=== PATIENT | male | born 1945 | race Caucasian/White ===

== ENCOUNTER 2019-07-28 07:50 | Inpatient (IN) | payer MEDICARE, OTHER, SELFPAY ==
[2019-07-28] VITALS (11 sets, daily range): BP systolic 112–173; BP diastolic 62–93; PULSE 74–153; RESP 16–34; TEMP 36.7–37.8; O2SAT 91–96; BMI 24.3
--- NOTE | 2019-07-28 08:01 | XRR_ITS ---
PROCEDURE INFORMATION: Exam: XR Chest, 1 View Exam date and time: 07/28/2019 8:28 AM Age: 73 years old Clinical indication: Shortness of breath; Additional info: SOB TECHNIQUE: Imaging protocol: XR of the chest Views: Frontal portable upright view of the chest. COMPARISON: CR Chest 2 views* [id number] 10/22/2016 7:20 PM FINDINGS: Lungs: Patchy bibasilar pulmonary mixed interstitial and alveolar infiltrates. The pulmonary vasculature is normal. Pleural space: No pleural effusion. No pneumothorax. Heart/Mediastinum: The heart is normal in size and contour. Mediastinum: Stable. Bones/joints: Stable. XR/XR chest 1V portable [id number] IMPRESSION: Patchy bibasilar pulmonary infiltrates. Pneumonitis is difficult to exclude. Clinical correlation is recommended.
--- NOTE | 2019-07-28 08:02 | W.ED.GENADLT ---
Documented by User: KARY Kaufman 07/28/19 08:05 HPI - General Adult General: Chief complaint: Shortness of Breath/Dyspnea Stated complaint: shortness of breath Time Seen by Provider: 07/28/19 08:01 History of Present Illness: HPI narrative: Patient presents via ambulance with a 3 to 4-day history of shortness of breath worsening. Patient received amiodarone and breathing treatment in the ambulance. Patient is not on oxygen at home does not do breathing treatments. History of COPD patient continues to smoke. Patient has had a fever and productive cough denies any chest pain Associated symptoms: Reports dyspnea; Deny chest pain, headache(s), nausea, rash or vomiting Review of Systems Const: Reports: fever, chills and body aches Eyes: Denies: change in vision or blurry vision ENMT: Denies: throat pain or nasal congestion Card: Denies: chest pain or shortness of breath on exertion Resp: Reports: shortness of breath, productive cough and wheezing; Denies: non-productive cough GI: Denies: abdominal pain, nausea or vomiting : Denies: difficulty urinating Musc: Denies: extremity pain Skin/Breast: Denies: rash Neuro: Denies: headache Psych: Denies: anxiety or depression Cornell/Lymph: Denies: easy bruising PFSH ED PFSH: Medical History Dementia GERD (gastroesophageal reflux disease) History of hypertension Hyperlipidemia Surgical History History of hernia surgery Family History Father CAD (coronary artery disease) Social History Smoking and tobacco status: current every day smoker Alcohol intake: never Substance/Drug Use: never Physical Exam Const: COMMON NORMALS: no apparent distress, average body habitus and oriented x3 HENMT: COMMON NORMALS: normocephalic HEAD & SCALP: normal to inspection and normocephalic FACE & SINUS: normal facial exam Eye: COMMON NORMALS: conjunctivae normal GENERAL EYE: normal appearance of both eyes CONJUNCTIVA: Yes conjunctivae normal Neck/C-Spine: COMMON NORMALS: no JVD Chest: COMMONS NORMALS: inspection of chest normal Resp: EFFORT & INSPECTION: Yes abnormal respiratory pattern, Yes tachypneic and Yes respiratory distress AUSCULTATION: wheezes expiratory wheezes, inspiratory wheezes and scattered wheezes and diminished lung sounds Cardio: COMMON NORMALS: no JVD, regular rate and regular rhythm RATE: regular rate RHYTHM: regular rhythm GI: COMMON NORMALS: normal to inspection, nondistended, normoactive bowel sounds Extremity: COMMON NORMALS: normal to inspection and full ROM Neuro: COMMON NORMALS: oriented x3 Course Vital Signs: Vital signs: Vital Signs Temperature 98.2 F 07/28/19 13:42 Pulse Rate 93 07/28/19 13:42 Respiratory Rate 20 H 07/28/19 13:42 Blood Pressure 115/70 07/28/19 13:42 Pulse Oximetry 95 07/28/19 13:[address] [facility] - General Adult Lab Data: Labs: Lab Results 07/28/19 07/28/19 07/28/19 Range/Units 07:18 07:18 07:18 WBC 13.0 H (4.0-10.0) 10^3/ uL RBC 5.58 H (4.1-5.3) 10^6/u L Hgb 17.6 H (11.7-16.6) g/dL Hct 53.3 H (42.0-52.0) % MCV 95.5 H (80-94) fL MCH 31.5 (28.0-34.0) pg MCHC 33.0 (30.0-36.0) g/dL RDW 13.2 (12.1-15.1) % Plt Count 166 (130-400) 10^3/c mm MPV 11.7 H (7.4-10.4) fL Neut % (Auto) 82.6 % Lymph % (Auto) 5.9 % [place] % (Auto) 10.9 % Eos % (Auto) 0.0 % Baso % (Auto) 0.2 % Neut # (Auto) 10.7 H (1.8-7.7) 10^3/u L Lymph # (Auto) 0.8 (0.8-4.8) 10^3/u L [place] # (Auto) 1.4 H (0.2-0.9) 10^3/u L Eos # (Auto) 0.0 (0.0-0.8) 10^3/u L Baso # (Auto) 0.0 (0.0-0.1) 10^3/u L Nucleated RBC % (a uto) 0 % Nucleated RBCs # 0.0 /100WBC Specimen Type Sample Site ABG pH (7.35-7.45) ABG pCO2 (35-45) mmHg ABG pO2 (80.0-100.0) mmH g ABG HCO3 (22-26) mmol/L ABG O2 Saturation ABG Base Excess (-2.0-2.0) mmol/ L Juan Test A-a O2 Gradient (5-10) mmHg Hematocrit (42-52) % Hgb O2 Saturation (95-100) % Carboxyhemoglobin (0.4-20.1) %THgb Methemoglobin (0.4-1.5) % Total Hemoglobin (14-18) g/dL Ionized Calcium (1.1-1.4) mmol/L O2 Delivery Device O2 Liters/Min % Drawing In Machine Tender ID Sodium 136 (136-145) mmol/L Potassium 3.8 (3.5-5.1) mmol/L Chloride 93 L (98-107) mmol/L Carbon Dioxide 27 (22-29) mmol/L Anion Gap 19.8 H (5-19) BUN 15 (8-23) mg/dL Creatinine 1.2 (0.7-1.2) mg/dL Glucose 133 H (65-115) mg/dL Calculated Osmolal ity 280 L (285-295) mOsm/k g Lactic Acid (0.5-2.2) mmol/L Calcium 10.0 (8.5-10.5) mg/dL Magnesium 2.1 (1.7-2.3) mg/dL Total Bilirubin 0.7 (0.15-1.2) mg/dL AST 45 H (0-40) U/L ALT 24 (0-41) U/L Alkaline Phosphata se 100 (40-130) IU/L Troponin T Baselin e 89 H (0-15) ng/mL Troponin T 120 Min [place] (0-15) ng/mL Delta Troponin T (0-10) ABS# NT-Pro-B Natriuret Pep 1353 H (0-125) pg/mL Total Protein 9.0 H (6.6-8.7) g/dL Albumin 4.0 (3.5-5.2) g/dL Globulin 5.0 H (1.3-4.6) g/dL Influenza Type A A g (Negative) POC Influenza B Ag (Negative) 07/28/19 07/28/19 07/28/19 Range/Units 08:10 08:24 08:28 WBC (4.0-10.0) 10^3/ uL RBC (4.1-5.3) 10^6/u L Hgb (11.7-16.6) g/dL Hct (42.0-52.0) % MCV (80-94) fL MCH (28.0-34.0) pg MCHC (30.0-36.0) g/dL RDW (12.1-15.1) % Plt Count (130-400) 10^3/c mm MPV (7.4-10.4) fL Neut % (Auto) % Lymph % (Auto) % [place] % (Auto) % Eos % (Auto) % Baso % (Auto) % Neut # (Auto) (1.8-7.7) 10^3/u L Lymph # (Auto) (0.8-4.8) 10^3/u L [place] # (Auto) (0.2-0.9) 10^3/u L Eos # (Auto) (0.0-0.8) 10^3/u L Baso # (Auto) (0.0-0.1) 10^3/u L Nucleated RBC % (a uto) % Nucleated RBCs # /100WBC Specimen Type Arterial Sample Site Radial, left ABG pH 7.39 (7.35-7.45) ABG pCO2 41.7 (35-45) mmHg ABG pO2 57.5 L (80.0-100.0) mmH g ABG HCO3 25.0 (22-26) mmol/L ABG O2 Saturation 91.5 ABG Base Excess -0.2 (-2.0-2.0) mmol/ L Juan Test Pos A-a O2 Gradient 40.2 H (5-10) mmHg Hematocrit 48.1 (42-52) % Hgb O2 Saturation 90.4 L (95-100) % Carboxyhemoglobin 0.9 (0.4-20.1) %THgb Methemoglobin 0.4 (0.4-1.5) % Total Hemoglobin 15.7 (14-18) g/dL Ionized Calcium 1.1 (1.1-1.4) mmol/L O2 Delivery Device Nc O2 Liters/Min 3.5 % Drawing In Machine Tender ID amh Sodium 137.0 (136-145) mmol/L Potassium 3.4 L (3.5-5.1) mmol/L Chloride (98-107) mmol/L Carbon Dioxide (22-29) mmol/L Anion Gap (5-19) BUN (8-23) mg/dL Creatinine (0.7-1.2) mg/dL Glucose 119.0 H (65-115) mg/dL Calculated Osmolal ity (285-295) mOsm/k g Lactic Acid 1.7 (0.5-2.2) mmol/L Calcium (8.5-10.5) mg/dL Magnesium (1.7-2.3) mg/dL Total Bilirubin (0.15-1.2) mg/dL AST (0-40) U/L ALT (0-41) U/L Alkaline Phosphata se (40-130) IU/L Troponin T Baselin e (0-15) ng/mL Troponin T 120 Min [place] (0-15) ng/mL Delta Troponin T (0-10) ABS# NT-Pro-B Natriuret Pep (0-125) pg/mL Total Protein (6.6-8.7) g/dL Albumin (3.5-5.2) g/dL Globulin (1.3-4.6) g/dL Influenza Type A A g Negative (Negative) POC Influenza B Ag Negative (Negative) 07/28/19 Range/Units 09:22 WBC (4.0-10.0) 10^3/ uL RBC (4.1-5.3) 10^6/u L Hgb (11.7-16.6) g/dL Hct (42.0-52.0) % MCV (80-94) fL MCH (28.0-34.0) pg MCHC (30.0-36.0) g/dL RDW (12.1-15.1) % Plt Count (130-400) 10^3/c mm MPV (7.4-10.4) fL Neut % (Auto) % Lymph % (Auto) % [place] % (Auto) % Eos % (Auto) % Baso % (Auto) % Neut # (Auto) (1.8-7.7) 10^3/u L Lymph # (Auto) (0.8-4.8) 10^3/u L [place] # (Auto) (0.2-0.9) 10^3/u L Eos # (Auto) (0.0-0.8) 10^3/u L Baso # (Auto) (0.0-0.1) 10^3/u L Nucleated RBC % (a uto) % Nucleated RBCs # /100WBC Specimen Type Sample Site ABG pH (7.35-7.45) ABG pCO2 (35-45) mmHg ABG pO2 (80.0-100.0) mmH g ABG HCO3 (22-26) mmol/L ABG O2 Saturation ABG Base Excess (-2.0-2.0) mmol/ L Juan Test A-a O2 Gradient (5-10) mmHg Hematocrit (42-52) % Hgb O2 Saturation (95-100) % Carboxyhemoglobin (0.4-20.1) %THgb Methemoglobin (0.4-1.5) % Total Hemoglobin (14-18) g/dL Ionized Calcium (1.1-1.4) mmol/L O2 Delivery Device O2 Liters/Min % Drawing In Machine Tender ID Sodium (136-145) mmol/L Potassium (3.5-5.1) mmol/L Chloride (98-107) mmol/L Carbon Dioxide (22-29) mmol/L Anion Gap (5-19) BUN (8-23) mg/dL Creatinine (0.7-1.2) mg/dL Glucose (65-115) mg/dL Calculated Osmolal ity (285-295) mOsm/k g Lactic Acid (0.5-2.2) mmol/L Calcium (8.5-10.5) mg/dL Magnesium (1.7-2.3) mg/dL Total Bilirubin (0.15-1.2) mg/dL AST (0-40) U/L ALT (0-41) U/L Alkaline Phosphata se (40-130) IU/L Troponin T Baselin e (0-15) ng/mL Troponin T 120 Min [place] 82.67 H (0-15) ng/mL Delta Troponin T -6.33 L (0-10) ABS# NT-Pro-B Natriuret Pep (0-125) pg/mL Total Protein (6.6-8.7) g/dL Albumin (3.5-5.2) g/dL Globulin (1.3-4.6) g/dL Influenza Type A A g (Negative) POC Influenza B Ag (Negative) Discharge Plan Discharge Patient Disposition: Admitted As Inpatient Admit Provider: Shanti Rosas Clinical Impression: Pneumonia, Sepsis, GERD (gastroesophageal reflux disease), Dementia Condition: Stable Discharge Date/Time: 07/28/19 13:03 Sign Out Sign Out Data: Patient Sign Out occurred on 07/28/19 at 08:23. Patient's care was discussed, and care was transferred from to Erik Howard DO. Coding Level of Care Code ED Board Design Engineer for Chg Fwd Exam Comprehensive Documented by User: Erik Howard DO 07/28/19 14:57 HPI - General Adult General: Chief complaint: Shortness of Breath/Dyspnea Stated complaint: shortness of breath Time Seen by Provider: 07/28/19 08:01 History of Present Illness: HPI narrative: Care assumed from midlevel. This is a 71-year-old male presents to cope shortness of breath moderately productive cough. He is also had a low-grade fever. Initially he was significantly tachycardic with what appeared to be some underlying a flutter with resuscitation he did improve. Onset (ago): day(s) Location: chest Radiation: non-radiation Severity: severe Pain Consistency: constant Relieving factors: rest and other (Oxygen) Exacerbating factors: rest Associated symptoms: Reports dyspnea, malaise, nausea and short of breath; Deny chest pain or rash Review of Systems Const: Reports: malaise ENMT: Denies: throat pain, ear pain, nasal discharge or nasal congestion Card: Denies: chest pain, edema, shortness of breath on exertion or shortness of breath when lying down Resp: Reports: shortness of breath, non-productive cough, wheezing and chest congestion GI: Reports: nausea : Denies: flank pain, painful urination, urinary frequency or urinary urgency Skin/Breast: Denies: rash or itching PFSH ED PFSH: Medical History Dementia GERD (gastroesophageal reflux disease) History of hypertension Hyperlipidemia Surgical History History of hernia surgery Family History Father CAD (coronary artery disease) Social History Smoking and tobacco status: current every day smoker Alcohol intake: never Substance/Drug Use: never Physical Exam Const: GENERAL APPEARANCE: cooperative, ill appearing and frail appearing ORIENTATION/CONSCIOUSNESS: Yes awake HENMT: COMMON NORMALS: normocephalic, head/scalp atraumatic, hearing grossly normal bilaterally, external ears normal, EAC's normal, TM's normal bilaterally, nasal mucous membranes and turbinates normal, moist oral mucous membranes and oropharynx normal HEAD & SCALP: normocephalic and atraumatic NOSE: nasal mucous membranes and turbinates normal EXTERNAL EAR: Yes external ears normal EXTERNAL AUDITORY CANAL: EAC's normal TYMPANIC MEMBRANE: TM's normal bilaterally Eye: COMMON NORMALS: PERRL, EOMs intact bilaterally, conjunctivae normal and no scleral icterus CONJUNCTIVA: Yes conjunctivae normal PUPIL: Yes PERRL Neck/C-Spine: COMMON NORMALS: full ROM, no lymphadenopathy, supple and no JVD Lymph: LYMPHATIC: no lymphadenopathy noted and no lymphedema noted Resp: EFFORT & INSPECTION: Yes tachypneic, Yes respiratory distress, Yes labored and Yes actively coughing AUSCULTATION: rhonchi throughout, wheezes and diminished lung sounds Cardio: COMMON NORMALS: no JVD RATE: tachycardic GI: COMMON NORMALS: soft to palpation and no hepatosplenomegaly AUSCULTATION: Yes normoactive bowel sounds PALPATION: Yes soft, No tender, No guarding and Yes no hepatosplenomegaly Extremity: COMMON NORMALS: normal to inspection, normal capillary refill, no clubbing, cyanosis or edema, no calf tenderness and no pedal edema Skin: COMMON NORMALS: no rashes or lesions noted GENERAL SKIN EXAM: no rashes or lesions noted Course Vital Signs: Vital signs: Vital Signs Temperature 98.2 F 07/28/19 13:42 Pulse Rate 93 07/28/19 13:42 Respiratory Rate 20 H 07/28/19 13:42 Blood Pressure 115/70 07/28/19 13:42 Pulse Oximetry 95 07/28/19 13:[address] [facility] - General Adult Lab Data: Labs: Lab Results 07/28/19 07/28/19 07/28/19 Range/Units 07:18 07:18 07:18 WBC 13.0 H (4.0-10.0) 10^3/ uL RBC 5.58 H (4.1-5.3) 10^6/u L Hgb 17.6 H (11.7-16.6) g/dL Hct 53.3 H (42.0-52.0) % MCV 95.5 H (80-94) fL MCH 31.5 (28.0-34.0) pg MCHC 33.0 (30.0-36.0) g/dL RDW 13.2 (12.1-15.1) % Plt Count 166 (130-400) 10^3/c mm MPV 11.7 H (7.4-10.4) fL Neut % (Auto) 82.6 % Lymph % (Auto) 5.9 % [place] % (Auto) 10.9 % Eos % (Auto) 0.0 % Baso % (Auto) 0.2 % Neut # (Auto) 10.7 H (1.8-7.7) 10^3/u L Lymph # (Auto) 0.8 (0.8-4.8) 10^3/u L [place] # (Auto) 1.4 H (0.2-0.9) 10^3/u L Eos # (Auto) 0.0 (0.0-0.8) 10^3/u L Baso # (Auto) 0.0 (0.0-0.1) 10^3/u L Nucleated RBC % (a uto) 0 % Nucleated RBCs # 0.0 /100WBC Specimen Type Sample Site ABG pH (7.35-7.45) ABG pCO2 (35-45) mmHg ABG pO2 (80.0-100.0) mmH g ABG HCO3 (22-26) mmol/L ABG O2 Saturation ABG Base Excess (-2.0-2.0) mmol/ L Juan Test A-a O2 Gradient (5-10) mmHg Hematocrit (42-52) % Hgb O2 Saturation (95-100) % Carboxyhemoglobin (0.4-20.1) %THgb Methemoglobin (0.4-1.5) % Total Hemoglobin (14-18) g/dL Ionized Calcium (1.1-1.4) mmol/L O2 Delivery Device O2 Liters/Min % Drawing In Machine Tender ID Sodium 136 (136-145) mmol/L Potassium 3.8 (3.5-5.1) mmol/L Chloride 93 L (98-107) mmol/L Carbon Dioxide 27 (22-29) mmol/L Anion Gap 19.8 H (5-19) BUN 15 (8-23) mg/dL Creatinine 1.2 (0.7-1.2) mg/dL Glucose 133 H (65-115) mg/dL Calculated Osmolal ity 280 L (285-295) mOsm/k g Lactic Acid (0.5-2.2) mmol/L Calcium 10.0 (8.5-10.5) mg/dL Magnesium 2.1 (1.7-2.3) mg/dL Total Bilirubin 0.7 (0.15-1.2) mg/dL AST 45 H (0-40) U/L ALT 24 (0-41) U/L Alkaline Phosphata se 100 (40-130) IU/L Troponin T Baselin e 89 H (0-15) ng/mL Troponin T 120 Min [place] (0-15) ng/mL Delta Troponin T (0-10) ABS# NT-Pro-B Natriuret Pep 1353 H (0-125) pg/mL Total Protein 9.0 H (6.6-8.7) g/dL Albumin 4.0 (3.5-5.2) g/dL Globulin 5.0 H (1.3-4.6) g/dL Influenza Type A A g (Negative) POC Influenza B Ag (Negative) 07/28/19 07/28/19 07/28/19 Range/Units 08:10 08:24 08:28 WBC (4.0-10.0) 10^3/ uL RBC (4.1-5.3) 10^6/u L Hgb (11.7-16.6) g/dL Hct (42.0-52.0) % MCV (80-94) fL MCH (28.0-34.0) pg MCHC (30.0-36.0) g/dL RDW (12.1-15.1) % Plt Count (130-400) 10^3/c mm MPV (7.4-10.4) fL Neut % (Auto) % Lymph % (Auto) % [place] % (Auto) % Eos % (Auto) % Baso % (Auto) % Neut # (Auto) (1.8-7.7) 10^3/u L Lymph # (Auto) (0.8-4.8) 10^3/u L [place] # (Auto) (0.2-0.9) 10^3/u L Eos # (Auto) (0.0-0.8) 10^3/u L Baso # (Auto) (0.0-0.1) 10^3/u L Nucleated RBC % (a uto) % Nucleated RBCs # /100WBC Specimen Type Arterial Sample Site Radial, left ABG pH 7.39 (7.35-7.45) ABG pCO2 41.7 (35-45) mmHg ABG pO2 57.5 L (80.0-100.0) mmH g ABG HCO3 25.0 (22-26) mmol/L ABG O2 Saturation 91.5 ABG Base Excess -0.2 (-2.0-2.0) mmol/ L Juan Test Pos A-a O2 Gradient 40.2 H (5-10) mmHg Hematocrit 48.1 (42-52) % Hgb O2 Saturation 90.4 L (95-100) % Carboxyhemoglobin 0.9 (0.4-20.1) %THgb Methemoglobin 0.4 (0.4-1.5) % Total Hemoglobin 15.7 (14-18) g/dL Ionized Calcium 1.1 (1.1-1.4) mmol/L O2 Delivery Device Nc O2 Liters/Min 3.5 % Drawing In Machine Tender ID amh Sodium 137.0 (136-145) mmol/L Potassium 3.4 L (3.5-5.1) mmol/L Chloride (98-107) mmol/L Carbon Dioxide (22-29) mmol/L Anion Gap (5-19) BUN (8-23) mg/dL Creatinine (0.7-1.2) mg/dL Glucose 119.0 H (65-115) mg/dL Calculated Osmolal ity (285-295) mOsm/k g Lactic Acid 1.7 (0.5-2.2) mmol/L Calcium (8.5-10.5) mg/dL Magnesium (1.7-2.3) mg/dL Total Bilirubin (0.15-1.2) mg/dL AST (0-40) U/L ALT (0-41) U/L Alkaline Phosphata se (40-130) IU/L Troponin T Baselin e (0-15) ng/mL Troponin T 120 Min [place] (0-15) ng/mL Delta Troponin T (0-10) ABS# NT-Pro-B Natriuret Pep (0-125) pg/mL Total Protein (6.6-8.7) g/dL Albumin (3.5-5.2) g/dL Globulin (1.3-4.6) g/dL Influenza Type A A g Negative (Negative) POC Influenza B Ag Negative (Negative) 07/28/19 Range/Units 09:22 WBC (4.0-10.0) 10^3/ uL RBC (4.1-5.3) 10^6/u L Hgb (11.7-16.6) g/dL Hct (42.0-52.0) % MCV (80-94) fL MCH (28.0-34.0) pg MCHC (30.0-36.0) g/dL RDW (12.1-15.1) % Plt Count (130-400) 10^3/c mm MPV (7.4-10.4) fL Neut % (Auto) % Lymph % (Auto) % [place] % (Auto) % Eos % (Auto) % Baso % (Auto) % Neut # (Auto) (1.8-7.7) 10^3/u L Lymph # (Auto) (0.8-4.8) 10^3/u L [place] # (Auto) (0.2-0.9) 10^3/u L Eos # (Auto) (0.0-0.8) 10^3/u L Baso # (Auto) (0.0-0.1) 10^3/u L Nucleated RBC % (a uto) % Nucleated RBCs # /100WBC Specimen Type Sample Site ABG pH (7.35-7.45) ABG pCO2 (35-45) mmHg ABG pO2 (80.0-100.0) mmH g ABG HCO3 (22-26) mmol/L ABG O2 Saturation ABG Base Excess (-2.0-2.0) mmol/ L Juan Test A-a O2 Gradient (5-10) mmHg Hematocrit (42-52) % Hgb O2 Saturation (95-100) % Carboxyhemoglobin (0.4-20.1) %THgb Methemoglobin (0.4-1.5) % Total Hemoglobin (14-18) g/dL Ionized Calcium (1.1-1.4) mmol/L O2 Delivery Device O2 Liters/Min % Drawing In Machine Tender ID Sodium (136-145) mmol/L Potassium (3.5-5.1) mmol/L Chloride (98-107) mmol/L Carbon Dioxide (22-29) mmol/L Anion Gap (5-19) BUN (8-23) mg/dL Creatinine (0.7-1.2) mg/dL Glucose (65-115) mg/dL Calculated Osmolal ity (285-295) mOsm/k g Lactic Acid (0.5-2.2) mmol/L Calcium (8.5-10.5) mg/dL Magnesium (1.7-2.3) mg/dL Total Bilirubin (0.15-1.2) mg/dL AST (0-40) U/L ALT (0-41) U/L Alkaline Phosphata se (40-130) IU/L Troponin T Baselin e (0-15) ng/mL Troponin T 120 Min [place] 82.67 H (0-15) ng/mL Delta Troponin T -6.33 L (0-10) ABS# NT-Pro-B Natriuret Pep (0-125) pg/mL Total Protein (6.6-8.7) g/dL Albumin (3.5-5.2) g/dL Globulin (1.3-4.6) g/dL Influenza Type A A g (Negative) POC Influenza B Ag (Negative) Imaging Data^: CXR: Radiologist's impression: Imaging protocol: XR of the chest Views: Frontal portable upright view of the chest. COMPARISON: CR Chest 2 views* [id number] 10/22/2016 7:20 PM FINDINGS: Lungs: Patchy bibasilar pulmonary mixed interstitial and alveolar infiltrates. The pulmonary vasculature is normal. Pleural space: No pleural effusion. No pneumothorax. Heart/Mediastinum: The heart is normal in size and contour. Mediastinum: Stable. Bones/joints: Stable. XR/XR chest 1V portable [id number] IMPRESSION: Patchy bibasilar pulmonary infiltrates. Pneumonitis is difficult to exclude. Clinical correlation is recommended. Dictated By:Tapan Maloney MD Discharge Plan Discharge Patient Disposition: Admitted As Inpatient Admit Provider: Shanti Rosas Clinical Impression: Pneumonia, Sepsis, GERD (gastroesophageal reflux disease), Dementia Condition: Stable Discharge Date/Time: 07/28/19 13:03 Sign Out Sign Out Data: Patient Sign Out occurred on 07/28/19 at 08:23. Patient's care was discussed, and care was transferred from to Erik Howard DO. Coding Level of Care Code ED Board Design Engineer for Chg Fwd Exam Comprehensive
--- NOTE | 2019-07-28 08:03 | ECG_ITS ---
Measurements Intervals [place] Rate: 143 P: IN: 0 QRS: 82 QRSD: 126 T: 72 QT: 288 QTc: 445 UNCERTAIN REGULAR RHYTHM MODERATE INTRAVENTRICULAR CONDUCTION DELAY [110+ ms QRS DURATION] ST ELEVATION CONSISTENT WITH INJURY, PERICARDITIS, OR EARLY REPOLARIZATION ELEVATION W/O NORMALLY INFLECTED T WAVE] NONSPECIFIC T-WAVE ABNORMALITY CRITICAL TEST RESULT Compared to ECG 10/22/2016 17:39:58 ST (T wave) deviation now present Early repolarization now present Sinus tachycardia no longer present T-wave abnormality still present Electronically Signed On 07-28-2019 19:32:39 CDT by Jose Naylor M.D. [email or web address]
[2019-07-28] MEDS: sodium chloride 0.9% 1,000 ML 999 ML IV (08:09)
[2019-07-28 08:10] LABS: Basophils % 0.2 %; Hematocrit 53.3 % (42.0-52.0); Hemoglobin 17.6 g/dL (11.7-16.6); Lymphocytes # 0.8 10^3/uL (0.8-4.8); Lymphocytes % 5.9 %; Mean Corpuscular Hemoglobin 31.5 pg (28.0-34.0); Mean Corpuscular Volume 95.5 fL (80-94); Mean Platelet Volume 11.7 fL (7.4-10.4); Monocytes # 1.4 10^3/uL (0.2-0.9); Monocytes % 10.9 %; Neutrophils # 10.7 10^3/uL (1.8-7.7); Neutrophils % 82.6 %; Nucleated Red Blood Cells % 0 %; Platelet Count 166 10^3/cmm (130-400); Red Blood Count 5.58 10^6/uL (4.1-5.3); Red Cell Distribution Width 13.2 % (12.1-15.1)
[2019-07-28] MEDS: ipratropium-albuterol 3 mL Neb INHALATION ×3 (08:20→20:56)
[2019-07-28] MEDS: sodium chloride 0.9% 2,177.25 ML 2177.3 ML IV (08:29)
[2019-07-28] MEDS: levofloxacin-dextrose 5 % 750 MG/150 ML PREMIX 150 MG IV (08:30)
[2019-07-28 08:34] LABS: ABG PCO2 41.7 mmHg (35-45); ABG PH Result 7.39 (7.35-7.45); Alveolar-Arterial Oxygen Gradi 40.2 mmHg (5-10); Arterial Blood Gas Hematocrit 48.1 % (42-52); Base Excess ABG -0.2 mmol/L (-2.0-2.0); Blood Gas Allen Test Pos; Blood Gas LPM 3.5 %; Blood Gas Operator Identificat amh; Blood Gas Sample Site Radial, left; Blood Gas Sample Type Arterial; Carboxyhemoglobin 0.9 %THgb (0.4-20.1); HGB O2 Sat 90.4 % (95-100); Ionized Calcium Level - ABG 1.1 mmol/L (1.1-1.4); Methemoglobin 0.4 % (0.4-1.5); Oxygen Device NC; Oxygen Saturation ABG 91.5; PO2 ABG 57.5 mmHg (80.0-100.0); Potassium Level - ABG 3.4 mmol/L (3.5-5.0); Total Hemoglobin 15.7 g/dL (14-18)
[2019-07-28 08:38] LABS: Troponin(5th) Baseline 89 ng/mL (0-15)
[2019-07-28 08:41] LABS: Influenza A by IFA Negative (Negative); Influenza B by IFA Negative (Negative)
[2019-07-28 08:46] LABS: Alanine Aminotransferase 24 U/L (0-41); Alkaline Phosphatase 100 IU/L (40-130); Anion Gap 19.8 (5-19); Aspartate Amino Transferase 45 U/L (0-40); Blood Urea Nitrogen 15 mg/dL (8-23); Carbon Dioxide 27 mmol/L (22-29); Chloride 93 mmol/L (98-107); Creatinine Clr Calc Pharmacy 55.1477; Glucose 133 mg/dL (65-115); Magnesium 2.1 mg/dL (1.7-2.3); NT Pro B Type Natriuretic Pept 1353 pg/mL (0-125); Osmolality Calculated 280 mOsm/kg (285-295); Potassium 3.8 mmol/L (3.5-5.1); Sodium 136 mmol/L (136-145); Total Bilirubin 0.7 mg/dL (0.15-1.2)
[2019-07-28 09:15] LABS: Lactic Sepsis W/Reflex 1.7 mmol/L (0.5-2.2)
[2019-07-28 09:52] LABS: Troponin 5 2HR 82.67 ng/mL (0-15)
[2019-07-28 09:54] LABS: Troponin 5 2HR Delta -6.33 ABS# (0-10)
--- NOTE | 2019-07-28 10:03 | ECG_ITS ---
Measurements Intervals [place] Rate: 88 P: 40 IN: 172 QRS: 16 QRSD: 137 T: 132 QT: 399 QTc: 485 SINUS RHYTHM INTRAVENTRICULAR CONDUCTION DELAY [130+ ms QRS DURATION] T wave inversion laterally, consider ischemia POSSIBLE INFERIOR MYOCARDIAL INFARCTION [30 ms Q WAVE IN II/aVF], PROBABLY OLD Compared to ECG 10/22/2016 17:39:58 Myocardial infarct finding now present Sinus tachycardia no longer present Electronically Signed On 07-28-2019 19:37:55 CDT by Jose Naylor M.D. [email or web address]
[2019-07-28] MEDS: piperacillin-tazobactam 3.375 GM in sodium chloride 0.9% (plus) 100 ML IV (10:38)
--- NOTE | 2019-07-28 12:03 | P.HP_ITS ---
Providers/Chief Complaint Admitting Physician: Shanti Rosas DO Primary Care Provider: Dr. Montes Chief Complaint: shortness of breath History of Present Illness Isaac Simpson is a 73 year old male with a past medical history of COPD, hypertension and hyperlipidemia that presented to the emergency department today for shortness of breath. Patient has no family members present at bedside and due to what appears to be chronic dementia difficult to obtain HPI. Patient denies any chest pain at this time, reports some occasional shortness of breath and productive cough. He denies being on any oxygen at home. Denies any abdominal pain, no nausea, no vomiting. Patient was seen and evaluated in the emergency department noted to have concern for sepsis secondary to pneumonia and admitted for further evaluation and treatment Review of Systems Const: Denies: fever or chills Eyes: Denies: change in vision ENMT: Denies: nasal congestion Card: Denies: chest pain, palpitations or edema Resp: Reports: shortness of breath and productive cough; Denies: coughing up blood GI: Reports: constipation; Denies: abdominal pain, nausea, vomiting, diarrhea, blood in stool or black tarry stool : Denies: painful urination or blood in urine Musc: Denies: extremity pain or muscle cramps Skin/Breast: Denies: rash or new lesion Neuro: Denies: headache or dizziness Psych: Denies: anxiety or depression Endo: Denies: excessive urination or hot flashes Cornell/Lymph: Denies: easy bruising or easy bleeding Medications/Allergies Home Medications Medication Instructions Recorded Confirmed Last Taken Type aspirin 81 mg PO DAILY 07/28/19 07/28/19 07/21/19 History donepezil 10 mg PO DAILY 07/28/19 07/28/19 07/21/19 History memantine 10 mg PO BID 07/28/19 07/28/19 07/21/19 History mirtazapine 30 mg PO BEDTIME 07/28/19 07/28/19 07/21/19 History pantoprazole 40 mg PO DAILY 07/28/19 07/28/19 07/21/19 History tamsulosin 0.4 mg PO DAILY 07/28/19 07/28/19 07/21/19 History Allergies Allergy/AdvReac Type Severity Reaction Status Date / Time codeine Allergy Unknown Verified 07/28/19 07:57 PFSH Acute PFSH: Medical History (Updated 07/28/19 @ 12:15 by Shanti Rosas DO) Dementia GERD (gastroesophageal reflux disease) History of hypertension Hyperlipidemia Surgical History (Updated 07/28/19 @ 12:15 by Shanti Rosas DO) History of hernia surgery Family History (Updated 07/28/19 @ 12:15 by Shanti Rosas DO) Father CAD (coronary artery disease) Social History (Updated 07/28/19 @ 12:16 by Shanti Rosas DO) Smoking and tobacco status: current every day smoker Alcohol intake: never Substance/Drug Use: never Vitals/I&O/Wt Last Vital Signs Temp 100.0 F H 07/28/19 07:51 Pulse 127 H 07/28/19 08:39 Resp 24 H 07/28/19 08:39 BP 173/93 07/28/19 07:51 Pulse Ox 95 07/28/19 08:39 Weight last 48 hrs Weight 72.575 kg Physical Exam Const: COMMON NORMALS: alert GENERAL APPEARANCE: cooperative ORIENTATION/CONSCIOUSNESS: Yes awake, Yes oriented to person, Yes oriented to place and Yes oriented to time OTHER: Oriented to place, not oriented to time HENMT: COMMON NORMALS: normocephalic and head/scalp atraumatic HEAD & SCALP: normocephalic and atraumatic Eye: COMMON NORMALS: PERRL PUPIL: Yes PERRL Neck/C-Spine: COMMON NORMALS: supple GENERAL: Yes normal visual inspection Resp: OTHER: Oxygen by nasal cannula in place, diminished breath sounds bilaterally with prolonged expiratory phase and expiratory wheezing bilaterally Cardio: COMMON NORMALS: no murmurs RATE: tachycardic RHYTHM: regular rh ythm GI: COMMON NORMALS: soft to palpation and non-tender INSPECTION: No abdominal distension AUSCULTATION: Yes normoactive bowel sounds PALPATION: Yes soft Extremity: COMMON NORMALS: no clubbing, cyanosis or edema and no calf tenderness Neuro: COMMON NORMALS: CN's II-XII intact bilaterally, moves all extremities and no focal motor deficits SENSORIUM/ORIENTATION: Yes alert, Yes oriented to person, Yes oriented to place and Yes oriented to time SPEECH: speech normal OTHER: Patient is confused, medications implied that he has underlying dementia, no family at bedside to know baseline. Patient is oriented to self, place but not oriented to time. Psych: COMMON NORMALS: cooperative Skin: COMMON NORMALS: no rashes or lesions noted GENERAL SKIN EXAM: no rashes or lesions noted Data : 07/28/19 07:18 07/28/19 07:18 Micro: Microbiology 07/28/19 08:32 Blood Culture - Preliminary Blood SPECIMEN COLLECTED 07/28/19 08:32 Blood Culture - Preliminary Blood SPECIMEN COLLECTED CXR: I personally reviewed and interpreted this imaging study as follows: Radiologist's impression: IMPRESSION: Patchy bibasilar pulmonary infiltrates. Pneumonitis is difficult to exclude. Clinical correlation is recommended. A&P Assessment and plan (1) Sepsis: Sepsis secondary to pneumonia, as documented by tachycardia, fever, leukocytosis IV fluids ordered, broad-spectrum antibiotics in the emergency department. We will continue on Levaquin Status: Acute Code(s): A41.9 - Sepsis, unspecified organism (2) Pneumonia: Broad-spectrum antibiotics provided in the emergency department, will co ntinue on Levaquin Respiratory therapy to assess and treat Oxygen per protocol. Concern for underlying COPD exacerbation as well with diffuse wheezing, will continue on prednisone Status: Acute Code(s): J18.9 - Pneumonia, unspecified organism (3) Dementia: Unknown baseline, no family present at bedside. Will attempt to reach family members. Patient is oriented to person and place, not oriented to time. Is on several medications to suggest underlying dementia Status: Acute Code(s): F03.90 - Unspecified dementia without behavioral disturbance Additional A&P Information Dehydration with hemoconcentration, continue to give gentle IV fluids Concern for COPD exacerbation: Respiratory therapy to assess and treat, oxygen per protocol, prednisone and Levaquin continued Reported prior history of hypertension with elevated blood pressures in the emergency department: We will continue to monitor closely DVT prophylaxis: Lovenox Diet: Cardiac CODE STATUS: Full code by default, will discuss further with family members, patient pleasantly confused therefore unable to address this with him in the ER Attestations Medical Necessity Statement*: Requires admission due to pneumonia with sepsis and COPD exacerbation. 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
--- NOTE | 2019-07-28 14:03 | ECG_ITS ---
Measurements Intervals [place] Rate: 106 P: 43 RI: 156 QRS: 66 QRSD: 136 T: 99 QT: 342 QTc: 455 SINUS TACHYCARDIA INTRAVENTRICULAR CONDUCTION DELAY [130+ ms QRS DURATION] POSSIBLE INFERIOR MYOCARDIAL INFARCTION , PROBABLY OLD [30 ms Q WAVE IN II/aVF] Compared to ECG 10/22/2016 17:39:58 Myocardial infarct finding now present T-wave abnormality no longer present Electronically Signed On 07-28-2019 19:35:51 CDT by Jose Naylor M.D. [email or web address]
[2019-07-28 14:38] LABS: Troponin 5 6HR 89.53 ng/mL (0-15); Troponin 5 6HR Delta 0.53 ng/L (0-12)
[2019-07-28] MEDS: enoxaparin 40 mg/0.4 mL Syringe SUBCUT (15:05)
[2019-07-28] MEDS: predniSONE 20 mg Tablet 40 MG PO (15:06)
[2019-07-28] MEDS: sodium chloride 0.9% 1,000 ML 75 ML IV (15:06)
[2019-07-28] MEDS: memantine 5 mg tablet 10 MG PO (17:16)
[2019-07-28] MEDS: mirtazapine 30 mg Tablet PO (20:17)
--- NOTE | 2019-07-28 20:24 | PC.NURSE ---
Pt is resting in bed, RR 36, with audible wheezes and some retractions noted, sats at 94% on 2.5L/NC. RT notified, and assessed pt, awaiting orders from physician.
--- NOTE | 2019-07-28 20:58 | PC.NURSE ---
RT obtained order for Q4 breathing treatments from physician. Rt to give tx.
[2019-07-29] VITALS (16 sets, daily range): BP systolic 125–150; BP diastolic 68–81; PULSE 74–98; RESP 18–24; TEMP 35.8–37; O2SAT 88–98
[2019-07-29] MEDS: ipratropium-albuterol 3 mL Neb INHALATION ×5 (00:12→20:33)
[2019-07-29] MEDS: sodium chloride 0.9% 1,000 ML 75 ML IV (02:40)
[2019-07-29 06:24] LABS: Basophils % 0.1 %; Hematocrit 41.9 % (42.0-52.0); Hemoglobin 13.6 g/dL (11.7-16.6); Lymphocytes # 0.9 10^3/uL (0.8-4.8); Lymphocytes % 7.1 %; Mean Corpuscular HGB Conc 32.5 g/dL (30.0-36.0); Mean Corpuscular Hemoglobin 30.2 pg (28.0-34.0); Mean Corpuscular Volume 92.9 fL (80-94); Mean Platelet Volume 11.8 fL (7.4-10.4); Monocytes # 0.4 10^3/uL (0.2-0.9); Monocytes % 3.2 %; Neutrophils # 10.7 10^3/uL (1.8-7.7); Neutrophils % 89.2 %; Nucleated Red Blood Cells % 0 %; Platelet Count 146 10^3/cmm (130-400); Red Blood Count 4.51 10^6/uL (4.1-5.3); Red Cell Distribution Width 13.4 % (12.1-15.1)
[2019-07-29 06:43] LABS: Anion Gap 12.4 (5-19); Blood Urea Nitrogen 17 mg/dL (8-23); Carbon Dioxide 26 mmol/L (22-29); Chloride 105 mmol/L (98-107); Glucose 173 mg/dL (65-115); Osmolality Calculated 291 mOsm/kg (285-295); Potassium 3.4 mmol/L (3.5-5.1); Sodium 140 mmol/L (136-145)
--- NOTE | 2019-07-29 10:57 | P.PN_ITS ---
Subjective Subjective: Interval history: Patient awake in bed at time of exam today. Reports that he continues to have cough and wheezing. Reports improvement from yesterday. Denies any abdominal pain or nausea, denies any chest pain. Vitals/I&O/Wt Last Vital Signs Temp 98.6 F 07/29/19 10:52 Pulse 89 07/29/19 10:52 Resp 18 07/29/19 10:52 BP 125/68 07/29/19 10:52 Pulse Ox 97 07/29/19 10:52 07/28/19 07/29/19 07/29/19 22:59 06:59 14:59 Intake Total 630 / 630 1120 / 1750 112 / 112 Output Total 1600 / 1600 275 / 1875 Balance -970 / -970 845 / -125 112 / 112 Weight last 48 hrs Weight 74.843 kg Weight 72.575 kg Physical Exam Const: COMMON NORMALS: alert GENERAL APPEARANCE: cooperative ORIENTATION/CONSCIOUSNESS: Yes awake, Yes oriented to person, Yes oriented to place and Yes oriented to time OTHER: Oriented to person and place HENMT: COMMON NORMALS: normocephalic and head/scalp atraumatic HEAD & SCALP: normocephalic and atraumatic Eye: COMMON NORMALS: PERRL PUPIL: Yes PERRL Neck/C-Spine: COMMON NORMALS: supple GENERAL: Yes normal visual inspection Resp: OTHER: Oxygen by nasal cannula in place, diminished breath sounds bilaterally with prolonged expiratory phase and expiratory wheezing bilaterally Cardio: COMMON NORMALS: no murmurs RATE: tachycardic GI: COMMON NORMALS: soft to palpation and non-tender INSPECTION: No abdominal distension AUSCULTATION: Yes normoactive bowel sounds PALPATION: Yes soft Extremity: COMMON NORMALS: no clubbing, cyanosis or edema and no calf tenderness Neuro: COMMON NORMALS: CN's II-XII intact bilaterally, moves all extremities and no focal motor deficits SENSORIUM/ORIENTATION: Yes alert, Yes oriented to person, Yes oriented to place and Yes oriented to time SPEECH: speech normal OTHER: Patient more alert today, alert and oriented to person and place Psych: COMMON NORMALS: cooperative Skin: COMMON NORMALS: no rashes or lesions noted GENERAL SKIN EXAM: no rashes or lesions noted Data : 07/29/19 05:20 07/29/19 05:20 Micro: Microbiology 07/28/19 08:32 Blood Culture - Preliminary Blood SPECIMEN COLLECTED 07/28/19 08:32 Blood Culture - Preliminary Blood SPECIMEN COLLECTED A&P Assessment and plan (1) Sepsis: Improved Continue IV antibiotics IV fluids discontinued today Status: Acute Code(s): A41.9 - Sepsis, unspecified organism (2) Pneumonia: Continue on IV Levaquin Continue with respiratory therapy to assess and treat, wean oxygen as tolerated with a goal oxygen saturation of 90 to 92%. Status: Acute Code(s): J18.9 - Pneumonia, unspecified organism (3) Dementia: Discussed with significant other today, patient appears to be at baseline, underlying dementia that is being treated by primary care provider Status: Acute Code(s): F03.90 - Unspecified dementia without behavioral disturbance Additional A&P Information Dehydration with hemoconcentration, improved. Discontinue IV fluids COPD exacerbation: Respiratory therapy to assess and treat, oxygen per protocol, prednisone and Levaquin continued Reported prior history of hypertension: Blood pressures remain within normal limits at this time DVT prophylaxis: Lovenox Diet: Cardiac CODE STATUS: Full code by default, will discuss further with family members, patient pleasantly confused therefore unable to address this with him in the ER Attestations Medical Necessity Statement*: Patient requires continued hospitalization due to sepsis, pneumonia, COPD exacerbation Coding Level of Care Code Acute Second Baker for [employer]oli Szymanski Diagnoses Sepsis A41.9 Pneumonia J18.9 Dementia F03.90
[2019-07-29] MEDS: donepezil 5 MG Tablet 10 MG PO (11:16)
[2019-07-29] MEDS: aspirin 81 mg Chew Tablet PO (11:16)
[2019-07-29] MEDS: levofloxacin-dextrose 5 % 750 MG/150 ML PREMIX 150 MG IV (11:16)
[2019-07-29] MEDS: pantoprazole DR 40 mg Tablet PO (11:17)
[2019-07-29] MEDS: memantine 5 mg tablet 10 MG PO ×2 (11:17→18:23)
[2019-07-29] MEDS: tamsulosin 0.4 mg Capsule PO (11:17)
[2019-07-29] MEDS: predniSONE 20 mg Tablet 40 MG PO (11:17)
[2019-07-29] MEDS: enoxaparin 40 mg/0.4 mL Syringe SUBCUT (15:41)
[2019-07-29] MEDS: mirtazapine 30 mg Tablet PO (21:50)
[2019-07-30] VITALS (22 sets, daily range): BP systolic 112–162; BP diastolic 66–80; PULSE 85–111; RESP 18–32; TEMP 36.6–37.1; O2SAT 87–95
[2019-07-30] MEDS: ipratropium-albuterol 3 mL Neb INHALATION ×7 (00:07→23:49)
[2019-07-30 07:03] LABS: Anion Gap 14.7 (5-19); Blood Urea Nitrogen 17 mg/dL (8-23); Calcium 9.1 mg/dL (8.5-10.5); Carbon Dioxide 26 mmol/L (22-29); Chloride 108 mmol/L (98-107); Glucose 151 mg/dL (65-115); Osmolality Calculated 299 mOsm/kg (285-295); Potassium 3.7 mmol/L (3.5-5.1); Sodium 145 mmol/L (136-145)
[2019-07-30] MEDS: levofloxacin-dextrose 5 % 750 MG/150 ML PREMIX 150 MG IV (08:07)
[2019-07-30] MEDS: donepezil 5 MG Tablet 10 MG PO (08:08)
[2019-07-30] MEDS: memantine 5 mg tablet 10 MG PO ×2 (08:08→19:51)
[2019-07-30] MEDS: pantoprazole DR 40 mg Tablet PO (08:08)
[2019-07-30] MEDS: predniSONE 20 mg Tablet 40 MG PO (08:08)
[2019-07-30] MEDS: aspirin 81 mg Chew Tablet PO (08:08)
[2019-07-30] MEDS: tamsulosin 0.4 mg Capsule PO (08:08)
--- NOTE | 2019-07-30 11:07 | PC.CHAP ---
Pastoral Care Encounter/Spiritual Assessment Type of Contact [] Declined credit portfolio advisor visit [] Patient/Family/Request visit [] Outpatient visit [] Follow-up visit [] Physician referral [] Code/Alert [x] Routine visit [] Staff referral [] Actively dying [] Patient sleeping [] Family support [] [] Out of room [] Palliative care [] [] Receiving care in room [] Pre-surgical visit [] Trauma [] Long length of stay [] ICU visit [] Other: Relational/Emotional Strength [x] Patient feels connected with others/family/visitors/staff [] Distress [] Loneliness/isolation [] Abandonment Spirituality of Patient [x] Person of [place] [x] Attends Bahai of their [place] [] Believes in Prayer [] Reads Bible or Catholic materials [] There are Spiritual issues to be addressed Physical Biochemist Interventions [x] Prayer [x] Active listening [x] Non-anxious presence [] Spiritual/emotional support [] Crisis/trauma care [] Spiritual counseling [] Bereavement support [] Provided bereavement packet [] Provided Bible/devotional materials [] Provided toy/stuffed animal, coloring book to patient or family member [] Provided Communion [] Anointing/[place] [] Salvation [] Completed spiritual assessment [] Other: Impact on Illness or Injury [] Angry [] Fearful [] Anxious [] Often cries [] Exhaustion [] Unable to work [] Unable to attend nondenominational [] Unable to walk/stand [] Unable to read [] Unable to drive [] Unable to eat/drink [] Unable to sleep [] Unable to be with family [] Patient intubated [] Other: Summary patiem\nt having hard time thinking Time spent with patient 10 min
--- NOTE | 2019-07-30 11:15 | P.PN_ITS ---
Subjective Subjective: Interval history: Patient sitting up at the side of the bed at time of exam today. Reported the breathing is improved but he continues to have some shortness of breath and wheezing. Reports continued cough with sputum production. Vitals/I&O/Wt Last Vital Signs Temp 97.8 F 07/30/19 07:07 Pulse 85 07/30/19 08:09 Resp 22 H 07/30/19 08:09 BP 112/71 07/30/19 07:07 Pulse Ox 94 07/30/19 08:09 07/29/19 07/30/19 07/30/19 22:59 06:59 14:59 Intake Total 220 / 594 240 / 240 Output Total 300 / 300 500 / 800 Balance -80 / 294 -500 / -206 240 / 240 Weight last 48 hrs Weight 76.204 kg Weight 74.843 kg Physical Exam Const: COMMON NORMALS: alert GENERAL APPEARANCE: cooperative ORIENTATION/CONSCIOUSNESS: Yes awake, Yes oriented to person, Yes oriented to place and Yes oriented to time OTHER: Oriented to person and place HENMT: COMMON NORMALS: normocephalic and head/scalp atraumatic HEAD & SCALP: normocephalic and atraumatic Eye: COMMON NORMALS: PERRL PUPIL: Yes PERRL Neck/C-Spine: COMMON NORMALS: supple GENERAL: Yes normal visual inspection Resp: OTHER: Oxygen by nasal cannula in place, diminished breath sounds bilaterally with prolonged expiratory phase and expiratory wheezing bilaterally Cardio: COMMON NORMALS: no murmurs RATE: tachycardic GI: COMMON NORMALS: soft to palpation and non-tender INSPECTION: No abdominal distension AUSCULTATION: Yes normoactive bowel sounds PALPATION: Yes soft Extremity: COMMON NORMALS: no clubbing, cyanosis or edema and no calf tenderness Neuro: COMMON NORMALS: CN's II-XII intact bilaterally, moves all extremities and no focal motor deficits SENSORIUM/ORIENTATION: Yes alert, Yes oriented to person, Yes oriented to place and Yes oriented to time SPEECH: speech normal OTHER: Awake and alert, answering questions appropriately Psych: COMMON NORMALS: cooperative Skin: COMMON NORMALS: no rashes or lesions noted GENERAL SKIN EXAM: no rashes or lesions noted Data : 07/29/19 05:20 07/30/19 05:03 Micro: Microbiology 07/28/19 08:32 Blood Culture - Preliminary Blood NEGATIVE TO DATE 07/28/19 08:32 Blood Culture - Preliminary Blood NEGATIVE TO DATE A&P Assessment and plan (1) Sepsis: Resolved Status: Acute Code(s): A41.9 - Sepsis, unspecified organism (2) Pneumonia: Continue on Levaquin and prednisone. Patient remains on 2 L of oxygen by nasal cannula, will wean to room air as able Status: Acute Code(s): J18.9 - Pneumonia, unspecified organism (3) Dementia: At baseline mentation today Status: Acute Code(s): F03.90 - Unspecified dementia without behavioral disturbance Additional A&P Information Dehydration: Resolved COPD exacerbation: Respiratory therapy to assess and treat, oxygen per protocol, prednisone and Levaquin continued Reported prior history of hypertension: Blood pressures remain within normal limits at this time Continue to wean oxygen as tolerated, patient is not on any home oxygen. 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
--- NOTE | 2019-07-30 12:55 | PC.NURSE ---
Breathing treatment ordered; respiratory notified.
--- NOTE | 2019-07-30 14:37 | PC.SOCIAL ---
Patient signed for the MCR Recipient letter for the BPCI advanced and the original is in the chart. Information provided.
[2019-07-30] MEDS: enoxaparin 40 mg/0.4 mL Syringe SUBCUT (14:38)
[2019-07-30] MEDS: benzonatate 100 mg Capsule 200 MG PO (14:50)
--- NOTE | 2019-07-30 15:57 | PC.NURSE ---
patients oxygen was at 87 when this AREA FIELD WORKER went in to get vitals. This AREA FIELD WORKER called respitory and then put his nasel canula back on and waited until the pateients o2 got back up to 90
[2019-07-30] MEDS: mirtazapine 30 mg Tablet PO (20:21)
[2019-07-31] VITALS (15 sets, daily range): BP systolic 138–158; BP diastolic 78–88; PULSE 77–140; RESP 16–26; TEMP 36.4–37.2; O2SAT 91–95
[2019-07-31] MEDS: ipratropium-albuterol 3 mL Neb INHALATION ×6 (03:27→23:51)
[2019-07-31] MEDS: levofloxacin-dextrose 5 % 750 MG/150 ML PREMIX 150 MG IV (07:56)
[2019-07-31] MEDS: memantine 5 mg tablet 10 MG PO ×2 (08:03→17:39)
[2019-07-31] MEDS: aspirin 81 mg Chew Tablet PO (08:04)
[2019-07-31] MEDS: tamsulosin 0.4 mg Capsule PO (08:04)
[2019-07-31] MEDS: predniSONE 20 mg Tablet 40 MG PO (08:04)
[2019-07-31] MEDS: pantoprazole DR 40 mg Tablet PO (08:05)
[2019-07-31] MEDS: donepezil 5 MG Tablet 10 MG PO (08:08)
--- NOTE | 2019-07-31 10:37 | DCPLANNER ---
Pg 2 of IM updated and reviewed with pt x3 as he appeared to understand the message but would follow it with comments like I'll let you know after I ask the Dr. and I need to see the Dr. so I'll know . Tint Layer explains the opportunity and that we will assist with it IF needed. Tint Layer also leaves our number so that he can call us if he has any further questions.
--- NOTE | 2019-07-31 12:43 | P.PN_ITS ---
Subjective Subjective: Interval history: Patient and family reports that cough and dyspnea is improved since admission, however noted to be tachypneic at time of exam upon attempting complete a sentence. No ches pain. Improved symptomatically with iv solumedrol 80mg and duoneb. Medications: Reviewed: Yes Vitals/I&O/Wt Last Vital Signs Temp 97.6 F 07/31/19 11:17 Pulse 101 H 07/31/19 12:25 Resp 16 07/31/19 12:25 BP 158/86 07/31/19 11:17 Pulse Ox 92 07/31/19 12:25 07/30/19 07/31/19 07/31/19 22:59 06:59 14:59 Intake Total 240 / 870 360 / 360 Output Total 250 / 850 400 / 1250 Balance - -400 / -380 360 / 360 Weight last 48 hrs Weight 78.154 kg Weight 76.204 kg Physical Exam Narrative: EXAM NARRATIVE: GEN: Awake, alert and oriented, no acute distress CVS: S1S2 N RS: B/L diffuse wheezing + Abd: Soft, nt/nd , bs+ PNEUMATIC TESTER MECHANIC: no focal neuro deficits Data : 08/01/19 05:05 08/01/19 05:05 A&P Assessment and plan (1) Sepsis: Resolved Status: Acute Code(s): A41.9 - Sepsis, unspecified organism (2) Pneumonia: Continue on Levaquin and prednisone. Patient remains on 2 L of oxygen by nasal cannula, will wean to room air as able. recievd extra solumedrol this afternoon Status: Acute Code(s): J18.9 - Pneumonia, unspecified organism (3) Dementia: At baseline mentation today Status: Acute Code(s): F03.90 - Unspecified dementia without behavioral disturbance Additional A&P Information Dehydration: Resolved COPD exacerbation: Respiratory therapy to assess and treat, oxygen per protocol, prednisone and Levaquin continued Reported prior history of hypertension: Blood pressures remain within normal limits at this time Continue to wean oxygen as tolerated, patient is not on any home oxygen. May require home oxygen evaluation at time of discharge DVT prophylaxis: Lovenox Diet: Cardiac CODE STATUS: Full code Attestations Medical Necessity Statement*: optimization of respiratory status Coding Level of Care Code Acute Stain Applicator for [facility] Diagnoses Sepsis A41.9 Pneumonia J18.9 Dementia F03.90
[2019-07-31] MEDS: enoxaparin 40 mg/0.4 mL Syringe SUBCUT (13:11)
[2019-07-31] MEDS: mirtazapine 30 mg Tablet PO (21:08)
--- NOTE | 2019-07-31 22:46 | CTR_ITS ---
PROCEDURE INFORMATION: Exam: CT Chest Without Contrast Exam date and time: 07/31/2019 10:59 PM Age: 73 years old Clinical indication: Cough and shortness of breath; Patient HX: C/O SOB and cough - copd - pneumonia; Additional info: Copd/pna TECHNIQUE: Imaging protocol: Computed tomography of the chest without contrast. Sagittal and coronal reformatted images were created and reviewed. Total DLP: 702.76 mGy-cm Radiation optimization: All CT scans at this facility use at least one of these dose optimization techniques: automated exposure control; mA and/or kV adjustment per patient size (includes targeted exams where dose is matched to clinical indication); or iterative reconstruction. COMPARISON: CT Chest/Abdomen/Pelvis w IV* 01/01/2019 1:31 PM FINDINGS: Limitations: Evaluation of the mediastinum and vasculature is limited without intravenous contrast. Respiratory motion artifact on multiple images that can limit evaluation. Lungs: Debris layering in the trachea. This may represent bronchial secretions or aspirated contents. Tracheobronchial structures are patent. Stable severe centrilobular emphysematous changes in the lungs with a large bulla in the left upper lobe. Stable calcified granuloma in the right upper lobe. Interval development of patchy airspace disease in the posterior right upper lobe and mild reticulonodular interstitial thickening in the right middle lobe suspicious for pneumonia. Pleural space: No pleural effusion. No pneumothorax. Heart: Stable mild enlargement of the heart. Stable extensive atherosclerotic calcification in the coronary arteries. Mediastinum: The esophagus is unremarkable. No mediastinal hematoma. No pneumomediastinum. Aorta: Stable mild atherosclerotic calcifications in the visualized arteries. Other arteries: The pulmonary arteries are unremarkable. Other veins: The pulmonary veins are unremarkable. Lymph nodes: Stable partially calcified mediastinal nodes and calcified right hilar lymph nodes. Liver: Single calcified granuloma in the liver. Gallbladder and bile ducts: Stable findings consistent with a previous cholecystectomy. Pancreas: The visualized pancreas is unremarkable. No pancreatic mass. No pancreatic ductal dilatation. Spleen: The visualized spleen is unremarkable. Adrenals: Insert bilateral adrenal glands stable nonspecific inflammation around both visualized kidneys. Kidneys and ureters: Simple cysts in both right and left kidneys. 2 cysts in the right kidney, the larger measures 1.5 cm. Partially visualized left renal cyst measures 1.9 cm. Findings are stable. Bones/joints: Degenerative changes in the spine and shoulders. Soft tissues: Stable focal calcification of in the left ventricle, possibly within a papillary muscle. CT/CT chest wo con [id number] IMPRESSION: 1. Interval development of patchy airspace disease in the posterior right upper lobe and mild reticulonodular interstitial thickening in the right middle lobe suspicious for pneumonia. Recommend followup chest imaging in 4-6 weeks to insure resolution of these findings. 2. Debris layering in the trachea. This may represent bronchial secretions or aspirated contents. 3. Stable severe centrilobular emphysematous changes in the lungs with a large bulla in the left upper lobe. 4. Incidental/nonacute findings are listed in the report. Radiation Dose CTDIVOL = (mGy): DLP = 702.76 (mGy-cm)
--- NOTE | 2019-07-31 23:51 | ECG_ITS ---
Measurements Intervals [place] Rate: 127 P: WI: 0 QRS: 41 QRSD: 130 T: 93 QT: 312 QTc: 454 ATRIAL FIBRILLATION WITH RAPID VENTRICULAR RESPONSE WITH ABERRANT CONDUCTION OR VENTRICULAR PREMATURE COMPLEXES PROBABLE INFERIOR MYOCARDIAL INFARCTION [35 ms Q WAVE IN II/aVF], PROBABLY OLD Compared to ECG 07/28/2019 16:38:43 Aberrant conduction of supraventricular beat(s) now present Ventricular premature complex(es) now present Sinus rhythm no longer present Intraventricular conduction delay no longer present T-wave abnormality no longer present Possible ischemia no longer present Myocardial infarct finding still present Electronically Signed On 08-01-2019 9:23:31 CDT by Jose Naylor M.D. [id number]
[2019-08-01] VITALS (17 sets, daily range): BP systolic 128–170; BP diastolic 76–93; PULSE 82–117; RESP 16–30; TEMP 35.8–37; O2SAT 92–97; BMI 26.2
[2019-08-01] MEDS: metoprolol tartrate 1 mg/1 mL SDV 5 mL 5 MG IV (00:06)
[2019-08-01] MEDS: ipratropium-albuterol 3 mL Neb INHALATION ×4 (03:30→20:07)
[2019-08-01 03:44] LABS: ABG PCO2 47.1 mmHg (35-45); ABG PH Result 7.46 (7.35-7.45); Alveolar-Arterial Oxygen Gradi 145.4 mmHg (5-10); Arterial Blood Gas Hematocrit 47.8 % (42-52); Base Excess ABG 8.2 mmol/L (-2.0-2.0); Blood Gas Allen Test Pos; Blood Gas Sample Site Radial, left; Blood Gas Sample Type Arterial; Carboxyhemoglobin 0.5 %THgb (0.4-20.1); HCO3 ABG 33.4 mmol/L (22-26); Ionized Calcium Level - ABG 1.1 mmol/L (1.1-1.4); Methemoglobin 0.7 % (0.4-1.5); Oxygen Device NC; Oxygen Saturation ABG 90.1; PO2 ABG 46.6 mmHg (80.0-100.0); Potassium Level - ABG 3.2 mmol/L (3.5-5.0); Total Hemoglobin 15.6 g/dL (14-18)
[2019-08-01 06:03] LABS: Basophils % 0.1 %; Hematocrit 43.7 % (42.0-52.0); Hemoglobin 14.7 g/dL (11.7-16.6); Lymphocytes # 1.5 10^3/uL (0.8-4.8); Lymphocytes % 15.3 %; Mean Corpuscular HGB Conc 33.6 g/dL (30.0-36.0); Mean Corpuscular Hemoglobin 31.5 pg (28.0-34.0); Mean Corpuscular Volume 93.8 fL (80-94); Mean Platelet Volume 11.4 fL (7.4-10.4); Monocytes # 0.7 10^3/uL (0.2-0.9); Monocytes % 6.9 %; Neutrophils # 7.5 10^3/uL (1.8-7.7); Nucleated Red Blood Cells % 0 %; Platelet Count 204 10^3/cmm (130-400); Red Blood Count 4.66 10^6/uL (4.1-5.3); Red Cell Distribution Width 13.8 % (12.1-15.1)
[2019-08-01 06:23] LABS: Alanine Aminotransferase 45 U/L (0-41); Albumin Level 3.2 g/dL (3.5-5.2); Alkaline Phosphatase 63 IU/L (40-130); Anion Gap 11.3 (5-19); Aspartate Amino Transferase 40 U/L (0-40); Blood Urea Nitrogen 13 mg/dL (8-23); Calcium 8.6 mg/dL (8.5-10.5); Carbon Dioxide 35 mmol/L (22-29); Chloride 104 mmol/L (98-107); Glucose 109 mg/dL (65-115); Osmolality Calculated 301 mOsm/kg (285-295); Potassium 3.3 mmol/L (3.5-5.1); Sodium 147 mmol/L (136-145); Total Bilirubin 0.4 mg/dL (0.15-1.2); Total Protein 6.2 g/dL (6.6-8.7)
[2019-08-01 06:42] LABS: Slide Review Slide Review Perform
[2019-08-01] MEDS: levofloxacin-dextrose 5 % 750 MG/150 ML PREMIX 150 MG IV (08:35)
[2019-08-01] MEDS: memantine 5 mg tablet 10 MG PO ×2 (08:36→17:14)
[2019-08-01] MEDS: pantoprazole DR 40 mg Tablet PO (08:36)
[2019-08-01] MEDS: donepezil 5 MG Tablet 10 MG PO (08:36)
[2019-08-01] MEDS: tamsulosin 0.4 mg Capsule PO (08:36)
[2019-08-01] MEDS: aspirin 81 mg Chew Tablet PO (08:36)
[2019-08-01] MEDS: budesonide 0.5 mg/2 mL Neb INHALATION ×2 (09:19→20:07)
[2019-08-01] MEDS: enoxaparin 40 mg/0.4 mL Syringe SUBCUT (13:17)
--- NOTE | 2019-08-01 17:22 | PM.PN ---
Subjective Subjective: Interval history: Labs noted. No acute events overnight other than heart rate going up to 141 for which he needed IV Lopressor. On review of telemetry patient has had atrial fibrillation since yesterday and prior to that had intermittent A. fib. On examination patient is sitting comfortably in bed and states would like to go home tomorrow. He states his shortness of breath is improved but he continues to remain on 2 L nasal cannula even though at home he is not on any supplementation. Vitals/I&O/Wt Last Vital Signs Temp 97.8 F 08/01/19 16:00 Pulse 105 H 08/01/19 16:00 Resp 24 H 08/01/19 16:00 BP 170/76 08/01/19 16:00 Pulse Ox 96 08/01/19 16:00 08/01/19 08/01/19 08/01/19 06:59 14:59 22:59 Intake Total 120 / 1350 270 / 270 Output Total 200 / 200 Balance 120 / 750 70 / 70 Weight last 48 hrs Weight 78.154 kg Weight 78.154 kg Physical Exam Narrative: EXAM NARRATIVE: General: No acute distress, AO x3 HEENT: PERRLA, pupils bilaterally equal and reactive Chest: Normal vesicular breath sounds,b/l wheeze present, lower zone crepts present, equal good air entry bilaterally CVS: S1-S2 regular, no murmurs, no tachycardia, no gallops, no rubs Abdomen: Soft, nontender, no organomegaly, bowel sounds present Neuro: No focal deficits, no facial deformity, AO x3, power 5/5 in all limbs Data : 08/01/19 05:05 08/01/19 05:05 A&P Assessment and plan (1) Respiratory failure with hypoxia and hypercapnia: Status: Acute Code(s): J96.91 - Respiratory failure, unspecified with hypoxia; J96.92 - Respiratory failure, unspecified with hypercapnia (2) COPD (chronic obstructive pulmonary disease): Status: Acute Code(s): J44.9 - Chronic obstructive pulmonary disease, unspecified (3) History of hypertension: Status: Acute Code(s): Z86.79 - Personal history of other diseases of the circulatory system (4) Paroxysmal A-fib: Status: Acute Code(s): I48.0 - Paroxysmal atrial fibrillation Additional A&P Information Respiratory failure: Hypoxia and hypercapnia: Most likely exacerbation of COPD along with CHF. Continue with duo nebs every 6 hours, budesonide twice daily. Will wean steroids to 40 every 8 today. Oxygen supplementation keeping saturation over 90%. Atrial fibrillation: Paroxysmal: Right now patient is with controlled ventricular response. Start patient on Cardizem 30 mg every 6 hourly. We will discuss with family regarding possible need of anticoagulation given the fact that patient has been having recurrent atrial fibrillation since admission. Will most likely need Eliquis. For now we will give Lovenox full dose 1 mg/kg body weight as per kidney functions. Patient's proBNP on admission was 1300. Check repeat proBNP. Check echocardiogram. Most likely diastolic dysfunction. Give IV Lasix 20 mg stat as patient is na?ve to diuretics. Elevated BP: More than 140 mmhg since admission. Started on cardizem today, should help with BP. Dementia: Continue chronic home medications. Full code. Protonix for PUD prophylaxis Full dose Lovenox. Cardiac diet Attestations Medical Necessity Statement*: hypoxic respiratory failure. 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
[2019-08-01] MEDS: FUROsemide 10 mg/mL SDV 2mL 20 MG IVP (17:37)
[2019-08-01] MEDS: dilTIAZem 30 mg Tablet PO ×2 (17:37→22:40)
[2019-08-01 18:00] LABS: NT Pro B Type Natriuretic Pept 5129 pg/mL (0-125)
[2019-08-01] MEDS: enoxaparin 100 mg/mL Syringe 80 MG SUBCUT (18:55)
[2019-08-01] MEDS: mirtazapine 30 mg Tablet PO (22:40)
[2019-08-02] VITALS (13 sets, daily range): BP systolic 121–151; BP diastolic 68–83; PULSE 79–106; RESP 16–20; TEMP 36.4–37; O2SAT 92–96; BMI 24.2
[2019-08-02 05:01] LABS: Basophils % 0.2 %; Hematocrit 45.9 % (42.0-52.0); Hemoglobin 15.2 g/dL (11.7-16.6); Lymphocytes # 1.1 10^3/uL (0.8-4.8); Lymphocytes % 11.7 %; Mean Corpuscular HGB Conc 33.1 g/dL (30.0-36.0); Mean Corpuscular Hemoglobin 30.4 pg (28.0-34.0); Mean Corpuscular Volume 91.8 fL (80-94); Mean Platelet Volume 11.3 fL (7.4-10.4); Monocytes # 0.3 10^3/uL (0.2-0.9); Monocytes % 3.6 %; Neutrophils # 7.3 10^3/uL (1.8-7.7); Neutrophils % 78.6 %; Nucleated Red Blood Cells % 0 %; Platelet Count 224 10^3/cmm (130-400); Red Cell Distribution Width 13.3 % (12.1-15.1); White Blood Count 9.3 10^3/uL (4.0-10.0)
[2019-08-02] MEDS: dilTIAZem 30 mg Tablet PO ×4 (05:24→23:09)
[2019-08-02] MEDS: enoxaparin 100 mg/mL Syringe 80 MG SUBCUT ×2 (05:24→17:03)
[2019-08-02 05:27] LABS: Alanine Aminotransferase 65 U/L (0-41); Albumin Level 3.2 g/dL (3.5-5.2); Alkaline Phosphatase 64 IU/L (40-130); Anion Gap 6.6 (5-19); Aspartate Amino Transferase 42 U/L (0-40); Blood Urea Nitrogen 12 mg/dL (8-23); Calcium 8.8 mg/dL (8.5-10.5); Chloride 99 mmol/L (98-107); Globulin 3.3 g/dL (1.3-4.6); Glucose 161 mg/dL (65-115); Osmolality Calculated 296 mOsm/kg (285-295); Potassium 3.6 mmol/L (3.5-5.1); Sodium 143 mmol/L (136-145); Total Bilirubin 0.4 mg/dL (0.15-1.2); Total Protein 6.5 g/dL (6.6-8.7)
[2019-08-02 05:38] LABS: Slide Review Slide Review Perform
[2019-08-02 05:49] LABS: Carbon Dioxide 41 mmol/L (22-29)
[2019-08-02] MEDS: budesonide 0.5 mg/2 mL Neb INHALATION ×2 (07:42→19:49)
[2019-08-02] MEDS: ipratropium-albuterol 3 mL Neb INHALATION ×4 (07:42→19:48)
[2019-08-02] MEDS: aspirin 81 mg Chew Tablet PO (08:09)
[2019-08-02] MEDS: donepezil 5 MG Tablet 10 MG PO (08:09)
[2019-08-02] MEDS: tamsulosin 0.4 mg Capsule PO (08:09)
[2019-08-02] MEDS: pantoprazole DR 40 mg Tablet PO (08:09)
[2019-08-02] MEDS: memantine 5 mg tablet 10 MG PO ×2 (08:09→17:03)
[2019-08-02] MEDS: levofloxacin-dextrose 5 % 750 MG/150 ML PREMIX 150 MG IV (09:32)
--- NOTE | 2019-08-02 11:48 | DCPLANNER ---
Pg 2 of IM updated and reviewed with pt. No questions, copy provided.
[2019-08-02] MEDS: FUROsemide 10 mg/mL SDV 4mL 40 MG IVP (12:12)
--- NOTE | 2019-08-02 16:50 | PM.PN ---
Subjective Subjective: Interval history: Labs noted. In last 24 hours patient has been intermittently in A. fib but rate controlled. On examination he is looking a lot more comfortable. Lying comfortably in bed. States his shortness of breath and cough is improved. States he would want like to go home. Medications: Reviewed: Yes Vitals/I&O/Wt Last Vital Signs Temp 98.6 F 08/02/19 15:31 Pulse 94 08/02/19 15:31 Resp 18 08/02/19 15:31 BP 121/68 08/02/19 15:31 Pulse Ox 94 08/02/19 15:31 08/02/19 08/02/19 08/02/19 06:59 14:59 22:59 Intake Total 100 / 810 670 / 670 300 / 970 Output Total 400 / 1480 500 / 500 Balance -300 / -670 670 / 670 -200 / 470 Weight last 48 hrs Weight 72.348 kg Weight 71.781 kg Weight 78.154 kg Physical Exam Narrative: EXAM NARRATIVE: General: No acute distress, AO x3 HEENT: PERRLA, pupils bilaterally equal and reactive Chest: Normal vesicular breath sounds, no more lower zone fine crackles present, bilateral middle and upper zone expiratory wheeze present, equal good air entry bilaterally CVS: S1-S2 regular, no murmurs, no tachycardia, no gallops, no rubs Abdomen: Soft, nontender, no organomegaly, bowel sounds present Neuro: No focal deficits, no facial deformity, AO x3, power 5/5 in all limbs Data : 08/02/19 04:40 08/02/19 04:40 Micro: Microbiology 07/28/19 08:32 Blood Culture - Final Blood NO GROWTH AFTER 5 DAYS 07/28/19 08:32 Blood Culture - Final Blood NO GROWTH AFTER 5 DAYS A&P Assessment and plan (1) Respiratory failure with hypoxia and hypercapnia: Status: Acute Code(s): J96.91 - Respiratory failure, unspecified with hypoxia; J96.92 - Respiratory failure, unspecified with hypercapnia (2) COPD (chronic obstructive pulmonary disease): Status: Acute Code(s): J44.9 - Chronic obstructive pulmonary disease, unspecified (3) History of hypertension: Status: Acute Code(s): Z86.79 - Personal history of other diseases of the circulatory system (4) Paroxysmal A-fib: Status: Acute Code(s): I48.0 - Paroxysmal atrial fibrillation Additional A&P Information Respiratory failure: Hypoxia and hypercapnia: Most likely exacerbation of COPD along with CHF. Continue with duo nebs every 6 hours, budesonide twice daily. Will wean steroids to 40 every 12 hours today Oxygen supplementation keeping saturation over 90%. Atrial fibrillation: Paroxysmal: Right now patient is with controlled ventricular response. Start patient on Cardizem 30 mg every 6 hourly. Discussed with the patient regarding full dose anticoagulation given the fact that he has been in atrial fibrillation. Patient is agreeable for starting on anticoagulation. Discussed with him regarding potential chances of stroke given atrial fibrillation and possible side effects of hemorrhage on anticoagulation. Patient states he understands and would like to start on anticoagulation for now. proBNP checked yesterday more than 5000 which is higher than his admission. Check echocardiogram. Most likely diastolic dysfunction. Repeat Lasix 40 mg IV today. Last 24 hours patient is -600 cc. Elevated BP: More than 140 mmhg since admission. Better controlled Started on cardizem today, should help with BP. Dementia: Continue chronic home medications. Full code. Protonix for PUD prophylaxis Full dose Lovenox. 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
--- NOTE | 2019-08-02 17:21 | USCV_ITS ---
Isaac Simpson Age: 73 Gender: M : 1945 Exam Date: 08/02/2019 14:50 Ordering Phys: Rasta Conner MD Technologist: Landon King [place] [facility] [place]: AFIB CHF BP: 150 / 82 HR: 79 Rhythm: Sinus Technical Quality: Fair, Technically difficult study MEASUREMENTS (Male / Female) Normal Values 2D ECHO LV Diastolic Diameter PLAX 4.6 cm 4.2 - 5.9 / 3.9 - 5.3 cm LV Systolic Diameter PLAX 4.1 cm IVS Diastolic Thickness 1.8 cm 0.6 - 1.0 / 0.6 - 0.9 cm IVS Systolic Thickness 2.1 cm LVPW Diastolic Thickness 1.6 cm 0.6 - 1.0 / 0.6 - 0.9 cm LVPW Systolic Thickness 1.8 cm LVOT Diameter 2.1 cm LV Ejection Fraction 2D Teich 23.8 % LA Diameter 4.4 cm M-MODE LV Diastolic Diameter MM 5.8 cm 4.2 - 5.9 / 3.9 - 5.3 cm LV Systolic Diameter MM 4.2 cm LV Ejection Fraction MM Teich 53.8 % IVS Diastolic Thickness MM 1.2 cm 0.6 - 1.0 / 0.6 - 0.9 cm IVS Systolic Thickness MM 1.8 cm LVPW Diastolic Thickness MM 1.5 cm 0.6 - 1.0 / 0.6 - 0.9 cm LVPW Systolic Thickness MM 2.1 cm RV Diastolic Diameter MM 2.6 cm Aortic Annulus Diameter 4.2 cm LA Ao Ratio MM 1.1 DOPPLER AV Peak Velocity 111.0 cm/s MV Area PHT 5.0 cm squared Mitral E to A Ratio 1.9 MV E' Velocity 75.0 cm/s FINDINGS Left Ventricle Probably normal left ventricle size. Thickening of left ventricular wall. Moderately to severely decreased left ventricular systolic function with left ventricular ejection fraction estimated at 30%. Probably global hypokinesis. However, given poor ultrasonic windows adequate assessment of regional wall motion abnormality could not be done. Right Ventricle Normal right ventricular size and systolic function. Right Atrium Right atrium not well visualized. Right atrial pressure estimated at 3 mmHg. Left Atrium Left atrium not well visualized. Mitral Valve Thickened mitral valve. Aortic Valve Mildly thickened and calcified trileaflet aortic valve. Tricuspid Valve Structurally normal tricuspid valve. No significant tricuspid valve regurgitation. Pulmonic Valve Pulmonic valve not well visualized. Pericardium No pericardial effusion. Aorta Aorta not well visualized. CONCLUSIONS 1. This is a technically very difficult study with no apical or parasternal windows. 2. Probably normal left ventricle size. Thickening of left ventricular wall. Moderately to severely decreased left ventricular systolic function with left ventricular ejection fraction estimated at 30%. Probably global hypokinesis. 3. Normal right ventricular size and systolic function. 4. No prior similar studies to compare. Sylvia Willett MD (Electronically Signed) Final Date: 03 August 2019 11:14 S
[2019-08-02] MEDS: mirtazapine 30 mg Tablet PO (22:14)
[2019-08-03] VITALS (13 sets, daily range): BP systolic 121–169; BP diastolic 62–84; PULSE 72–103; RESP 17–18; TEMP 36.3–36.5; O2SAT 90–94
[2019-08-03] MEDS: ipratropium-albuterol 3 mL Neb INHALATION ×2 (00:03→08:30)
[2019-08-03 05:36] LABS: Basophils % 0.3 %; Hematocrit 45.6 % (42.0-52.0); Hemoglobin 15.5 g/dL (11.7-16.6); Lymphocytes # 1.2 10^3/uL (0.8-4.8); Lymphocytes % 9.5 %; Mean Corpuscular Hemoglobin 31.1 pg (28.0-34.0); Mean Corpuscular Volume 91.4 fL (80-94); Mean Platelet Volume 11.2 fL (7.4-10.4); Monocytes # 0.6 10^3/uL (0.2-0.9); Monocytes % 5.2 %; Neutrophils # 9.8 10^3/uL (1.8-7.7); Neutrophils % 79.3 %; Nucleated Red Blood Cells % 0 %; Platelet Count 249 10^3/cmm (130-400); Red Blood Count 4.99 10^6/uL (4.1-5.3); Red Cell Distribution Width 13.5 % (12.1-15.1); White Blood Count 12.4 10^3/uL (4.0-10.0)
[2019-08-03 05:56] LABS: Alanine Aminotransferase 60 U/L (0-41); Albumin Level 3.2 g/dL (3.5-5.2); Alkaline Phosphatase 60 IU/L (40-130); Anion Gap 11.2 (5-19); Aspartate Amino Transferase 25 U/L (0-40); Blood Urea Nitrogen 22 mg/dL (8-23); Calcium 8.8 mg/dL (8.5-10.5); Carbon Dioxide 36 mmol/L (22-29); Chloride 95 mmol/L (98-107); Globulin 2.5 g/dL (1.3-4.6); Glucose 146 mg/dL (65-115); Osmolality Calculated 287 mOsm/kg (285-295); Potassium 3.2 mmol/L (3.5-5.1); Sodium 139 mmol/L (136-145); Total Bilirubin 0.4 mg/dL (0.15-1.2); Total Protein 5.7 g/dL (6.6-8.7)
[2019-08-03] MEDS: enoxaparin 100 mg/mL Syringe 80 MG SUBCUT (06:31)
[2019-08-03] MEDS: dilTIAZem 30 mg Tablet PO ×2 (06:31→11:37)
[2019-08-03 06:40] LABS: Slide Review Slide Review Perform
[2019-08-03] MEDS: budesonide 0.5 mg/2 mL Neb INHALATION (08:42)
[2019-08-03] MEDS: levofloxacin-dextrose 5 % 750 MG/150 ML PREMIX 150 MG IV (09:08)
[2019-08-03] MEDS: donepezil 5 MG Tablet 10 MG PO (09:09)
[2019-08-03] MEDS: aspirin 81 mg Chew Tablet PO (09:09)
[2019-08-03] MEDS: tamsulosin 0.4 mg Capsule PO (09:09)
[2019-08-03] MEDS: memantine 5 mg tablet 10 MG PO (09:09)
[2019-08-03] MEDS: pantoprazole DR 40 mg Tablet PO (09:10)
[2019-08-03] MEDS: lisinopril 10 mg Tablet PO (09:10)
[2019-08-03] MEDS: FUROsemide 20 mg Tablet PO (11:37)
--- NOTE | 2019-08-03 11:40 | P.DS_ITS ---
Discharge Providers Date of Admission: 07/28/19 11:16 Date of Discharge: August 03, 2019 Attending Provider at Admission: Shanti Rosas DO Attending Provider at Discharge: Rasta Conner MD Diagnoses at Discharge Discharge Diagnosis (1) Respiratory failure with hypoxia and hypercapnia: Status: Acute (2) COPD (chronic obstructive pulmonary disease): Status: Acute (3) History of hypertension: Status: Acute (4) Paroxysmal A-fib: Status: Acute (5) Congestive heart failure (CHF): Status: Acute Reason for Visit Reason for Visit: Reason For Visit: PNEUMONIA Hospital Course Discharge Summary: Isaac Simpson is a 73 year old male with a past medical history of chronic dementia, COPD, hypertension and hyperlipidemia that pre sented to the emergency department on July 27 for shortness of breath at first he symptoms were thought to be because of COPD exacerbation so was treated with nebulizations and IV steroids which were being weaned gradually. Patient was placed on telemetry. His telemetry showed that patient was having recurrent episodes of atrial fibrillation with rapid ventricular response for which she was started on Cardizem orally. Patient responded well to the treatment and his heart rate was under control for more than 48 hours on the current medication. proBNP was done which was elevated more more than 5000 and he was treated with IV diuretics. Patient responded well to the treatment and after started of IV diuresis patient started feeling a lot better. His echocardiogram revealed that he has global LV hypokinesia with an EF of around 30%. Anticoagulation was discussed with the patient and family regarding benefits and possible side effects of the medication. Both family and patient verbalized understanding and agreed for patient to be started on anticoagulation for now. Patient carries a diagnosis of hypertension as an outpatient but his home medications did not contain any antihypertensives. During hospitalization patient was started on DAVID inhibitor's for possible remodeling. He responded well to the treatment and his kidney functions remained stable. He is been discharged in hemodynamically stable condition to follow-up with cardiology as an outpatient in 2 weeks for further work-up. Home O2 evaluation has been done. On discharge patient was in sinus rhythm. Physical Exam Narrative: EXAM NARRATIVE: General: No acute distress, AO x3 HEENT: PERRLA, pupils bilaterally equal and reactive Chest: Normal vesicular breath sounds, no more lower zone fine crackles present, bilateral middle and upper zone expiratory wheeze present, equal good air entry bilaterally CVS: S1-S2 regular, no murmurs, no tachycardia, no gallops, no rubs Abdomen: Soft, nontender, no organomegaly, bowel sounds present Neuro: No focal deficits, no facial deformity, AO x3, power 5/5 in all limbs Discharge Data Data Completed and Pending: Completed Studies During Hospitalization Category Date Time Status CT chest wo con 7 1250 Urgent Cat Scan 07/31/19 22:46 Completed XR chest 1V brian ble [id number] Urgent Exams 07/28/19 08:01 Completed CV echo complete* [id number] Routine Ultrasound 08/02/19 17:21 Completed Pending at discharge Category Date Time Status Sputum Culture an d Gram Stain Stat Lab 07/28/19 11:33 Uncollected Labs from last 24 hours 08/03/19 08/03/19 04:33 04:33 WBC 12.4 H RBC 4.99 Hgb 15.5 Hct 45.6 MCV 91.4 MCH 31.1 MCHC 34.0 RDW 13.5 Plt Count 249 MPV 11.2 H Neut % (Auto) 79.3 Lymph % (Auto) 9.5 [place] % (Auto) 5.2 Eos % (Auto) 0.0 Baso % (Auto) 0.3 Neut # (Auto) 9.8 H Lymph # (Auto) 1.2 [place] # (Auto) 0.6 Eos # (Auto) 0.0 Baso # (Auto) 0.0 Nucleated RBC % (a uto) 0 Nucleated RBCs # 0.0 Sodium 139 Potassium 3.2 L Chloride 95 L Carbon Dioxide 36 H Anion Gap 11.2 BUN 22 Creatinine 1.0 Glucose 146 H Calculated Osmolal ity 287 Calcium 8.8 Total Bilirubin 0.4 AST 25 ALT 60 H Alkaline Phosphata se 60 Total Protein 5.7 L Albumin 3.2 L Globulin 2.5 Vitals: Last Vital Signs Temp 976 F H 08/03/19 08:00 Pulse 74 08/03/19 08:45 Resp 18 08/03/19 08:45 BP 147/62 08/03/19 08:00 Pulse Ox 94 08/03/19 08:45 Discharge Plan Discharge Patient Disposition: Home Health Service Condition: Stable Prescriptions: New lisinopril 10 mg Tablet 10 mg PO DAILY Qty: 30 RF: 0 Eliquis 5 mg tablet 5 mg PO Q12H Qty: 60 RF: 0 benzonatate 100 mg Capsule 200 mg PO TID PRN (Reason: Cough) Qty: 10 RF: 0 furosemide 20 mg Tablet 20 mg PO DAILY@0800 Qty: 30 RF: 0 diltiazem HCl [Cardizem CD] 120 mg capsule,extended release 24hr 120 mg PO Q24H Qty: 30 RF: 0 methylprednisolone [Medrol (Jarek)] 4 mg tablets,dose pack See Rx Instructions .ROUTE .COMPLEX Qty: 21 RF: 0 Continued donepezil 10 mg tablet 10 mg PO DAILY RF: 0 tamsulosin 0.4 mg capsule 0.4 mg PO DAILY RF: 0 pantoprazole 40 mg tablet,delayed release (DR/EC) 40 mg PO DAILY RF: 0 mirtazapine 30 mg tablet 30 mg PO BEDTIME RF: 0 memantine 5 mg tablet 10 mg PO BID RF: 0 aspirin 81 mg Tablet,Chewable 81 mg PO DAILY RF: 0 Discharge Orders: Discharge Order (Routine); Ordered 08/03/19 Ordered By: Rasta Conner Referrals: [facility] [place] [facility] ([facility]) [Outside] Quintin Montes MD [Family Provider] - 08/23/19 1:15 pm Sylvia Willett MD [Physician] - 08/17/19 1:30 pm (Atrial fibrillation, severe LV dysfunction on echocardiogram with global LV hypokinesia) Discharge Diet: Cardiac Discharge Activity: Resume usual activity Activity Restrictions/Additional Instructions: Follow-up with cardiology next 2 weeks for further work-up of global LV hypokinesia most likely because of atrial fibrillation. Anticoagulation with Eliquis has been started. Patient has been counseled regarding regarding precautions. New medication lisinopril has been started. Patient is advised to repeat basic metabolic panel in 1 month. Please finish the Medrol pack as directed. Discharge Attestations Time Spent in Discharge Care*: greater than 30 min Specific Discharge Activities: Specific discharge activities: educating and/or supporting family/caregiver, discussing with human services case manager/social workers/dc planners, documenting/other paperwork and evaluating patient/reviewing data Status at Discharge: Cognitive status at discharge: cognitively intact , Behavioral status at discharge: cooperative , Functional status at discharge: independent ambulation Overall status at discharge: patient is back to baseline Quality Metrics Clinical Quality Measures During this hospital stay, did patient experience: None Coding Level of Care Code 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
--- NOTE | 2019-08-03 12:14 | PC.RESP ---
Patient given Pulmonary Rehab/Smoking Cessation information.
== END 2019-08-03 13:15 | disposition home health service (06) | DRG 871 ==
LOC: ER 08:53 → ICU 12:49 → MEDSURG 13:35
PROVIDERS: Nurse Practitioner Family; Student in an Organized Health Care Education/Training Program; Admitting Provider Family Medicine; Emergency Provider Family Medicine; Family Provider Family Medicine; Visit Provider Student in an Organized Health Care Education/Training Program
DX: A41.9 Sepsis, unspecified organism (principal); J18.9 Pneumonia, unspecified organism; J96.02 Acute respiratory failure with hypercapnia; J96.01 Acute respiratory failure with hypoxia; J44.0 Chronic obstructive pulmonary disease with (acute) lower respiratory infection; J44.1 Chronic obstructive pulmonary disease with (acute) exacerbation; F03.90 Unspecified dementia, unspecified severity, without behavioral disturbance, psychotic disturbance, mood disturbance, and anxiety; I48.0 Paroxysmal atrial fibrillation; I11.0 Hypertensive heart disease with heart failure; E78.5 Hyperlipidemia, unspecified; Z79.82 Long term (current) use of aspirin; E86.0 Dehydration; K21.9 Gastro-esophageal reflux disease without esophagitis; I50.9 Heart failure, unspecified; F17.210 Nicotine dependence, cigarettes, uncomplicated
CPT/HCPCS: 12345; 36415; 36600; 71045; 71250; 80048; 80051; 80053; 82810; 83605; 83735; 83880; 83986; 84484; 85025; 87040; 87804; 93005; 93306; 94640; 94660; 96372; 96374; 96375; 97110; 97116; 97161; 97530; 99283; J1650; J1940; J1956; J2543; J2920; J2930; J3490; J7030; J7050; J7512; J7626

== ENCOUNTER 2019-09-14 13:32 | Emergency (ER) | payer MEDICARE, OTHER, SELFPAY ==
[2019-09-14 13:33] VITALS: BMI 25.8
[2019-09-14 13:40] VITALS: BP 147/85; PULSE 105; RESP 34; TEMP 36.6; O2SAT 94
--- NOTE | 2019-09-14 13:46 | ED_ITS ---
HPI - Chest Pain General: Chief Complaint: Chest Pain Stated Complaint: CHEST PAIN Time Seen by Provider: 09/14/19 13:37 Source: patient and EMS Mode of arrival: EMS Limitations: no limitations History of Present Illness: HPI narrative: 73-year-old male states he had chest pain roughly 1 hour ago that resolved spontaneously. Patient states his pain was a 3 out of 10 and had some slight dyspnea. Denies any worsening or improving factors. Patient was given aspirin in route and is now pain-free. MD complaint: chest pain Onset (ago): hour(s) Timing of current episode: constant Pain location: substernal Severity: mild Relieving factors: nothing Exacerbating factors: nothing Associated symptoms: Deny abdominal pain, dyspnea, fever(s), nausea or vomiting Review of Systems Const: Denies: fever, chills, body aches or change in appetite Eyes: Denies: blurry vision or eye discomfort ENMT: Denies: throat pain or dental pain Card: Reports: chest pain Resp: Denies: shortness of breath GI: Denies: abdominal pain, nausea, vomiting or diarrhea : Denies: painful urination Musc: Denies: neck pain or back pain Skin/Breast: Denies: rash Neuro: Denies: headache Psych: Denies: depression Cornell/Lymph: Denies: easy bruising All/Imm: Denies: hives PFSH ED PFSH: Medical History COPD (chronic obstructive pulmonary disease) Dementia GERD (gastroesophageal reflux disease) History of hypertension Hyperlipidemia Surgical History History of hernia surgery Family History Father CAD (coronary artery disease) Social History Smoking and tobacco status: former smoker Alcohol intake: never Physical Exam Const: COMMON NORMALS: no apparent distress, oriented x3 and healthy appearing HENMT: COMMON NORMALS: normocephalic and head/scalp atraumatic HEAD & SCALP: normocephalic and atraumatic Eye: COMMON NORMALS: PERRL and EOMs intact bilaterally PUPIL: Yes PERRL Neck/C-Spine: COMMON NORMALS: full ROM and supple Chest: COMMONS NORMALS: inspection of chest normal and palpation of chest normal Resp: COMMON NORMALS: normal respiratory effort, no retractions, no use of accessory muscles and clear to auscultation bilaterally AUSCULTATION: clear to auscultation bilaterally Cardio: COMMON NORMALS: regular rate, regular rhythm and no murmurs RATE: regular rate RHYTHM: regular rhythm GI: COMMON NORMALS: normal to inspection, nondistended, normoactive bowel sounds, soft to palpation, non-tender and no masses PALPATION: Yes soft Extremity: COMMON NORMALS: normal to inspection and full ROM Neuro: COMMON NORMALS: oriented x3, moves all extremities and no focal motor deficits Psych: COMMON NORMALS: mental status grossly normal, thought process normal and cooperative THOUGHT PROCESS: normal thought process Skin: COMMON NORMALS: no rashes or lesions noted and no wounds GENERAL SKIN EXAM: no rashes or lesions noted Course Vital Signs: Vital signs: Vital Signs Temperature 97.9 F 09/14/19 13:40 Pulse Rate 91 09/14/19 16:17 Respiratory Rate 20 H 09/14/19 16:17 Blood Pressure 91/61 09/14/19 16:17 Pulse Oximetry 92 09/14/19 16:17 MDM - Chest Pain MDM Narrative: Medical decision making narrative: pt presents here with chest pain that is atypical in nature. pt troponin shows no change. his ekg shows no change. Pt is stable for discharge and is to return if worsening. Lab Data: Labs: Lab Results 09/14/19 09/14/19 09/14/19 Range/Units 13:15 13:15 13:15 WBC 8.4 (4.0-10.0) 10^3/ uL RBC 5.02 (4.1-5.3) 10^6/u L Hgb 15.5 (11.7-16.6) g/dL Hct 47.7 (42.0-52.0) % MCV 95.0 H (80-94) fL MCH 30.9 (28.0-34.0) pg MCHC 32.5 (30.0-36.0) g/dL RDW 13.7 (12.1-15.1) % Plt Count 243 (130-400) 10^3/c mm MPV 11.4 H (7.4-10.4) fL Neut % (Auto) 59.6 % Lymph % (Auto) 30.9 % [place] % (Auto) 6.3 % Eos % (Auto) 1.6 % Baso % (Auto) 1.0 % Neut # (Auto) 5.0 (1.8-7.7) 10^3/u L Lymph # (Auto) 2.6 (0.8-4.8) 10^3/u L [place] # (Auto) 0.5 (0.2-0.9) 10^3/u L Eos # (Auto) 0.1 (0.0-0.8) 10^3/u L Baso # (Auto) 0.1 (0.0-0.1) 10^3/u L Nucleated RBC % (a uto) 0 % Nucleated RBCs # 0.0 /100WBC PT 14.50 H (10.5-13.3) SECO NDS INR 1.12 (0.8-1.2) Sodium 140 (136-145) mmol/L Potassium 4.3 (3.5-5.1) mmol/L Chloride 99 (98-107) mmol/L Carbon Dioxide 27 (22-29) mmol/L Anion Gap 18.3 (5-19) BUN 12 (8-23) mg/dL Creatinine 1.4 H (0.7-1.2) mg/dL Glucose 136 H (65-115) mg/dL Calculated Osmolal ity 288 (285-295) mOsm/k g Calcium 9.8 (8.5-10.5) mg/dL Total Bilirubin 0.5 (0.15-1.2) mg/dL AST 26 (0-40) U/L ALT 26 (0-41) U/L Alkaline Phosphata se 112 (40-130) IU/L Troponin T Baselin e (0-15) ng/mL Troponin T 120 Min [place] (0-15) ng/mL Delta Troponin T (0-10) ABS# Total Protein 7.6 (6.6-8.7) g/dL Albumin 4.2 (3.5-5.2) g/dL Globulin 3.4 (1.3-4.6) g/dL 09/14/19 09/14/19 Range/Units 13:15 14:56 WBC (4.0-10.0) 10^3/ uL RBC (4.1-5.3) 10^6/u L Hgb (11.7-16.6) g/dL Hct (42.0-52.0) % MCV (80-94) fL MCH (28.0-34.0) pg MCHC (30.0-36.0) g/dL RDW (12.1-15.1) % Plt Count (130-400) 10^3/c mm MPV (7.4-10.4) fL Neut % (Auto) % Lymph % (Auto) % [place] % (Auto) % Eos % (Auto) % Baso % (Auto) % Neut # (Auto) (1.8-7.7) 10^3/u L Lymph # (Auto) (0.8-4.8) 10^3/u L [place] # (Auto) (0.2-0.9) 10^3/u L Eos # (Auto) (0.0-0.8) 10^3/u L Baso # (Auto) (0.0-0.1) 10^3/u L Nucleated RBC % (a uto) % Nucleated RBCs # /100WBC PT (10.5-13.3) SECO NDS INR (0.8-1.2) Sodium (136-145) mmol/L Potassium (3.5-5.1) mmol/L Chloride (98-107) mmol/L Carbon Dioxide (22-29) mmol/L Anion Gap (5-19) BUN (8-23) mg/dL Creatinine (0.7-1.2) mg/dL Glucose (65-115) mg/dL Calculated Osmolal ity (285-295) mOsm/k g Calcium (8.5-10.5) mg/dL Total Bilirubin (0.15-1.2) mg/dL AST (0-40) U/L ALT (0-41) U/L Alkaline Phosphata se (40-130) IU/L Troponin T Baselin e 21 H (0-15) ng/mL Troponin T 120 Min [place] 18.56 H (0-15) ng/mL Delta Troponin T -2.44 L (0-10) ABS# Total Protein (6.6-8.7) g/dL Albumin (3.5-5.2) g/dL Globulin (1.3-4.6) g/dL Imaging Data^: CXR: Attestation: I personally reviewed and interpreted this imaging study as follows: Radiologist's impression: [address] [place] [address] XRay Report Signed Patient: Isaac Simpson Unit #: [id number] : 1945 Age/Sex: 73 / M ADM Date: 09/14/19 Loc: ER Room/Bed: Attending Dr: Ordering Provider/Ordering MD: Angy Longoria MD Date of Service: 09/14/19 Procedure(s): XR chest 1V portable [id number] Accession Number(s): [id number] Report Number: [id number] WS: [id number] PORTABLE CHEST HISTORY: cp COMPARISON: 07/28/2019 Hyperinflated lungs. Large bulla in the LEFT upper lobe. Overall much improved aeration as compared to 07/28/2019. No pneumonia. Normal vasculature. No pleural effusion or pneumothorax. Cardiac size: Normal. Mediastinum/Aorta: Mild atherosclerosis aorta. No osseous abnormality seen. XR/XR chest 1V portable [id number] IMPRESSION: 1. Bullous emphysema. 2. Resolved pneumonia since 07/28/2019. EKG Data^: EKG 1: Attestation: I personally reviewed and interpreted this EKG as follows: EKG interpretation date: 09/14/19 EKG interpretation time: 13:45 Interpretation: nsr hr [address] or t wave abnormalities qrs 136 qtc 412 EKG 2: Attestation: I personally reviewed and interpreted this EKG as follows: EKG interpretation date: 09/14/19 EKG interpretation time: 15:48 Interpretation: nsr hr [address] or t wave abnormalities qrs 134 qtc 434 Discharge Plan Discharge Patient Disposition: Home, Self-Care Clinical Impression: Chest pain Qualifiers: Chest pain type: unspecified Qualified Code(s): R07.9 - Chest pain, unspecified Condition: Stable Prescriptions: No Action furosemide 20 mg tablet 20 mg PO DAILY@0800 Qty: 30 RF: 3 Cardizem CD 120 mg capsule,extended release 24hr 120 mg PO Q24H Qty: 30 RF: 3 lisinopril 10 mg tablet 10 mg PO DAILY Qty: 30 RF: 3 donepezil 10 mg tablet 10 mg PO DAILY RF: 0 tamsulosin 0.4 mg capsule 0.4 mg PO DAILY RF: 0 pantoprazole 40 mg tablet,delayed release (DR/EC) 40 mg PO DAILY RF: 0 mirtazapine 30 mg tablet 30 mg PO BEDTIME RF: 0 memantine 5 mg tablet 10 mg PO BID RF: 0 aspirin 81 mg Tablet,Chewable 81 mg PO DAILY RF: 0 Eliquis 5 mg tablet 5 mg PO Q12H Qty: 60 RF: 0 Discharge Orders: Discharge Order (Routine); Ordered 09/14/19 Ordered By: Angy Longoria Referrals: Quintin Montes MD [Family Provider] - 1-3 days Discharge Diet: Advance as tolerated Discharge Activity: Resume usual activity Patient Instructions: Chest Pain (ED) Discharge Date/Time: 09/14/19 16:06 Coding Level of Care Code ED Melt House Drag Operator for Jwg Fwd Exam Comprehensive
[2019-09-14 13:49] LABS: Basophils # 0.1 10^3/uL (0.0-0.1); Eosinophils # 0.1 10^3/uL (0.0-0.8); Eosinophils % 1.6 %; Hematocrit 47.7 % (42.0-52.0); Hemoglobin 15.5 g/dL (11.7-16.6); Lymphocytes # 2.6 10^3/uL (0.8-4.8); Lymphocytes % 30.9 %; Mean Corpuscular HGB Conc 32.5 g/dL (30.0-36.0); Mean Corpuscular Hemoglobin 30.9 pg (28.0-34.0); Mean Platelet Volume 11.4 fL (7.4-10.4); Monocytes # 0.5 10^3/uL (0.2-0.9); Monocytes % 6.3 %; Neutrophils % 59.6 %; Nucleated Red Blood Cells % 0 %; Platelet Count 243 10^3/cmm (130-400); Red Blood Count 5.02 10^6/uL (4.1-5.3); Red Cell Distribution Width 13.7 % (12.1-15.1); White Blood Count 8.4 10^3/uL (4.0-10.0)
[2019-09-14 13:50] VITALS: BP 147/85; PULSE 93; RESP 30; O2SAT 92
[2019-09-14 14:08] LABS: Alanine Aminotransferase 26 U/L (0-41); Albumin Level 4.2 g/dL (3.5-5.2); Alkaline Phosphatase 112 IU/L (40-130); Anion Gap 18.3 (5-19); Aspartate Amino Transferase 26 U/L (0-40); Blood Urea Nitrogen 12 mg/dL (8-23); Calcium 9.8 mg/dL (8.5-10.5); Carbon Dioxide 27 mmol/L (22-29); Chloride 99 mmol/L (98-107); Globulin 3.4 g/dL (1.3-4.6); Glucose 136 mg/dL (65-115); Osmolality Calculated 288 mOsm/kg (285-295); Potassium 4.3 mmol/L (3.5-5.1); Sodium 140 mmol/L (136-145); Total Bilirubin 0.5 mg/dL (0.15-1.2); Total Protein 7.6 g/dL (6.6-8.7)
[2019-09-14 14:10] LABS: Troponin(5th) Baseline 21 ng/mL (0-15)
[2019-09-14 14:36] LABS: INR 1.12 (0.8-1.2)
[2019-09-14 14:52] VITALS: BP 108/64; PULSE 83; RESP 25; O2SAT 96
[2019-09-14 14:53] VITALS: BP 108/64; PULSE 85; RESP 22; O2SAT 95
--- NOTE | 2019-09-14 15:11 | XR_ITS ---
WS: [id number] PORTABLE CHEST HISTORY: cp COMPARISON: 07/28/2019 Hyperinflated lungs. Large bulla in the LEFT upper lobe. Overall much improved aeration as compared t o 07/28/2019. No pneumonia. Normal vasculature. No pleural effusion or pneumothorax. Cardiac size: Normal. Mediastinum/Aorta: Mild atherosclerosis aorta. No osseous abnormality seen. XR/XR chest 1V portable [id number] IMPRESSION: 1. Bullous emphysema. 2. Resolved pneumonia since 07/28/2019.
[2019-09-14 15:21] LABS: Troponin 5 2HR 18.56 ng/mL (0-15)
[2019-09-14 15:25] LABS: Troponin 5 2HR Delta -2.44 ABS# (0-10)
--- NOTE | 2019-09-14 15:40 | ECG_ITS ---
Measurements Intervals [place] Rate: 85 P: 58 IN: 201 QRS: -41 QRSD: 134 T: 132 QT: 391 QTc: 467 SINUS RHYTHM INTRAVENTRICULAR CONDUCTION DELAY [130+ ms QRS DURATION] INFERIOR MYOCARDIAL INFARCTION [40+ ms Q WAVE AND/OR ST/T ABNORMALITY IN II/aVF], OF INDETERMINATE AGE Compared to ECG 07/31/2019 23:48:23 There is no change Electronically Signed On 09-14-2019 18:14:20 CDT by Ольга Pressley M.D. [id number]
[2019-09-14 16:17] VITALS: BP 91/61; PULSE 91; RESP 20; O2SAT 92
--- NOTE | 2019-09-14 19:40 | ECG_ITS ---
Measurements Intervals [place] Rate: 88 P: 59 IL: 193 QRS: -38 QRSD: 136 T: 128 QT: 366 QTc: 445 SINUS RHYTHM INTRAVENTRICULAR CONDUCTION DELAY [130+ ms QRS DURATION] INFERIOR MYOCARDIAL INFARCTION [40+ ms Q WAVE AND/OR ST/T ABNORMALITY IN II/aVF], OF INDETERMINATE AGE Compared to ECG 07/31/2019 23:48:23 Intraventricular conduction delay now present Atrial fibrillation no longer present Aberrant conduction of supraventricular beat(s) no longer present Ventricular premature complex(es) no longer present Myocardial infarct finding still present Electronically Signed On 09-14-2019 18:13:49 CDT by Ольга Pressley M.D. [email or web address]
== END 2019-09-14 16:06 | disposition home or self-care (01) ==
PROVIDERS: Emergency Provider Emergency Medicine; Family Provider Family Medicine
DX: R07.9 Chest pain, unspecified (principal); Z79.01 Long term (current) use of anticoagulants; Z79.82 Long term (current) use of aspirin; J44.9 Chronic obstructive pulmonary disease, unspecified; F03.90 Unspecified dementia, unspecified severity, without behavioral disturbance, psychotic disturbance, mood disturbance, and anxiety; I10 Essential (primary) hypertension; E78.5 Hyperlipidemia, unspecified; Z87.891 Personal history of nicotine dependence; K21.9 Gastro-esophageal reflux disease without esophagitis
CPT/HCPCS: 12345; 36415; 71045; 80053; 84484; 85025; 85610; 93005; 99283

== ENCOUNTER → 2019-10-05 08:20 | Outpatient (BNVA) | payer MEDICARE, OTHER, SELFPAY | PROVIDERS: Family Provider Family Medicine; PCP Family Medicine; Visit Provider Internal Medicine Cardiovascular Disease | DX: I50.43 Acute on chronic combined systolic (congestive) and diastolic (congestive) heart failure (principal); I48.0 Paroxysmal atrial fibrillation; J44.1 Chronic obstructive pulmonary disease with (acute) exacerbation; E78.2 Mixed hyperlipidemia; Z86.79 Personal history of other diseases of the circulatory system | CPT/HCPCS: 80048; 83735; 83880 ==

== ENCOUNTER 2019-10-19 12:19 | Outpatient (CLI) | payer MEDICARE, OTHER, SELFPAY ==
--- NOTE | 2019-10-19 13:08 | PFTS_ITS ---
Date of Study:10/19/19 Date of Dictation: MECHANICS: Forced vital capacity (FVC) is normal. Forced expiratory volume in one second (FEV1) is reduced. FEV1/FVC is reduced. FLOW VOLUME LOOP: Reduced flow at all lung volumes with significant scooping. LUNG VOLUMES: Total lung capacity (TLC) is normal. Residual volume (RV) is increased. DIFFUSING CAPACITY FOR CARBON MONOXIDE: Moderately reduced. INTERPRETATION: The pulmonary function tests are consistent with moderate obstruction. There is significant postbronchodilator response. Lung volumes are consistent with air trapping. Gas exchange (DLCO) is moderately reduced. MTDD
== END 2019-10-19 12:20 | disposition home or self-care (01) ==
LOC: RT 12:22
PROVIDERS: Family Provider Family Medicine; PCP Family Medicine; Visit Provider Internal Medicine Cardiovascular Disease
DX: J44.1 Chronic obstructive pulmonary disease with (acute) exacerbation (principal)
CPT/HCPCS: 94060; 94726; 94729

== ENCOUNTER 2019-11-24 06:56 | Outpatient (CLI) | payer MEDICARE, OTHER, SELFPAY ==
[2019-11-24 07:09] VITALS: BMI 25.2
--- NOTE | 2019-11-24 07:10 | ECG_ITS ---
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 Interpretive Statements NAME OF STUDY: LEXISCAN SESTAMIBI STRESS TEST INDICATION: CHF NOTE: Please note that this is the electrocardiogram portion of the Lexiscan/Sestamibi stress test. The perfusion scan will be documented separately. DATA: Baseline heart rate was 73 beats per minute. Baseline blood pressure was 118/63 millimeters of mercury. Target heart rate was 147. Maximum heart rate achieved was 112. which was 76 % of the predicted target heart rate. Maximum blood pressure was 146/75 millimeters of mercury. The reason for ending the test was completion of the protocol. The patient did not experience any symptoms. ELECTROCARDIOGRAM: BASELINE: Sinus rhythm. Normal axis. Old anterior wall myocardial infarction, no ST-T changes suggestive of ischemia noted. No arrhythmia noted. EXERCISE: After Lexiscan injection, no ST-T changes suggestive of ischemic noted. No arrhythmia noted. CONCLUSION: Please note due to baseline abnormality of the EKG specificity and sensitivity of the EKG portion of LexiScan MIBI stress test will be low 1. EKG not suggestive of ischemia 2. Lexiscan injection unremarkable. 3. Perfusion scan will be documented separately. Electronically Signed On 11-26-2019 19:11:15 CDT by Ольга Pressley M.D. [id number]
--- NOTE | 2019-11-24 07:10 | NMCV_ITS ---
NM beckie perf SPECT r/s* [id number] Isaac Simpson Age: 74 Gender: M : 1945 Exam Date: 11/24/2019 08:01 Ordering Phys: Sylvia Willett MD ([email or web address]) Technologist: SEBASTIAN Garcia Exam Location: [facility] Indications: HEART STRESS TEST Please see separate stress test report in [facility] for full findings IMAGE PROTOCOL Rest/Stress 1 Lexiscan Day Radiopharmaceutical Dose (mCi) Administration Site Administered by Rest: Tc-99m 10.5 IV SEBASTIAN Garcia Sestamibi Stress:Tc-99m 33.0 IV SEBASTIAN Garcia Sestamibi Rest: 24-Nov-2019 60 Discovery 630 Stress: 24-Nov-2019 30 Discovery 630 0.4mg Lexiscan. Supine position only as patient was unable to lay prone. SPECT RESULTS Technical Quality: Good Raw Data Analysis: Normal Image Corrections: No attenuation or motion correction applied Summed Stress Score: 21 Summed Rest Score: 19 Summed Difference Score: 3 PERFUSION FINDINGS Large sized perfusion abnormality of severe severity of entire inferior, mid to apical inferoseptal, mid to apical inferolateral and apical gomez on rest and stress images. FUNCTIONAL RESULTS (calculated via Gated SPECT) Stress Image LV EF (%): 28 Stress EDV (mL):163 TID: 0.84 Stress ESV (mL):117 FUNCTIONAL FINDINGS: The left ventricle is dilated. Transient Ischemia Dilatation of 0.84. There is severely reduced left ventricular global systolic function. The left ventricular ejection fraction is severely reduced with a value of 28%. There is severely decreased wall thickening. Markedly increased end-diastolic and end-systolic volumes. IMPRESSIONS 1. Large sized predominantly fixed perfusion abnormality of severe severity of entire inferior, mid to apical inferoseptal, mid to apical inferolateral and apical gomez. 2. This is suggestive of old myocardial infarction in right coronary/circumflex artery territory. However attenuation artifact cannot be completely ruled out in absence of prone imaging. 3. There is severely reduced left ventricular global systolic function with global hypokinesis. 4. The left ventricular ejection fraction is severely reduced with a value of 28%. 5. No significant coronary ischemia based on the study. Sylvia Willett MD (Electronically Signed) Final Date: 29 November 2019 13:26 S
--- NOTE | 2019-11-24 09:05 | SUR.PREOP ---
Patient reports no pain or discomfort prior to the start of the procedure.
[2019-11-24] MEDS: regadenoson 0.4 Mg/5 ml Syringe IVP (09:06)
[2019-11-24 09:17] VITALS: BP 123/67; PULSE 83
== END 2019-11-24 06:57 | disposition home or self-care (01) ==
LOC: CDL 06:57
PROVIDERS: PCP Family Medicine; Visit Provider Internal Medicine Cardiovascular Disease
DX: R06.00 Dyspnea, unspecified (principal); I50.9 Heart failure, unspecified
CPT/HCPCS: 78452; 93017; A9500; J2785

== ENCOUNTER 2019-11-26 22:51 | Emergency (ER) | payer MEDICARE, OTHER, SELFPAY ==
[2019-11-26 22:53] VITALS: BP 136/80; PULSE 89; RESP 30; TEMP 37.2; O2SAT 95; BMI 28.1
--- NOTE | 2019-11-26 23:05 | XRR_ITS ---
PROCEDURE INFORMATION: Exam: XR Chest, 1 View Exam date and time: 11/26/2019 11:23 PM Age: 74 years old Clinical indication: Shortness of breath and other: Aspiration; Additional info: SOB, ? aspiration TECHNIQUE: Imaging protocol: XR of the chest Views: 1 view. COMPARISON: CR XR chest 1V portable [id number] 09/14/2019 3:16 PM FINDINGS: Lungs: Subtle new interstitial lung disease right lung base which could reflect interstitial pneumonitis. No visible consolidated alveolar airspace disease. Evidence of COPD/chronic bronchitis/bullous emphysema. Evidence of antecedent granulomatous disease. Pleural space: Unremarkable. No pleural effusion. No pneumothorax. Heart/Mediastinum: Cardiac structures and configuration with arterial sclerosis. Bones/joints: Unremarkable. XR/XR chest 1V portable [id number] IMPRESSION: Potential right lower lobe mild pneumonitis.
--- NOTE | 2019-11-26 23:07 | ECG_ITS ---
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 Measurements Intervals [place] Rate: 76 P: 65 IL: 199 QRS: -18 QRSD: 141 T: 155 QT: 401 QTc: 452 Interpretive Statements SINUS RHYTHM INTRAVENTRICULAR CONDUCTION DELAY [130+ ms QRS DURATION] INFERIOR MYOCARDIAL INFARCTION , PROBABLY OLD [40+ ms Q WAVE AND/OR ST/T ABNORMALITY IN II/aVF] Compared to ECG 09/14/2019 15:41:09 No significant changes Electronically Signed On 11-27-2019 10:27:34 CDT by Jose Naylor M.D. [id number]
--- NOTE | 2019-11-26 23:12 | ED_ITS ---
HPI - General Adult General: Chief complaint: General Medical Stated complaint: choking episode/ now anxiety Time Seen by Provider: 11/26/19 22:54 History of Present Illness: HPI narrative: 74-year-old male who had a episode of choking at home. Evidently, he was eating watermelon when he began to choke. He cleared his own airway, but then had an episode following this of intense tremor and shaking. He had some transiently decreased mental status. EMS was called. On their arrival, the patient would look at them and follow commands somewhat but would not speak. With calming, his mental status is improved significantly. He still breathing heavily. Onset (ago): minute(s) Location: chest Radiation: non-radiation Severity: moderate Quality: other Pain Consistency: other Relieving factors: none Associated symptoms: Reports confusion, cough, dyspnea and short of breath; Deny chest pain, rash, palpitations or vomiting Review of Systems Const: Denies: fever(s) or chills Eyes: Denies: change in vision ENMT: Denies: swelling of lips/tongue Card: Denies: chest pain, palpitations or irregular heart rhythm Resp: Reports: dyspnea GI: Denies: vomiting : Denies: difficulty urinating or hematuria Musc: Denies: neck pain or back pain Skin/Breast: Denies: rash or pruritus Neuro: Reports: confusion Psych: Reports: anxiety [facility] ED PFSH: Medical History (Updated 11/27/19 @ 00:40 by Harinder Sanchez DO) COPD (chronic obstructive pulmonary disease) Dementia GERD (gastroesophageal reflux disease) History of hypertension Hyperlipidemia Surgical History History of hernia surgery Family History Father CAD (coronary artery disease) Social History Smoking and tobacco status: former smoker Alcohol intake: never Physical Exam Const: COMMON NORMALS: alert GENERAL APPEARANCE: well developed ORIENTATION/CONSCIOUSNESS: Yes awake, Yes oriented to person and Yes oriented to place; not oriented to time HENMT: COMMON NORMALS: normocephalic, external ears normal, Normal external nose present and moist oral mucous membranes HEAD & SCALP: normocephalic FACE & SINUS: normal facial exam NOSE: Normal external nose present and No nasal discharge present EXTERNAL EAR: Yes external ears normal MOUTH: tongue normal Eye: COMMON NORMALS: Equal, round and reactive pupils present, EOMs intact bilaterally and conjunctivae normal EYELID: eyelids normal CONJUNCTIVA: Yes conjunctivae normal PUPIL: Yes Equal, round and reactive pupils present Neck/C-Spine: GENERAL: No tracheal deviation Chest: COMMONS NORMALS: normal inspection of the chest CHEST: Yes Symmetrical chest wall rise and No tenderness Resp: COMMON NORMALS: clear to auscultation bilaterally EFFORT & INSPECTION: Yes tachypneic, Yes respiratory distress, No retractions, Yes uses accessory muscles and No tracheal deviation AUSCULTATION: clear to auscultation bilaterally, no rhonchi, wheezes and diminished lung sounds Cardio: COMMON NORMALS: regular rate and regular rhythm RATE: regular rate RHYTHM: regular rhythm HEART SOUNDS: no murmurs PERIPHERAL PULSES: radial pulses present GI: INSPECTION: No abdominal distension AUSCULTATION: No Hyperactive bowel sounds present and No Hypoactive bowel sounds present PALPATION: No Tenderness to palpation present (GI), No Guarding due to palpation present (GI) and No Rigid due to palpation PERCUSSION: no dullness to percussion and no tympanic to percussion Neuro: SENSORIUM/ORIENTATION: Yes alert, Yes oriented to person, Yes oriented to place and No oriented to time Psych: COMMON NORMALS: speech normal SPEECH: Yes normal speech Skin: COMMON NORMALS: no rashes or lesions noted GENERAL SKIN EXAM: no rashes or lesions noted Course Vital Signs: Vital signs: Vital Signs Temperature 99.0 F 11/26/19 22:53 Pulse Rate 100 11/27/19 00:43 Respiratory Rate 20 H 11/27/19 00:43 Blood Pressure 109/64 11/27/19 00:43 Pulse Oximetry 93 11/27/19 00:29 MDM - General Adult MDM Narrative: Medical decision making narrative: Patient's mental status is baseline. He was offered admission, but would like to go home. His white blood cell count is 9. Creatinine is 1.8. His chest x-ray shows a probable early pneumonitis in the right base. He was given some Solu-Medrol here. He will be placed on a Medrol Dosepak for the pneumonitis. He will be given warning signs for return. He has an inhaler at home that he uses almost daily. Lab Data: Labs: Lab Results 11/26/19 11/26/19 Range/Units 22:29 22:29 WBC 9.1 (4.0-10.0) 10^3/ uL RBC 4.66 (4.1-5.3) 10^6/u L Hgb 14.6 (11.7-16.6) g/dL Hct 44.4 (42.0-52.0) % MCV 95.3 H (80-94) fL MCH 31.3 (28.0-34.0) pg MCHC 32.9 (30.0-36.0) g/dL RDW 12.0 L (12.1-15.1) % Plt Count 243 (130-400) 10^3/c mm MPV 11.0 H (7.4-10.4) fL Neut % (Auto) 57.6 % Lymph % (Auto) 32.3 % Patrick % (Auto) 7.2 % Eos % (Auto) 1.6 % Baso % (Auto) 0.8 % Neut # (Auto) 5.24 (1.8-7.7) 10^3/u L Lymph # (Auto) 3.0 (0.8-4.8) 10^3/u L Patrick # (Auto) 0.7 (0.2-0.9) 10^3/u L Eos # (Auto) 0.2 (0.0-0.8) 10^3/u L Baso # (Auto) 0.1 (0.0-0.1) 10^3/u L Nucleated RBC % (a uto) 0 % Nucleated RBCs # 0.0 /100WBC Sodium 135 L (136-145) mmol/L Potassium 4.3 (3.5-5.1) mmol/L Chloride 97 L (98-107) mmol/L Carbon Dioxide 26 (22-29) mmol/L Anion Gap 16.3 (5-19) BUN 18 (8-23) mg/dL Creatinine 1.8 H (0.7-1.2) mg/dL Glucose 141 H (65-115) mg/dL Calculated Osmolal ity 279 L (285-295) mOsm/k g Calcium 9.5 (8.5-10.5) mg/dL Magnesium 2.0 (1.7-2.3) mg/dL Total Bilirubin 0.3 (0.15-1.2) mg/dL AST 17 (0-40) U/L ALT 15 (0-41) U/L Alkaline Phosphata se 96 (40-130) IU/L Creatine Kinase 80 (39-308) U/L Total Protein 7.2 (6.6-8.7) g/dL Albumin 4.4 (3.5-5.2) g/dL Globulin 2.8 (1.3-4.6) g/dL Discharge Plan Discharge Patient Disposition: Home, Self-Care Clinical Impression: Aspiration pneumonitis Condition: Stable Prescriptions: New Medrol (Jarek) 4 mg tablets,dose pack See Rx Instructions .ROUTE .COMPLEX Qty: 21 RF: 0 No Action Eliquis 5 mg tablet 5 mg PO Q12H Qty: 60 RF: 6 lisinopril 10 mg tablet 10 mg PO DAILY Qty: 30 RF: 3 metoprolol succinate 100 mg tablet extended release 24 hr 100 mg PO DAILY Qty: 30 RF: 3 potassium chloride 10 mEq tablet extended release 10 meq PO DAILY Qty: 30 RF: 5 donepezil 10 mg tablet 10 mg PO DAILY RF: 0 pantoprazole 40 mg tablet,delayed release (DR/EC) 40 mg PO DAILY RF: 0 aspirin 81 mg Tablet,Chewable 81 mg PO DAILY RF: 0 furosemide 40 mg tablet 40 mg PO DAILY@0800 RF: 0 Discharge Orders: Discharge Order (Routine); Ordered 11/27/19 Ordered By: Harinder Sanchez Referrals: Quintin Montes MD [Primary Care Provider] - 4-7 days Discharge Diet: Usual diet Discharge Activity: Increase activity as tolerated Patient Instructions: Aspiration Activity Restrictions/Additional Instructions: Return for worsening shortness of breath. Return for fever greater than 100, mental status changes, chest discomfort, other concerning symptoms. Medication as directed. Use your inhaler every 4 hours while awake for the next 48 hours, then as needed. Coding Level of Care Code ED Data Security Consultant for Jwg Fwd Exam Comprehensive
[2019-11-26 23:17] LABS: Basophils # 0.1 10^3/uL (0.0-0.1); Basophils % 0.8 %; Eosinophils # 0.2 10^3/uL (0.0-0.8); Eosinophils % 1.6 %; Hematocrit 44.4 % (42.0-52.0); Hemoglobin 14.6 g/dL (11.7-16.6); Lymphocytes % 32.3 %; Mean Corpuscular HGB Conc 32.9 g/dL (30.0-36.0); Mean Corpuscular Hemoglobin 31.3 pg (28.0-34.0); Mean Corpuscular Volume 95.3 fL (80-94); Monocytes # 0.7 10^3/uL (0.2-0.9); Monocytes % 7.2 %; Neutrophils # 5.24 10^3/uL (1.8-7.7); Neutrophils % 57.6 %; Nucleated Red Blood Cells % 0 %; Platelet Count 243 10^3/cmm (130-400); Red Blood Count 4.66 10^6/uL (4.1-5.3); White Blood Count 9.1 10^3/uL (4.0-10.0)
[2019-11-26] MEDS: LORazepam 2 mg/mL INJ 1 mL 0.5 MG IVP (23:20)
[2019-11-26 23:24] VITALS: BP 128/67; RESP 20; O2SAT 93
[2019-11-26 23:25] VITALS: PULSE 79; RESP 18; O2SAT 95
[2019-11-26] MEDS: ipratropium-albuterol 3 mL Neb INHALATION (23:25)
[2019-11-26 23:29] LABS: Alanine Aminotransferase 15 U/L (0-41); Albumin Level 4.4 g/dL (3.5-5.2); Alkaline Phosphatase 96 IU/L (40-130); Anion Gap 16.3 (5-19); Aspartate Amino Transferase 17 U/L (0-40); Blood Urea Nitrogen 18 mg/dL (8-23); Calcium 9.5 mg/dL (8.5-10.5); Carbon Dioxide 26 mmol/L (22-29); Chloride 97 mmol/L (98-107); Creatine Phosphokinase 80 U/L (39-308); Creatinine Clr Calc Pharmacy 38.5695; Globulin 2.8 g/dL (1.3-4.6); Glucose 141 mg/dL (65-115); Osmolality Calculated 279 mOsm/kg (285-295); Potassium 4.3 mmol/L (3.5-5.1); Sodium 135 mmol/L (136-145); Total Bilirubin 0.3 mg/dL (0.15-1.2); Total Protein 7.2 g/dL (6.6-8.7)
[2019-11-26 23:35] VITALS: PULSE 82; O2SAT 96
[2019-11-27 00:29] VITALS: PULSE 105; RESP 20; O2SAT 93
--- NOTE | 2019-11-27 00:30 | PC.NURSE ---
ambulated pt in the muñoz with pulse ox. O2 stat maintained at 92-94%
[2019-11-27 00:43] VITALS: BP 109/64; PULSE 100; RESP 20
== END 2019-11-27 01:20 | disposition home or self-care (01) ==
PROVIDERS: Emergency Provider Emergency Medicine; PCP Family Medicine
DX: J69.0 Pneumonitis due to inhalation of food and vomit (principal); Z79.01 Long term (current) use of anticoagulants; Z79.82 Long term (current) use of aspirin; J44.9 Chronic obstructive pulmonary disease, unspecified; F03.90 Unspecified dementia, unspecified severity, without behavioral disturbance, psychotic disturbance, mood disturbance, and anxiety; I10 Essential (primary) hypertension; E78.5 Hyperlipidemia, unspecified; Z87.891 Personal history of nicotine dependence
CPT/HCPCS: 12345; 71045; 80053; 82550; 83735; 85025; 93005; 94640; 96374; 96375; 99283; 99284; J2060; J2930

== ENCOUNTER 2020-02-03 19:14 | Emergency (ER) | payer MEDICARE, OTHER, SELFPAY ==
[2020-02-03] VITALS (8 sets, daily range): BP systolic 122–139; BP diastolic 68–87; PULSE 69–87; RESP 18–28; TEMP 36.1; O2SAT 92–96; BMI 27.3
--- NOTE | 2020-02-03 19:17 | ECG_ITS ---
[facility] Test Date: 2020-02-03 Pat Name: Isaac Simpson Department: Room: Gender: Male Shoder Filler: : 1945 Requested By: Angy Longoria Order Number: [id number] Heron MD: Sylvia Willett M.D. Measurements Intervals [place] Rate: 72 P: 67 NM: 205 QRS: -28 QRSD: 132 T: 112 QT: 377 QTc: 415 Interpretive Statements SINUS RHYTHM INTRAVENTRICULAR CONDUCTION DELAY [130+ ms QRS DURATION] INFERIOR MYOCARDIAL INFARCTION , PROBABLY OLD [40+ ms Q WAVE AND/OR ST/T ABNORMALITY IN II/aVF] Compared to ECG 11/26/2019 23:21:29 No significant changes Electronically Signed On 02-05-2020 8:32:55 CDT by Sylvia Willett M.D. [email or web address]/store/[id number] f
--- NOTE | 2020-02-03 19:17 | XRR_ITS ---
PROCEDURE INFORMATION: Exam: XR Chest, 1 View Exam date and time: 02/03/2020 7:50 PM Age: 74 years old Clinical indication: Chest pain; Type not specified; Patient HX: Copd, chf, afib; Additional info: [id number] TECHNIQUE: Imaging protocol: XR of the chest Views: 1 view. COMPARISON: CR XR chest 1V portable [id number] 11/26/2019 11:11 PM FINDINGS: Lungs: Large bulla left apex. Lungs are well aerated without a focal area of consolidation. Pleural space: Unremarkable. No pleural effusion. No pneumothorax. Heart/Mediastinum: Unremarkable. No cardiomegaly. Bones/joints: Unremarkable. XR/XR chest 1V portable [id number] IMPRESSION: Lungs are well aerated without a focal area of consolidation.
--- NOTE | 2020-02-03 19:40 | ED_ITS ---
HPI - SOB/Dyspnea General: Chief Complaint: Shortness of Breath/Dyspnea Stated Complaint: sob/chest pain Time Seen by Provider: 02/03/20 19:30 Source: patient Mode of arrival: ambulatory Limitations: no limitations History of Present Illness: HPI Narrative: 74-year-old male who has a history of CHF along with COPD. Patient states he is having chest pain and palpitation earlier today along with some shortness of breath. Patient states that his pain and palpitations have since resolved still has some mild dyspnea. He denies any cough and denies any fever. Patient does have some tachypnea and wheezing here but has not required any oxygen. He denies any fevers and denies any sick exposure. [facility] ED PFS: Medical History (Updated 02/03/20 @ 22:33 by Angy Longoria MD) COPD (chronic obstructive pulmonary disease) Dementia GERD (gastroesophageal reflux disease) History of hypertension Hyperlipidemia Surgical History History of hernia surgery Family History Father CAD (coronary artery disease) Social History Smoking and tobacco status: former smoker Alcohol intake: never Physical Exam Const: COMMON NORMALS: no acute distress, patient oriented x3 and healthy appearing HENMT: COMMON NORMALS: normocephalic and atraumatic HEAD & SCALP: normocephalic and atraumatic Eye: COMMON NORMALS: Equal, round and reactive pupils present and EOMs intact bilaterally PUPIL: Yes Equal, round and reactive pupils present Neck/C-Spine: COMMON NORMALS: full ROM and supple Chest: COMMONS NORMALS: normal inspection of the chest and normal palpation of entire chest wall Resp: COMMON NORMALS: No retractions and No use of accessory muscles EFFORT & INSPECTION: Yes tachypneic AUSCULTATION: wheezes Cardio: COMMON NORMALS: regular rate, regular rhythm and No murmurs present (Cardio) RATE: regular rate RHYTHM: regular rhythm GI: COMMON NORMALS: Normal to inspection, nondistended, normoactive bowel sounds present, Soft to palpation, non-tender and no masses PALPATION: Yes Soft to palpation Extremity: COMMON NORMALS: normal to inspection and full ROM Neuro: COMMON NORMALS: patient oriented x3, moves all extremities and no focal motor deficits Psych: COMMON NORMALS: mental status grossly normal, Normal thought process present and cooperative THOUGHT PROCESS: Normal thought process present Skin: COMMON NORMALS: no rashes or lesions noted and no wounds GENERAL SKIN EXAM: no rashes or lesions noted Course Vital Signs: Vital signs: Vital Signs Temperature 97.0 F L 02/03/20 19:27 Pulse Rate 72 02/03/20 22:13 Respiratory Rate 18 02/03/20 22:13 Blood Pressure 122/69 02/03/20 22:13 Pulse Oximetry 92 02/03/20 22:13 MDM - SOB/Dyspnea MDM Narrative: Medical decision making narrative: Patient presents here with COPD exacerbation likely causing his chest pain and shortness of breath. Patient's troponins here are negative and CT of his chest is negative as well. He has no signs of COVID. Patient feels improved after breathing treatments and is requesting discharge. I feel patient is stable for discharge and we will place him on prednisone. He is to follow-up with PCP and return if worsening. He understands and agrees to plan. Lab Data: Labs: Lab Results 02/03/20 02/03/20 02/03/20 Range/Units 19:27 19:27 19:27 WBC 9.8 (4.0-10.0) 10^3/ uL RBC 4.98 (4.1-5.3) 10^6/u L Hgb 15.8 (11.7-16.6) g/dL Hct 48.2 (42.0-52.0) % MCV 96.8 H (80-94) fL MCH 31.7 (28.0-34.0) pg MCHC 32.8 (30.0-36.0) g/dL RDW 12.9 (12.1-15.1) % Plt Count 229 (130-400) 10^3/c mm MPV 11.0 H (7.4-10.4) fL Neut % (Auto) 56.9 % Lymph % (Auto) 32.5 % Randolph % (Auto) 7.1 % Eos % (Auto) 2.1 % Baso % (Auto) 0.8 % Neut # (Auto) 5.58 (1.8-7.7) 10^3/u L Lymph # (Auto) 3.2 (0.8-4.8) 10^3/u L Randolph # (Auto) 0.7 (0.2-0.9) 10^3/u L Eos # (Auto) 0.2 (0.0-0.8) 10^3/u L Baso # (Auto) 0.1 (0.0-0.1) 10^3/u L Nucleated RBC % (a uto) 0 % Nucleated RBCs # 0.0 /100WBC PT 14.40 (12.1-14.9) SECO NDS INR 1.09 (0.8-1.2) D-Dimer 0.87 H (0-0.59) ug/mIFE U Sodium 136 (136-145) mmol/L Potassium 4.6 (3.5-5.1) mmol/L Chloride 101 (98-107) mmol/L Carbon Dioxide 24 (22-29) mmol/L Anion Gap 15.6 (5-19) BUN 23 (8-23) mg/dL Creatinine 1.8 H (0.7-1.2) mg/dL GFR Calculation Not Reportable Glucose 121 H (65-115) mg/dL Calculated Osmolal ity 287 (285-295) mOsm/k g Calcium 9.1 (8.5-10.5) mg/dL Total Bilirubin 0.3 (0.15-1.2) mg/dL AST 15 (0-40) U/L ALT 18 (0-41) U/L Alkaline Phosphata se 92 (40-130) IU/L Troponin T Baselin e (0-15) ng/L Troponin T 120 Min [place] (0-15) ng/L Delta Troponin T (0-10) ABS# NT-Pro-B Natriuret Pep 231 H (0-125) pg/mL Total Protein 7.2 (6.6-8.7) g/dL Albumin 4.4 (3.5-5.2) g/dL Globulin 2.8 (1.3-4.6) g/dL 02/03/20 02/03/20 Range/Units 19:27 21:41 WBC (4.0-10.0) 10^3/ uL RBC (4.1-5.3) 10^6/u L Hgb (11.7-16.6) g/dL Hct (42.0-52.0) % MCV (80-94) fL MCH (28.0-34.0) pg MCHC (30.0-36.0) g/dL RDW (12.1-15.1) % Plt Count (130-400) 10^3/c mm MPV (7.4-10.4) fL Neut % (Auto) % Lymph % (Auto) % Randolph % (Auto) % Eos % (Auto) % Baso % (Auto) % Neut # (Auto) (1.8-7.7) 10^3/u L Lymph # (Auto) (0.8-4.8) 10^3/u L Randolph # (Auto) (0.2-0.9) 10^3/u L Eos # (Auto) (0.0-0.8) 10^3/u L Baso # (Auto) (0.0-0.1) 10^3/u L Nucleated RBC % (a uto) % Nucleated RBCs # /100WBC PT (12.1-14.9) SECO NDS INR (0.8-1.2) D-Dimer (0-0.59) ug/mIFE U Sodium (136-145) mmol/L Potassium (3.5-5.1) mmol/L Chloride (98-107) mmol/L Carbon Dioxide (22-29) mmol/L Anion Gap (5-19) BUN (8-23) mg/dL Creatinine (0.7-1.2) mg/dL GFR Calculation Glucose (65-115) mg/dL Calculated Osmolal ity (285-295) mOsm/k g Calcium (8.5-10.5) mg/dL Total Bilirubin (0.15-1.2) mg/dL AST (0-40) U/L ALT (0-41) U/L Alkaline Phosphata se (40-130) IU/L Troponin T Baselin e 15 (0-15) ng/L Troponin T 120 Min [place] 15.76 H (0-15) ng/L Delta Troponin T 0.76 (0-10) ABS# NT-Pro-B Natriuret Pep (0-125) pg/mL Total Protein (6.6-8.7) g/dL Albumin (3.5-5.2) g/dL Globulin (1.3-4.6) g/dL Imaging Data^: CXR: Attestation: I personally reviewed and interpreted this imaging study as follows: My impression: no acute abnormality CT Chest: Attestation: I personally reviewed and interpreted this imaging study as follows: Radiologist's impression: [address] [address] [address] Scan Report Signed Patient: Isaac Simpson Unit #: [id number] : 1945 Age/Sex: 74 / M ADM Date: 02/03/20 Loc: ER Room/Bed: Attending Dr: Ordering Provider/Ordering MD: Angy Longoria MD Date of Service: 02/03/20 Procedure(s): CT angio chest PE protcl [id number] Accession Number(s): [id number] Report Number: [id number] PROCEDURE INFORMATION: Exam: CT Angiography Chest With Contrast Exam date and time: 02/03/2020 9:07 PM Age: 74 years old Clinical indication: Shortness of breath; Prior surgery; Surgery type: Hernia; Additional info: Cp TECHNIQUE: Imaging protocol: Computed tomographic angiography of the chest with intravenous contrast. 3D rendering (Not supervised by radiologist): MIP and/or 3D reconstructed images were created by the technologist. Radiation optimization: All CT scans at this facility use at least one of these dose optimization techniques: automated exposure control; mA and/or kV adjustment per patient size (includes targeted exams where dose is matched to clinical indication); or iterative reconstruction. Contrast material: VISI; Contrast volume: 95 ml; Contrast route: INTRAVENOUS (IV); COMPARISON: CT chest con [id number] 07/31/2019 11:31 PM RADIATION DOSE METRICS: Total DLP (mGy-cm): 640.17 FINDINGS: Pulmonary arteries: Normal. No pulmonary emboli. Aorta: Unremarkable. No aortic aneurysm. No aortic dissection. Lungs: Centrilobular emphysematous changes. Pleural space: Unremarkable. No pneumothorax. No pleural effusion. Heart: Cardiomegaly. Coronary artery atherosclerotic calcifications. Lymph nodes: Unremarkable. No enlarged lymph nodes. Gallbladder and bile ducts: Cholecystectomy. Bones/joints: Unremarkable. No acute fracture. Soft tissues: Bilateral benign renal cysts, negative for follow-up advised. CT/CT angio chest PE protcl [id number] IMPRESSION: 1. Negative for pulmonary embolus or airspace infiltrate 2. Cardiomegaly. 3. Coronary artery atherosclerotic calcifications. 4. Cholecystectomy. 5. Centrilobular emphysematous changes. EKG Data^: EKG 1: Attestation: I personally reviewed and interpreted this EKG as follows: EKG Interpretation Date: 02/03/20 EKG interpretation time: 19:26 Interpretation: Normal sinus rhythm heart rate [address] or T wave abnormalities QRS 132 QTC 402 Discharge Plan Discharge Patient Disposition: Home Clinical Impression: Acute exacerbation of chronic obstructive airways disease Condition: Stable Prescriptions: New prednisone 50 mg tablet 50 mg PO DAILY Qty: 5 RF: 0 No Action Eliquis 5 mg tablet 5 mg PO Q12H Qty: 60 RF: 6 lisinopril 10 mg tablet 10 mg PO DAILY Qty: 30 RF: 3 furosemide 40 mg tablet 40 mg PO DAILY@0800 Qty: 30 RF: 5 potassium chloride 10 mEq tablet extended release 10 meq PO DAILY Qty: 30 RF: 5 metoprolol succinate 100 mg tablet extended release 24 hr 100 mg PO DAILY Qty: 30 RF: 3 prednisolone acetate 1 % Drops,Suspension 1 drp OPHTHALMIC (EYE) BID RF: 0 Flomax 0.4 mg Capsule 0.4 mg PO DAILY RF: 0 Remeron 30 mg Tablet 30 mg PO BEDTIME RF: 0 memantine 10 mg Tablet 10 mg PO BID RF: 0 Trelegy Ellipta 100-62.5-25 mcg Blister With Device 1 inh INHALATION DAILY RF: 0 donepezil 10 mg tablet 10 mg PO DAILY RF: 0 pantoprazole 40 mg tablet,delayed release (DR/EC) 40 mg PO DAILY RF: 0 aspirin 81 mg Tablet,Chewable 81 mg PO DAILY RF: 0 Discharge Orders: Discharge Order (Routine); Ordered 02/03/20 Ordered By: Angy Longoria Referrals: Quintin Montes MD [Primary Care Provider] - 1-3 days Discharge Diet: Advance as tolerated Discharge Activity: Resume usual activity Patient Instructions: Chronic Obstructive Pulmonary Disease (ED) Coding Level of Care Code ED Program Director/Morning Show Host for Chg Fwd Exam Comprehensive
[2020-02-03 19:43] LABS: Basophils # 0.1 10^3/uL (0.0-0.1); Basophils % 0.8 %; Eosinophils # 0.2 10^3/uL (0.0-0.8); Eosinophils % 2.1 %; Hematocrit 48.2 % (42.0-52.0); Hemoglobin 15.8 g/dL (11.7-16.6); Lymphocytes # 3.2 10^3/uL (0.8-4.8); Lymphocytes % 32.5 %; Mean Corpuscular HGB Conc 32.8 g/dL (30.0-36.0); Mean Corpuscular Hemoglobin 31.7 pg (28.0-34.0); Mean Corpuscular Volume 96.8 fL (80-94); Monocytes # 0.7 10^3/uL (0.2-0.9); Monocytes % 7.1 %; Neutrophils # 5.58 10^3/uL (1.8-7.7); Neutrophils % 56.9 %; Nucleated Red Blood Cells % 0 %; Platelet Count 229 10^3/cmm (130-400); Red Blood Count 4.98 10^6/uL (4.1-5.3); Red Cell Distribution Width 12.9 % (12.1-15.1); White Blood Count 9.8 10^3/uL (4.0-10.0)
[2020-02-03 19:53] LABS: INR 1.09 (0.8-1.2)
[2020-02-03 19:56] LABS: D Dimer 0.87 ug/mIFEU (0-0.59)
--- NOTE | 2020-02-03 19:58 | CTR_ITS ---
PROCEDURE INFORMATION: Exam: CT Angiography Chest With Contrast Exam date and time: 02/03/2020 9:07 PM Age: 74 years old Clinical indication: Shortness of breath; Prior surgery; Surgery type: Hernia; Additional info: Cp TECHNIQUE: Imaging protocol: Computed tomographic angiography of the chest with intravenous contrast. 3D rendering (Not supervised by radiologist): MIP and/or 3D reconstructed images were created by the technologist. Radiation optimization: All CT scans at this facility use at least one of these dose optimization techniques: automated exposure control; mA and/or kV adjustment per patient size (includes targeted exams where dose is matched to clinical indication); or iterative reconstruction. Contrast material: VISI; Contrast volume: 95 ml; Contrast route: INTRAVENOUS (IV); COMPARISON: CT chest [facility] [id number] 07/31/2019 11:31 PM RADIATION DOSE METRICS: Total DLP (mGy-cm): 640.17 FINDINGS: Pulmonary arteries: Normal. No pulmonary emboli. Aorta: Unremarkable. No aortic aneurysm. No aortic dissection. Lungs: Centrilobular emphysematous changes. Pleural space: Unremarkable. No pneumothorax. No pleural effusion. Heart: Cardiomegaly. Coronary artery atherosclerotic calcifications. Lymph nodes: Unremarkable. No enlarged lymph nodes. Gallbladder and bile ducts: Cholecystectomy. Bones/joints: Unremarkable. No acute fracture. Soft tissues: Bilateral benign renal cysts, negative for follow-up advised. CT/CT angio chest [facility] [id number] IMPRESSION: 1. Negative for pulmonary embolus or airspace infiltrate 2. Cardiomegaly. 3. Coronary artery atherosclerotic calcifications. 4. Cholecystectomy. 5. Centrilobular emphysematous changes. Radiation Dose CTDIVOL = (mGy): DLP = 640.17 (mGy-cm)
[2020-02-03 20:03] LABS: Troponin(5th) Baseline 15 ng/L (0-15)
[2020-02-03 20:12] LABS: Alanine Aminotransferase 18 U/L (0-41); Albumin Level 4.4 g/dL (3.5-5.2); Alkaline Phosphatase 92 IU/L (40-130); Anion Gap 15.6 (5-19); Aspartate Amino Transferase 15 U/L (0-40); Blood Urea Nitrogen 23 mg/dL (8-23); Calcium 9.1 mg/dL (8.5-10.5); Carbon Dioxide 24 mmol/L (22-29); Chloride 101 mmol/L (98-107); Globulin 2.8 g/dL (1.3-4.6); Glucose 121 mg/dL (65-115); NT Pro B Type Natriuretic Pept 231 pg/mL (0-125); Osmolality Calculated 287 mOsm/kg (285-295); Potassium 4.6 mmol/L (3.5-5.1); Sodium 136 mmol/L (136-145); Total Bilirubin 0.3 mg/dL (0.15-1.2); Total Protein 7.2 g/dL (6.6-8.7)
[2020-02-03] MEDS: ipratropium-albuterol 3 mL Neb INHALATION (20:20)
--- NOTE | 2020-02-03 20:57 | PC.NURSE ---
patient had episode of severe CP, EKG taken given to MD, orders received
--- NOTE | 2020-02-03 21:17 | ECG_ITS ---
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 Measurements Intervals [place] Rate: 70 P: 64 MO: 219 QRS: -50 QRSD: 127 T: 109 QT: 396 QTc: 429 Interpretive Statements SINUS RHYTHM WITH FIRST DEGREE AV BLOCK LEFT ANTERIOR FASCICULAR BLOCK INFERIOR MYOCARDIAL INFARCTION , PROBABLY OLD Compared to ECG 02/03/2020 19:26:30 First degree AV block now present Left anterior fascicular block now present Intraventricular conduction delay no longer present Myocardial infarct finding still present Electronically Signed On 02-05-2020 9:10:14 CDT by Sylvia Willett M.D. [id number]
[2020-02-03] MEDS: iodixanol 320 mg/mL 100mL Btl IV (21:23)
[2020-02-03 22:25] LABS: Troponin 5 2HR 15.76 ng/L (0-15); Troponin 5 2HR Delta 0.76 ABS# (0-10)
== END 2020-02-03 23:12 | disposition home or self-care (01) ==
PROVIDERS: Emergency Provider Emergency Medicine; PCP Family Medicine
DX: J44.1 Chronic obstructive pulmonary disease with (acute) exacerbation (principal); Z79.01 Long term (current) use of anticoagulants; Z79.82 Long term (current) use of aspirin; F03.90 Unspecified dementia, unspecified severity, without behavioral disturbance, psychotic disturbance, mood disturbance, and anxiety; E78.5 Hyperlipidemia, unspecified; I10 Essential (primary) hypertension; Z87.891 Personal history of nicotine dependence
CPT/HCPCS: 12345; 36415; 71045; 71275; 80053; 83880; 84484; 85025; 85378; 85610; 93005; 94640; 96374; 99283; 99284; J2930; Q9967

== ENCOUNTER 2020-03-05 20:58 | Emergency (ER) | payer MEDICARE, OTHER, SELFPAY ==
[2020-03-05 20:59] VITALS: BP 166/102; PULSE 83; RESP 30; TEMP 36.4; O2SAT 96; BMI 27.3
--- NOTE | 2020-03-05 21:07 | XRR_ITS ---
PROCEDURE INFORMATION: Exam: XR Chest, 1 View Exam date and time: 03/05/2020 9:29 PM Age: 74 years old Clinical indication: Chest pain; Type not specified; Prior surgery; Surgery type: Hernia; Additional info: KWESI Lora TECHNIQUE: Imaging protocol: XR of the chest Views: 1 view. COMPARISON: CR XR chest 1V portable [id number] 02/03/2020 7:41 PM FINDINGS: Lungs: There is a tiny benign calcified granuloma in the right upper lobe. Otherwise lungs are clear. Pleural space: Unremarkable. No pleural effusion. No pneumothorax. Heart/Mediastinum: Unremarkable. No cardiomegaly. Bones/joints: Unremarkable. XR/XR chest 1V portable [id number] IMPRESSION: No acute abnormality is seen in the chest.
--- NOTE | 2020-03-05 21:07 | ECG_ITS ---
[facility] Test Date: 2020-03-05 Pat Name: Isaac Simpson Department: Room: Gender: Male Teletype Or Varitype Keyboard Operator: stephanie : 1945 Requested By: Harinder Sandoval Order Number: [id number] Heron MD: Florina Alvares M.D. Measurements Intervals [place] Rate: 73 P: 60 CA: 213 QRS: -57 QRSD: 128 T: 128 QT: 376 QTc: 417 Interpretive Statements SINUS RHYTHM WITH FIRST DEGREE AV BLOCK LEFT ANTERIOR FASCICULAR BLOCK [QRS AXIS <= -45, QR IN I, RS IN II] INFERIOR MYOCARDIAL INFARCTION [40+ ms Q WAVE AND/OR ST/T ABNORMALITY IN II/aVF], PROBABLY OLD Compared to ECG 02/03/2020 21:52:05 No significant changes Electronically Signed On 03-06-2020 21:37:53 CDT by Florina Alvaers M.D. [id number]
[2020-03-05 21:16] LABS: Basophils # 0.1 10^3/uL (0.0-0.1); Eosinophils # 0.1 10^3/uL (0.0-0.8); Eosinophils % 1.6 %; Hematocrit 47.5 % (42.0-52.0); Hemoglobin 15.6 g/dL (11.7-16.6); Lymphocytes # 2.7 10^3/uL (0.8-4.8); Lymphocytes % 39.9 %; Mean Corpuscular HGB Conc 32.8 g/dL (30.0-36.0); Mean Corpuscular Hemoglobin 31.8 pg (28.0-34.0); Mean Corpuscular Volume 96.9 fL (80-94); Monocytes # 0.5 10^3/uL (0.2-0.9); Monocytes % 8.1 %; Neutrophils # 3.25 10^3/uL (1.8-7.7); Neutrophils % 48.7 %; Nucleated Red Blood Cells % 0 %; Platelet Count 254 10^3/cmm (130-400); Red Cell Distribution Width 12.4 % (12.1-15.1); White Blood Count 6.7 10^3/uL (4.0-10.0)
[2020-03-05 21:35] LABS: Partial Thromboplastin Time 32.6 SECONDS (23.9-36.7)
[2020-03-05 21:40] LABS: Troponin(5th) Baseline 12 ng/L (0-15)
[2020-03-05] MEDS: LORazepam 2 mg/mL INJ 1 mL 1 MG IVP (21:43)
[2020-03-05] MEDS: albuterol 8 gm MDI 4 PUFF INHALATION (21:45)
[2020-03-05 21:47] VITALS: PULSE 93; RESP 22; O2SAT 93
[2020-03-05 21:49] LABS: Alanine Aminotransferase 23 U/L (0-41); Albumin Level 4.1 g/dL (3.5-5.2); Alkaline Phosphatase 102 IU/L (40-130); Anion Gap 17.4 (5-19); Aspartate Amino Transferase 20 U/L (0-40); Blood Urea Nitrogen 17 mg/dL (8-23); Calcium 9.3 mg/dL (8.5-10.5); Carbon Dioxide 27 mmol/L (22-29); Chloride 101 mmol/L (98-107); Creatine Phosphokinase 73 U/L (39-308); Globulin 2.3 g/dL (1.3-4.6); Glucose 174 mg/dL (65-115); NT Pro B Type Natriuretic Pept 228 pg/mL (0-125); Osmolality Calculated 298 mOsm/kg (285-295); Potassium 4.4 mmol/L (3.5-5.1); Sodium 141 mmol/L (136-145); Total Bilirubin 0.2 mg/dL (0.15-1.2); Total Protein 6.4 g/dL (6.6-8.7)
--- NOTE | 2020-03-05 21:58 | ED_ITS ---
HPI - Altered Mental Status General: Chief Complaint: Altered Mental Status Stated Complaint: AMS Time Seen by Provider: 03/05/20 21:07 History of Present Illness: HPI narrative: 74-year-old man with a history of dementia. He presents after an episode at home, where he sat up and yelled I am going to a few times. His became worried, and called 911. He has been medically stable. He is confused, but at his baseline. Currently he does not have any specific complaints. He states he is not in pain. MD complaint: altered mental status and other Onset (ago): minute(s) Timing confirmed by: spouse Severity: moderate Consistency of symptoms: Unknown Associated symptoms: Reports no associated symptoms Review of Systems General: Reports: Other (Review of systems limited by medical condition. Patient has dementia.) Const: Denies: fever(s) Card: Denies: chest pain Resp: Denies: dyspnea GI: Denies: abdominal pain : Denies: difficulty urinating Musc: Denies: neck pain Skin/Breast: Denies: rash or erythema Neuro: Denies: headache(s) Psych: Reports: anxiety PFSH ED PFSH: Medical History (Updated 03/06/20 @ 00:01 by Harinder Sanchez DO) COPD (chronic obstructive pulmonary disease) Dementia GERD (gastroesophageal reflux disease) History of hypertension Hyperlipidemia Surgical History History of hernia surgery Family History Father CAD (coronary artery disease) Social History Smoking and tobacco status: former smoker Alcohol intake: never Physical Exam Const: GENERAL APPEARANCE: frail appearing ORIENTATION/CONSCIOUSNESS: Yes oriented to person; not oriented to place and not oriented to time HENMT: COMMON NORMALS: normocephalic, external ears normal and Normal external nose present HEAD & SCALP: normocephalic FACE & SINUS: normal facial exam NOSE: Normal external nose present and No nasal discharge present EXTERNAL EAR: Yes external ears normal Eye: COMMON NORMALS: Equal, round and reactive pupils present, EOMs intact bilaterally and conjunctivae normal EYELID: eyelids normal CONJUNCTIVA: Yes conjunctivae normal PUPIL: Yes Equal, round and reactive pupils present Neck/C-Spine: GENERAL: No tracheal deviation Chest: COMMONS NORMALS: normal inspection of the chest CHEST: No tenderness Resp: EFFORT & INSPECTION: No tachypneic, No respiratory distress, No retractions, No uses accessory muscles and No tracheal deviation AUSCULTATION: no rhonchi, wheezes and lung sounds not diminished Cardio: COMMON NORMALS: regular rate and regular rhythm RATE: regular rate RHYTHM: regular rhythm HEART SOUNDS: no murmurs PERIPHERAL PULSES: radial pulses present GI: INSPECTION: No abdominal distension AUSCULTATION: No Hyperactive bowel sounds present and No Hypoactive bowel sounds present PALPATION: No Guarding due to palpation present (GI) and No Rigid due to palpation PERCUSSION: no dullness to percussion and no tympanic to percussion Neuro: SENSORIUM/ORIENTATION: Yes oriented to person, No oriented to place and No oriented to time Skin: COMMON NORMALS: no rashes or lesions noted GENERAL SKIN EXAM: no rashes or lesions noted Course Vital Signs: Vital signs: Vital Signs Temperature 97.6 F 03/05/20 20:59 Pulse Rate 80 03/06/20 00:19 Respiratory Rate 16 03/06/20 00:19 Blood Pressure 133/65 03/06/20 00:19 Pulse Oximetry 94 03/06/20 00:19 MDM - Altered Mental Status MDM Narrative: Medical decision making narrative: 74-year-old man with a history of dementia. He had said that he thought he was going to at home, which I believe scared his . EMS was called. He is essentially asymptomatic but otherwise confused on arrival here. He is not in any pain. His chest x-ray is clear. His white blood cell count 6.7. Hemoglobin 15.6. His creatinine is 1.9 which is near his baseline for the past few months. His bicarbonate level is 27. He does appear mildly dry. His first troponin and EKG are unremarkable. His urinalysis is negative. He will be allowed home. He has been calm and cooperative here. Lab Data: Labs: Lab Results 03/05/20 03/05/20 03/05/20 Range/Units 20:37 20:37 20:37 WBC 6.7 (4.0-10.0) 10^3/ uL RBC 4.90 (4.1-5.3) 10^6/u L Hgb 15.6 (11.7-16.6) g/dL Hct 47.5 (42.0-52.0) % MCV 96.9 H (80-94) fL MCH 31.8 (28.0-34.0) pg MCHC 32.8 (30.0-36.0) g/dL RDW 12.4 (12.1-15.1) % Plt Count 254 (130-400) 10^3/c mm MPV 11.0 H (7.4-10.4) fL Neut % (Auto) 48.7 % Lymph % (Auto) 39.9 % [place] % (Auto) 8.1 % Eos % (Auto) 1.6 % Baso % (Auto) 1.0 % Neut # (Auto) 3.25 (1.8-7.7) 10^3/u L Lymph # (Auto) 2.7 (0.8-4.8) 10^3/u L [place] # (Auto) 0.5 (0.2-0.9) 10^3/u L Eos # (Auto) 0.1 (0.0-0.8) 10^3/u L Baso # (Auto) 0.1 (0.0-0.1) 10^3/u L Nucleated RBC % (a uto) 0 % Nucleated RBCs # 0.0 /100WBC PT 14.50 (12.1-14.9) SECO NDS INR 1.10 (0.8-1.2) APTT 32.6 (23.9-36.7) SECO NDS Sodium 141 (136-145) mmol/L Potassium 4.4 (3.5-5.1) mmol/L Chloride 101 (98-107) mmol/L Carbon Dioxide 27 (22-29) mmol/L Anion Gap 17.4 (5-19) BUN 17 (8-23) mg/dL Creatinine 1.9 H (0.7-1.2) mg/dL GFR Calculation Not Reportable Glucose 174 H (65-115) mg/dL Calculated Osmolal ity 298 H (285-295) mOsm/k g Calcium 9.3 (8.5-10.5) mg/dL Total Bilirubin 0.2 (0.15-1.2) mg/dL AST 20 (0-40) U/L ALT 23 (0-41) U/L Alkaline Phosphata se 102 (40-130) IU/L Creatine Kinase 73 (39-308) U/L Troponin T Baselin e (0-15) ng/L Troponin T 120 Min [place] (0-15) ng/L Delta Troponin T (0-10) ABS# NT-Pro-B Natriuret Pep 228 H (0-125) pg/mL Total Protein 6.4 L (6.6-8.7) g/dL Albumin 4.1 (3.5-5.2) g/dL Globulin 2.3 (1.3-4.6) g/dL Urine Color (Yellow) Urine Appearance (CLEAR) Urine pH (5-7) Ur Specific Gravit y (1.005-1.030) Urine Protein (Negative) Urine Glucose (UA) (Normal) Urine Ketones (Negative) Urine Blood (Negative) Urine Nitrate (Negative) Urine Bilirubin (Negative) Urine Urobilinogen (Negative) mg/dL Ur Leukocyte Sandra ase (Negative) 03/05/20 03/05/20 03/05/20 Range/Units 20:37 22:52 23:40 WBC (4.0-10.0) 10^3/ uL RBC (4.1-5.3) 10^6/u L Hgb (11.7-16.6) g/dL Hct (42.0-52.0) % MCV (80-94) fL MCH (28.0-34.0) pg MCHC (30.0-36.0) g/dL RDW (12.1-15.1) % Plt Count (130-400) 10^3/c mm MPV (7.4-10.4) fL Neut % (Auto) % Lymph % (Auto) % [place] % (Auto) % Eos % (Auto) % Baso % (Auto) % Neut # (Auto) (1.8-7.7) 10^3/u L Lymph # (Auto) (0.8-4.8) 10^3/u L [place] # (Auto) (0.2-0.9) 10^3/u L Eos # (Auto) (0.0-0.8) 10^3/u L Baso # (Auto) (0.0-0.1) 10^3/u L Nucleated RBC % (a uto) % Nucleated RBCs # /100WBC PT (12.1-14.9) SECO NDS INR (0.8-1.2) APTT (23.9-36.7) SECO NDS Sodium (136-145) mmol/L Potassium (3.5-5.1) mmol/L Chloride (98-107) mmol/L Carbon Dioxide (22-29) mmol/L Anion Gap (5-19) BUN (8-23) mg/dL Creatinine (0.7-1.2) mg/dL GFR Calculation Glucose (65-115) mg/dL Calculated Osmolal ity (285-295) mOsm/k g Calcium (8.5-10.5) mg/dL Total Bilirubin (0.15-1.2) mg/dL AST (0-40) U/L ALT (0-41) U/L Alkaline Phosphata se (40-130) IU/L Creatine Kinase (39-308) U/L Troponin T Baselin e 12 (0-15) ng/L Troponin T 120 Min [place] 13.90 (0-15) ng/L Delta Troponin T 1.90 (0-10) ABS# NT-Pro-B Natriuret Pep (0-125) pg/mL Total Protein (6.6-8.7) g/dL Albumin (3.5-5.2) g/dL Globulin (1.3-4.6) g/dL Urine Color Yellow (Yellow) Urine Appearance Clear (CLEAR) Urine pH 5 (5-7) Ur Specific Gravit y 1.015 (1.005-1.030) Urine Protein Neg (Negative) Urine Glucose (UA) Norm (Normal) Urine Ketones Negative (Negative) Urine Blood Neg (Negative) Urine Nitrate Negative (Negative) Urine Bilirubin Neg (Negative) Urine Urobilinogen Norm (Negative) mg/dL Ur Leukocyte Sandra ase Negative (Negative) Discharge Plan Discharge Patient Disposition: Home Clinical Impression: Altered mental status Qualifiers: Altered mental status type: disorientation Qualified Code(s): R41.0 - Disorientation, unspecified Dementia Qualifiers: Dementia type: Alzheimer's disease Condition: Stable Prescriptions: No Action Eliquis 5 mg tablet 5 mg PO Q12H Qty: 60 RF: 6 lisinopril 10 mg tablet 10 mg PO DAILY Qty: 30 RF: 3 furosemide 40 mg tablet 40 mg PO DAILY@0800 Qty: 30 RF: 5 potassium chloride 10 mEq tablet extended release 10 meq PO DAILY Qty: 30 RF: 5 metoprolol succinate 100 mg tablet extended release 24 hr 100 mg PO DAILY Qty: 30 RF: 3 tamsulosin [Flomax] 0.4 mg Capsule 0.4 mg PO DAILY RF: 0 mirtazapine [Remeron] 30 mg Tablet 30 mg PO BEDTIME RF: 0 memantine 10 mg Tablet 10 mg PO BID RF: 0 Trelegy Ellipta 100-62.5-25 mcg Blister With Device 1 inh INHALATION DAILY RF: 0 donepezil 10 mg tablet 10 mg PO DAILY RF: 0 pantoprazole 40 mg tablet,delayed release (DR/EC) 40 mg PO DAILY RF: 0 aspirin 81 mg Tablet,Chewable 81 mg PO DAILY RF: 0 Discharge Orders: Discharge Order (Routine); Ordered 03/06/20 Ordered By: Harinder Sanchez Referrals: Quintin Montes MD [Primary Care Provider] - 4-7 days Discharge Diet: Usual diet Patient Instructions: Dementia (ED) Activity Restrictions/Additional Instructions: Return for chest discomfort, shortness of breath, fever, worsening confusion, o ther concerning symptoms. 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
--- NOTE | 2020-03-05 23:07 | ECG_ITS ---
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 Measurements Intervals [place] Rate: 81 P: 55 [place]: 211 QRS: -59 QRSD: 130 T: 106 QT: 370 QTc: 432 Interpretive Statements SINUS RHYTHM WITH FIRST DEGREE AV BLOCK LEFT ANTERIOR FASCICULAR BLOCK [QRS AXIS <= -45, QR IN I, RS IN II] INFERIOR MYOCARDIAL INFARCTION [40+ ms Q WAVE AND/OR ST/T ABNORMALITY IN II/aVF], OF INDETERMINATE AGE Compared to ECG 03/05/2020 21:38:37 No significant changes Electronically Signed On 03-06-2020 21:45:38 CDT by Florina Alvares M.D. [id number]
[2020-03-05 23:23] LABS: Add Urine Microscopic? NO
[2020-03-05 23:27] LABS: Bilirubin Urine Neg (Negative); Blood Urine Neg (Negative); Glucose Urine UA Norm (Normal); Ketones Urine Negative (Negative); Leukocyte Esterase Urine Negative (Negative); Nitrate Urine Negative (Negative); Protein Urine Neg (Negative); Specific Gravity, Urine 1.015 (1.005-1.030); Urine Appearance Clear (CLEAR); Urine Color Yellow (Yellow); Urobilinogen Urine Norm (Negative); pH Urine 5 (5-7)
[2020-03-06 00:19] VITALS: BP 133/65; PULSE 80; RESP 16; O2SAT 94
== END 2020-03-06 01:23 | disposition home or self-care (01) ==
PROVIDERS: Emergency Provider Emergency Medicine; PCP Family Medicine
DX: G30.9 Alzheimer's disease, unspecified (principal); F02.80 Dementia in other diseases classified elsewhere, unspecified severity, without behavioral disturbance, psychotic disturbance, mood disturbance, and anxiety; Z79.01 Long term (current) use of anticoagulants; Z79.82 Long term (current) use of aspirin; J44.9 Chronic obstructive pulmonary disease, unspecified; I10 Essential (primary) hypertension; E78.5 Hyperlipidemia, unspecified; Z87.891 Personal history of nicotine dependence
CPT/HCPCS: 12345; 71045; 80053; 81003; 82550; 83880; 84484; 85025; 85610; 85730; 93005; 94640; 96374; 96375; 99283; J2060; J3535

== ENCOUNTER 2020-05-08 20:43 | Emergency (ER) | payer MEDICARE, SELFPAY ==
[2020-05-08 20:54] VITALS: BP 161/101; PULSE 136; RESP 18; TEMP 36.6; O2SAT 95; BMI 24.7
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
[2020-05-08 21:34] LABS: Basophils % 0.4 %; Eosinophils % 0.1 %; Hematocrit 47.2 % (42.0-52.0); Hemoglobin 15.8 g/dL (11.7-16.6); Lymphocytes # 1.5 10^3/uL (0.8-4.8); Lymphocytes % 14.6 %; Mean Corpuscular HGB Conc 33.5 g/dL (30.0-36.0); Mean Corpuscular Hemoglobin 31.4 pg (28.0-34.0); Mean Corpuscular Volume 93.8 fL (80-94); Monocytes # 0.6 10^3/uL (0.2-0.9); Monocytes % 6.4 %; Neutrophils # 7.74 10^3/uL (1.8-7.7); Neutrophils % 78.2 %; Nucleated Red Blood Cells % 0 %; Platelet Count 206 10^3/cmm (130-400); Red Blood Count 5.03 10^6/uL (4.1-5.3); Red Cell Distribution Width 12.3 % (12.1-15.1); White Blood Count 9.9 10^3/uL (4.0-10.0)
[2020-05-08 21:48] LABS: Alanine Aminotransferase 21 U/L (0-41); Albumin Level 4.1 g/dL (3.5-5.2); Alkaline Phosphatase 98 IU/L (40-130); Anion Gap 14.9 (5-19); Aspartate Amino Transferase 20 U/L (0-40); Blood Urea Nitrogen 12 mg/dL (8-23); Calcium 9.2 mg/dL (8.5-10.5); Carbon Dioxide 25 mmol/L (22-29); Chloride 103 mmol/L (98-107); Globulin 2.9 g/dL (1.3-4.6); Glucose 125 mg/dL (65-115); Osmolality Calculated 289 mOsm/kg (285-295); Potassium 3.9 mmol/L (3.5-5.1); Sodium 139 mmol/L (136-145); Total Bilirubin 0.5 mg/dL (0.15-1.2)
[2020-05-08 21:49] LABS: Acetaminophen < 5.0 ug/mL (10-30); Alcohol Level < 10 mg/dL (0-10); Salicylate < 0.3 mg/dL (3-10)
[2020-05-08 22:49] LABS: Amphetamines Screen Urine Negative (Negative); Barbiturates Screen Urine Negative (Negative); Benzodiazepines Screen Urine Negative (Negative); Cocaine Screen Urine Negative (Negative); Opiate Screen Urine Negative (Negative); PCP Screen Urine Negative (Negative); THC Screen Urine Negative (Negative)
[2020-05-08 23:02] VITALS: BP 146/105; O2SAT 96
[2020-05-09 00:27] VITALS: BP 144/102; PULSE 117; O2SAT 95
[2020-05-09 02:46] LABS: SARS Covid-2 Antigen Negative (Negative)
[2020-05-09 04:35] VITALS: RESP 16; O2SAT 95
[2020-05-09] MEDS: metoprolol succinate ER (24 HR) 100 mg Tablet PO (05:10)
[2020-05-09 05:23] LABS: Add Urine Microscopic? YES; Bacteria Urine TRACE /hpf; Bilirubin Urine Neg (Negative); Blood Urine Neg (Negative); Glucose Urine UA Norm (Normal); Ketones Urine 1+ (Negative); Leukocyte Esterase Urine Negative (Negative); Nitrate Urine Negative (Negative); Protein Urine 1+ (Negative); RBC Urine RARE /hpf (0-2); Specific Gravity, Urine 1.015 (1.005-1.030); Squamous Epithelial Cell Urine RARE /hpf (0-5); Urine Appearance Hazy (CLEAR); Urine Color Yellow (Yellow); Urobilinogen Urine Norm (Negative); WBC Urine RARE /hpf (0-5); pH Urine 5 (5-7)
[2020-05-09 05:50] VITALS: BP 132/81; PULSE 97; RESP 20; O2SAT 97
--- NOTE | 2020-05-09 05:56 | ECG_ITS ---
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 Measurements Intervals [place] Rate: 105 P: 73 NM: 199 QRS: -47 QRSD: 128 T: 118 QT: 372 QTc: 493 Interpretive Statements SINUS TACHYCARDIA LEFT ANTERIOR FASCICULAR BLOCK [QRS AXIS <= -45, QR IN I, RS IN II] POSSIBLE ANTERIOR MYOCARDIAL INFARCTION , OF INDETERMINATE AGE [30 ms Q WAVE IN V3/V4, OR R < 0.2 mV IN V4] INFERIOR MYOCARDIAL INFARCTION , PROBABLY OLD [40+ ms Q WAVE AND/OR ST/T ABNORMALITY IN II/aVF] MODERATE T-WAVE ABNORMALITY, CONSIDER LATERAL ISCHEMIA [-0.1+ mV T WAVE IN I/aVL/V5/V6] Compared to ECG 03/05/2020 23:43:18 T-wave abnormality now present Possible ischemia now present Sinus rhythm no longer present Electronically Signed On 05-09-2020 9:38:18 EDUCATION SALES CONSULTANT by Dagoberto Roldan M.D. [id number] f
--- NOTE | 2020-05-09 06:14 | PC.NURSE ---
[facility] called for update. Jordan states awaiting physician to return call at this time. Updated Jordan with new VS at this time.
[2020-05-09 10:54] VITALS: BP 137/66; PULSE 75; O2SAT 93
[2020-05-09 14:14] VITALS: BP 150/90; PULSE 92; RESP 22; O2SAT 98
== END 2020-05-09 15:10 ==
PROVIDERS: Emergency Medicine; Emergency Provider Emergency Medicine
DX: R45.850 Homicidal ideations (principal); Z79.01 Long term (current) use of anticoagulants; Z79.82 Long term (current) use of aspirin; J44.9 Chronic obstructive pulmonary disease, unspecified; F03.90 Unspecified dementia, unspecified severity, without behavioral disturbance, psychotic disturbance, mood disturbance, and anxiety; I10 Essential (primary) hypertension; E78.5 Hyperlipidemia, unspecified; Z87.891 Personal history of nicotine dependence; Z79.899 Other long term (current) drug therapy
CPT/HCPCS: 12345; 80053; 80306; 80307; 81001; 85025; 87426; 93005; 99284; 99285

== ENCOUNTER 2020-05-26 11:13 | Inpatient (IN) | payer MEDICARE, SELFPAY ==
[2020-05-26] VITALS (83 sets, daily range): BP systolic 74–178; BP diastolic 41–96; PULSE 76–154; RESP 16–39; TEMP 36.4; O2SAT 90–100; BMI 25.8
--- NOTE | 2020-05-26 11:20 | XR_ITS ---
WS: [id number] PORTABLE CHEST HISTORY: dyspnea/cough COMPARISON: 03/05/2020 Large bulla LEFT upper lobe. Benign granuloma RIGHT upper lobe. Since the prior examination progressi on of the interstitial thickening and coarsening within the mid and lower lung teixeira. No dense areas of consolidation or pneumonia. No pleural effusion or pneumothorax. Cardiac size: Normal. Mediastinum/Aorta: Mild atherosclerosis aorta. No osseous abnormality seen. XR/XR chest 1V portable [id number] IMPRESSION: 1. New coarse and interstitial thickening and reticulations in the mid and low er lungs. Suspect superimposed edema or pneumonitis on patient's chronic lung d isease. 2. Mild atherosclerosis aorta.
--- NOTE | 2020-05-26 11:22 | ED_ITS ---
HPI - SOB/Dyspnea General: Chief Complaint: Shortness of Breath/Dyspnea Stated Complaint: SOB Time Seen by Provider: 05/26/20 11:18 History of Present Illness: HPI Narrative: 74-year-old male presents emergency room complaining of severe shortness of breath began suddenly today. He denies any chest pain he does have a history of congestive heart failure. He is on anticoagulant for atrial fibrillation. He usually is not on oxygen and is requiring some oxygen. He has a history of COPD. He denies chest or abdominal pain. When first encountered him he was extremely anxious and tachypneic. Denies vomiting or diarrhea. MD elicited complaint: shortness of breath and cough Pertinent past history: COPD, congestive heart failure and other (Atrial fibrillation) Onset (ago): minute(s) Timing: constant Severity: severe Exacerbating factors: exertion and coughing Relieving factors: oxygen Known history of: COPD and congestive heart failure Associated symptoms: Deny abdominal pain, chest pain, fever(s), nausea, orthopnea or vomiting Treatment prior to arrival: none Review of Systems Const: Denies: fever(s), chills, body aches, change in appetite, fatigue or malaise Card: Denies: chest pain, edema, dyspnea on exertion or orthopnea Resp: Reports: dyspnea, non-productive cough and wheezing; Denies: productive cough GI: Denies: abdominal pain, nausea, vomiting, hematemesis, coffee ground emesis, diarrhea, constipation, bloating, hematochezia or melena : Denies: flank pain, dysuria, urinary frequency or urinary urgency Skin/Breast: Denies: rash or pruritus PFSH ED PFSH: Medical History COPD (chronic obstructive pulmonary disease) -not oxygen dependent Dementia GERD (gastroesophageal reflux disease) History of hypertension Hyperlipidemia Surgical History History of hernia surgery Family History Father CAD (coronary artery disease) Social History Smoking and tobacco status: former smoker Alcohol intake: never Substance/Drug Use: never Physical Exam Const: COMMON NORMALS: no acute distress GENERAL APPEARANCE: cooperative and comfortable ORIENTATION/CONSCIOUSNESS: Yes awake, Yes oriented to person, Yes oriented to place and Yes oriented to time HENMT: COMMON NORMALS: normocephalic, atraumatic and hearing grossly normal bilaterally HEAD & SCALP: normocephalic and atraumatic Neck/C-Spine: COMMON NORMALS: no JVD Resp: AUSCULTATION: rhonchi, wheezes and diminished lung sounds Cardio: COMMON NORMALS: no JVD, regular rate, regular rhythm and No murmurs present (Cardio) RATE: regular rate RHYTHM: regular rhythm GI: COMMON NORMALS: Soft to palpation and No hepatosplenomegaly present AUSCULTATION: Yes normoactive bowel sounds PALPATION: Yes Soft to palpation, No Tenderness to palpation present (GI), No Guarding due to palpation present (GI) and Yes No hepatosplenomegaly present Extremity: COMMON NORMALS: normal to inspection, capillary refill normal, no clubbing, cyanosis or edema, no calf tenderness and no pedal edema Neuro: SENSORIUM/ORIENTATION: Yes oriented to person, Yes oriented to place and Yes oriented to time Skin: COMMON NORMALS: no rashes or lesions noted GENERAL SKIN EXAM: no rashes or lesions noted Course Vital Signs: Vital signs: Vital Signs Pulse Rate 94 05/26/20 14:29 Respiratory Rate 16 05/26/20 14:00 Blood Pressure 87/64 05/26/20 14:00 Pulse Oximetry 99 05/26/20 14:29 MDM - SOB/Dyspnea MDM Narrative: Medical decision making narrative: After we worked the patient up and were going to admit for mild COPD exacerbation patient had a witnessed seizure with Dr. Escobar at the bedside then had another one after. It seemed to mostly involve the right side. He was extremely confused postictally. I suspect he was postictal when he first arrived although the sister did not describe anything that sounded like a seizure when she was here. He was given Ativan and then loaded with Keppra and another little episode shortly after the Keppra and was given more Ativan. Dr. Oliva is going to consult Dr. Green and place patient in the ICU. She does have a pneumonia but it appears to be rather mild and I think it is incidental and not his primary problem today. Lab Data: Labs: Lab Results 01/01/0605/26/20 05/26/20 Range/Units 11:20 11:20 11:20 WBC 8.4 (4.0-10.0) 10^3/ uL RBC 5.06 (4.1-5.3) 10^6/u L Hgb 15.9 (11.7-16.6) g/dL Hct 48.4 (42.0-52.0) % MCV 95.7 H (80-94) fL MCH 31.4 (28.0-34.0) pg MCHC 32.9 (30.0-36.0) g/dL RDW 12.0 L (12.1-15.1) % Plt Count 232 (130-400) 10^3/c mm MPV 11.1 H (7.4-10.4) fL Neut % (Auto) 53.0 % Lymph % (Auto) 38.2 % Mclean % (Auto) 6.4 % Eos % (Auto) 1.2 % Baso % (Auto) 0.8 % Neut # (Auto) 4.47 (1.8-7.7) 10^3/u L Lymph # (Auto) 3.2 (0.8-4.8) 10^3/u L Mclean # (Auto) 0.5 (0.2-0.9) 10^3/u L Eos # (Auto) 0.1 (0.0-0.8) 10^3/u L Baso # (Auto) 0.1 (0.0-0.1) 10^3/u L Nucleated RBC % (a uto) 0 % Nucleated RBCs # 0.0 /100WBC D-Dimer Cancelled Specimen Type Sample Site ABG pH (7.35-7.45) ABG pCO2 (35-45) mmHg ABG pO2 (80.0-100.0) mmH g ABG HCO3 (22-26) mmol/L ABG O2 Saturation ABG Base Excess (-2.0-2.0) mmol/ L Juan Test A-a O2 Gradient (5-10) mmHg Hematocrit (42-52) % Hgb O2 Saturation (95-100) % Carboxyhemoglobin (0.4-20.1) %THgb Methemoglobin (0.4-1.5) % Total Hemoglobin (14-18) g/dL Ionized Calcium (1.1-1.4) mmol/L O2 Delivery Device O2 Liters/Min % FiO2 % Data Center Manager ID Sodium (136-145) mmol/L Potassium (3.5-5.1) mmol/L Chloride (98-107) mmol/L Carbon Dioxide (22-29) mmol/L Anion Gap (5-19) BUN (8-23) mg/dL Creatinine (0.7-1.2) mg/dL GFR Calculation Glucose (65-115) mg/dL Calculated Osmolal ity (285-295) mOsm/k g Lactic Acid 2.6 H (0.5-2.2) mmol/L Lactic Acid (Sepsi s) (0.5-2.2) mmol/L Calcium (8.5-10.5) mg/dL Magnesium (1.7-2.3) mg/dL Total Bilirubin (0.15-1.2) mg/dL AST (0-40) U/L ALT (0-41) U/L Alkaline Phosphata se (40-130) IU/L Creatine Kinase (39-308) U/L Troponin T Baselin e (0-15) ng/L Troponin T 120 Min [place] (0-15) ng/L Delta Troponin T (0-10) ABS# Total Protein (6.6-8.7) g/dL Albumin (3.5-5.2) g/dL Globulin (1.3-4.6) g/dL Serum Ketones (Negative) SARS-CoV-2 Ag (Rap id) (Negative) 05/26/20 05/26/20 05/26/20 Range/Units 11:20 11:20 11:20 WBC (4.0-10.0) 10^3/ uL RBC (4.1-5.3) 10^6/u L Hgb (11.7-16.6) g/dL Hct (42.0-52.0) % MCV (80-94) fL MCH (28.0-34.0) pg MCHC (30.0-36.0) g/dL RDW (12.1-15.1) % Plt Count (130-400) 10^3/c mm MPV (7.4-10.4) fL Neut % (Auto) % Lymph % (Auto) % Mclean % (Auto) % Eos % (Auto) % Baso % (Auto) % Neut # (Auto) (1.8-7.7) 10^3/u L Lymph # (Auto) (0.8-4.8) 10^3/u L Mclean # (Auto) (0.2-0.9) 10^3/u L Eos # (Auto) (0.0-0.8) 10^3/u L Baso # (Auto) (0.0-0.1) 10^3/u L Nucleated RBC % (a uto) % Nucleated RBCs # /100WBC D-Dimer Specimen Type Sample Site ABG pH (7.35-7.45) ABG pCO2 (35-45) mmHg ABG pO2 (80.0-100.0) mmH g ABG HCO3 (22-26) mmol/L ABG O2 Saturation ABG Base Excess (-2.0-2.0) mmol/ L Juan Test A-a O2 Gradient (5-10) mmHg Hematocrit (42-52) % Hgb O2 Saturation (95-100) % Carboxyhemoglobin (0.4-20.1) %THgb Methemoglobin (0.4-1.5) % Total Hemoglobin (14-18) g/dL Ionized Calcium (1.1-1.4) mmol/L O2 Delivery Device O2 Liters/Min % FiO2 % Data Center Manager ID Sodium 138 (136-145) mmol/L Potassium 4.1 (3.5-5.1) mmol/L Chloride 100 (98-107) mmol/L Carbon Dioxide 23 (22-29) mmol/L Anion Gap 19.1 H (5-19) BUN 16 (8-23) mg/dL Creatinine 1.8 H (0.7-1.2) mg/dL GFR Calculation Not Reportable Glucose 154 H (65-115) mg/dL Calculated Osmolal ity 290 (285-295) mOsm/k g Lactic Acid (0.5-2.2) mmol/L Lactic Acid (Sepsi s) (0.5-2.2) mmol/L Calcium 9.1 (8.5-10.5) mg/dL Magnesium 2.1 (1.7-2.3) mg/dL Total Bilirubin 0.5 (0.15-1.2) mg/dL AST 19 (0-40) U/L ALT 15 (0-41) U/L Alkaline Phosphata se 114 (40-130) IU/L Creatine Kinase 123 (39-308) U/L Troponin T Baselin e 24 H (0-15) ng/L Troponin T 120 Min [place] (0-15) ng/L Delta Troponin T (0-10) ABS# Total Protein 6.9 (6.6-8.7) g/dL Albumin 4.4 (3.5-5.2) g/dL Globulin 2.5 (1.3-4.6) g/dL Serum Ketones Negative (Negative) SARS-CoV-2 Ag (Rap id) (Negative) 05/26/20 05/26/20 05/26/20 Range/Units 11:24 11:25 12:19 WBC (4.0-10.0) 10^3/ uL RBC (4.1-5.3) 10^6/u L Hgb (11.7-16.6) g/dL Hct (42.0-52.0) % MCV (80-94) fL MCH (28.0-34.0) pg MCHC (30.0-36.0) g/dL RDW (12.1-15.1) % Plt Count (130-400) 10^3/c mm MPV (7.4-10.4) fL Neut % (Auto) % Lymph % (Auto) % Mclean % (Auto) % Eos % (Auto) % Baso % (Auto) % Neut # (Auto) (1.8-7.7) 10^3/u L Lymph # (Auto) (0.8-4.8) 10^3/u L Mclean # (Auto) (0.2-0.9) 10^3/u L Eos # (Auto) (0.0-0.8) 10^3/u L Baso # (Auto) (0.0-0.1) 10^3/u L Nucleated RBC % (a uto) % Nucleated RBCs # /100WBC D-Dimer Cancelled Specimen Type Arterial Sample Site Radial, right ABG pH 7.48 H (7.35-7.45) ABG pCO2 36.0 (35-45) mmHg ABG pO2 81.7 (80.0-100.0) mmH g ABG HCO3 26.8 H (22-26) mmol/L ABG O2 Saturation 97.9 ABG Base Excess 3.5 H (-2.0-2.0) mmol/ L Juan Test Pos A-a O2 Gradient 16.2 H (5-10) mmHg Hematocrit 48.9 (42-52) % Hgb O2 Saturation 96.2 (95-100) % Carboxyhemoglobin 1.0 (0.4-20.1) %THgb Methemoglobin 0.8 (0.4-1.5) % Total Hemoglobin 16.0 (14-18) g/dL Ionized Calcium 1.2 (1.1-1.4) mmol/L O2 Delivery Device Bipap O2 Liters/Min 2.0 % FiO2 35.0 % Data Center Manager ID Ed Sodium 141.0 (136-145) mmol/L Potassium 3.9 (3.5-5.1) mmol/L Chloride (98-107) mmol/L Carbon Dioxide (22-29) mmol/L Anion Gap (5-19) BUN (8-23) mg/dL Creatinine (0.7-1.2) mg/dL GFR Calculation Glucose 137.0 H (65-115) mg/dL Calculated Osmolal ity (285-295) mOsm/k g Lactic Acid (0.5-2.2) mmol/L Lactic Acid (Sepsi s) (0.5-2.2) mmol/L Calcium (8.5-10.5) mg/dL Magnesium (1.7-2.3) mg/dL Total Bilirubin (0.15-1.2) mg/dL AST (0-40) U/L ALT (0-41) U/L Alkaline Phosphata se (40-130) IU/L Creatine Kinase (39-308) U/L Troponin T Baselin e (0-15) ng/L Troponin T 120 Min [place] (0-15) ng/L Delta Troponin T (0-10) ABS# Total Protein (6.6-8.7) g/dL Albumin (3.5-5.2) g/dL Globulin (1.3-4.6) g/dL Serum Ketones (Negative) SARS-CoV-2 Ag (Rap id) Negative (Negative) 05/26/20 05/26/20 05/26/20 Range/Units 13:00 13:55 14:00 WBC (4.0-10.0) 10^3/ uL RBC (4.1-5.3) 10^6/u L Hgb (11.7-16.6) g/dL Hct (42.0-52.0) % MCV (80-94) fL MCH (28.0-34.0) pg MCHC (30.0-36.0) g/dL RDW (12.1-15.1) % Plt Count (130-400) 10^3/c mm MPV (7.4-10.4) fL Neut % (Auto) % Lymph % (Auto) % Mclean % (Auto) % Eos % (Auto) % Baso % (Auto) % Neut # (Auto) (1.8-7.7) 10^3/u L Lymph # (Auto) (0.8-4.8) 10^3/u L Mclean # (Auto) (0.2-0.9) 10^3/u L Eos # (Auto) (0.0-0.8) 10^3/u L Baso # (Auto) (0.0-0.1) 10^3/u L Nucleated RBC % (a uto) % Nucleated RBCs # /100WBC D-Dimer 0.87 H Specimen Type Arterial Sample Site Radial, right ABG pH 7.41 (7.35-7.45) ABG pCO2 44.3 (35-45) mmHg ABG pO2 84.4 (80.0-100.0) mmH g ABG HCO3 27.8 H (22-26) mmol/L ABG O2 Saturation 97.0 ABG Base Excess 2.5 H (-2.0-2.0) mmol/ L Juan Test Pos A-a O2 Gradient 14.6 H (5-10) mmHg Hematocrit 45.2 (42-52) % Hgb O2 Saturation 94.3 L (95-100) % Carboxyhemoglobin 1.7 (0.4-20.1) %THgb Methemoglobin 1.2 (0.4-1.5) % Total Hemoglobin 14.7 (14-18) g/dL Ionized Calcium 1.2 (1.1-1.4) mmol/L O2 Delivery Device Bipap O2 Liters/Min % FiO2 35.0 % Data Center Manager ID Ed Sodium 139.0 (136-145) mmol/L Potassium 4.1 (3.5-5.1) mmol/L Chloride (98-107) mmol/L Carbon Dioxide (22-29) mmol/L Anion Gap (5-19) BUN (8-23) mg/dL Creatinine (0.7-1.2) mg/dL GFR Calculation Glucose 133.0 H (65-115) mg/dL Calculated Osmolal ity (285-295) mOsm/k g Lactic Acid (0.5-2.2) mmol/L Lactic Acid (Sepsi s) (0.5-2.2) mmol/L Calcium (8.5-10.5) mg/dL Magnesium (1.7-2.3) mg/dL Total Bilirubin (0.15-1.2) mg/dL AST (0-40) U/L ALT (0-41) U/L Alkaline Phosphata se (40-130) IU/L Creatine Kinase (39-308) U/L Troponin T Baselin e (0-15) ng/L Troponin T 120 Min [place] 20.57 H (0-15) ng/L Delta Troponin T -3.43 L (0-10) ABS# Total Protein (6.6-8.7) g/dL Albumin (3.5-5.2) g/dL Globulin (1.3-4.6) g/dL Serum Ketones (Negative) SARS-CoV-2 Ag (Rap id) (Negative) 05/26/20 Range/Units 14:00 WBC (4.0-10.0) 10^3/ uL RBC (4.1-5.3) 10^6/u L Hgb (11.7-16.6) g/dL Hct (42.0-52.0) % MCV (80-94) fL MCH (28.0-34.0) pg MCHC (30.0-36.0) g/dL RDW (12.1-15.1) % Plt Count (130-400) 10^3/c mm MPV (7.4-10.4) fL Neut % (Auto) % Lymph % (Auto) % Mclean % (Auto) % Eos % (Auto) % Baso % (Auto) % Neut # (Auto) (1.8-7.7) 10^3/u L Lymph # (Auto) (0.8-4.8) 10^3/u L Mclean # (Auto) (0.2-0.9) 10^3/u L Eos # (Auto) (0.0-0.8) 10^3/u L Baso # (Auto) (0.0-0.1) 10^3/u L Nucleated RBC % (a uto) % Nucleated RBCs # /100WBC D-Dimer Specimen Type Sample Site ABG pH (7.35-7.45) ABG pCO2 (35-45) mmHg ABG pO2 (80.0-100.0) mmH g ABG HCO3 (22-26) mmol/L ABG O2 Saturation ABG Base Excess (-2.0-2.0) mmol/ L Juan Test A-a O2 Gradient (5-10) mmHg Hematocrit (42-52) % Hgb O2 Saturation (95-100) % Carboxyhemoglobin (0.4-20.1) %THgb Methemoglobin (0.4-1.5) % Total Hemoglobin (14-18) g/dL Ionized Calcium (1.1-1.4) mmol/L O2 Delivery Device O2 Liters/Min % FiO2 % Data Center Manager ID Sodium (136-145) mmol/L Potassium (3.5-5.1) mmol/L Chloride (98-107) mmol/L Carbon Dioxide (22-29) mmol/L Anion Gap (5-19) BUN (8-23) mg/dL Creatinine (0.7-1.2) mg/dL GFR Calculation Glucose (65-115) mg/dL Calculated Osmolal ity (285-295) mOsm/k g Lactic Acid (0.5-2.2) mmol/L Lactic Acid (Sepsi s) 1.9 (0.5-2.2) mmol/L Calcium (8.5-10.5) mg/dL Magnesium (1.7-2.3) mg/dL Total Bilirubin (0.15-1.2) mg/dL AST (0-40) U/L ALT (0-41) U/L Alkaline Phosphata se (40-130) IU/L Creatine Kinase (39-308) U/L Troponin T Baselin e (0-15) ng/L Troponin T 120 Min [place] (0-15) ng/L Delta Troponin T (0-10) ABS# Total Protein (6.6-8.7) g/dL Albumin (3.5-5.2) g/dL Globulin (1.3-4.6) g/dL Serum Ketones (Negative) SARS-CoV-2 Ag (Rap id) (Negative) Discharge Plan Discharge Patient Disposition: Admitted As Inpatient Clinical Impression: COPD (chronic obstructive pulmonary disease), Pneumonia, Seizures Condition: Stable Coding Level of Care Code ED Loss Prevention Specialist for Yoli Fwd Exam Comprehensive
--- NOTE | 2020-05-26 11:25 | ECG_ITS ---
[facility] Test Date: 2020-05-26 Pat Name: Isaac Simpson Department: Room: Gender: Male Cokeman: : 1945 Requested By: Erik Barrett Order Number: [id number] Heron MD: Dagoberto Roldan M.D. Measurements Intervals [place] Rate: 92 P: 54 MA: 210 QRS: -34 QRSD: 134 T: 129 QT: 339 QTc: 419 Interpretive Statements SINUS RHYTHM WITH FIRST DEGREE AV BLOCK INTRAVENTRICULAR CONDUCTION DELAY [130+ ms QRS DURATION] INFERIOR MYOCARDIAL INFARCTION , OF INDETERMINATE AGE Compared to ECG 05/09/2020 02:55:13 First degree AV block now present Intraventricular conduction delay now present Sinus tachycardia no longer present Left anterior fascicular block no longer present T-wave abnormality no longer present Possible ischemia no longer present Myocardial infarct finding still present Electronically Signed On 05-26-2020 17:15:18 ELECTRONIC ASSEMBLY by Dagoberto Roldan M.D. [id number]
[2020-05-26 11:28] LABS: Basophils # 0.1 10^3/uL (0.0-0.1); Basophils % 0.8 %; Eosinophils # 0.1 10^3/uL (0.0-0.8); Eosinophils % 1.2 %; Hematocrit 48.4 % (42.0-52.0); Hemoglobin 15.9 g/dL (11.7-16.6); Lymphocytes # 3.2 10^3/uL (0.8-4.8); Lymphocytes % 38.2 %; Mean Corpuscular HGB Conc 32.9 g/dL (30.0-36.0); Mean Corpuscular Hemoglobin 31.4 pg (28.0-34.0); Mean Corpuscular Volume 95.7 fL (80-94); Mean Platelet Volume 11.1 fL (7.4-10.4); Monocytes # 0.5 10^3/uL (0.2-0.9); Monocytes % 6.4 %; Neutrophils # 4.47 10^3/uL (1.8-7.7); Nucleated Red Blood Cells % 0 %; Platelet Count 232 10^3/cmm (130-400); Red Blood Count 5.06 10^6/uL (4.1-5.3); White Blood Count 8.4 10^3/uL (4.0-10.0)
[2020-05-26 11:40] LABS: Blood Gas Allen Test Pos; Blood Gas Sample Type Arterial; HCO3 ABG 26.8 mmol/L (22-26); Ionized Calcium Level - ABG 1.2 mmol/L (1.1-1.4); Methemoglobin 0.8 % (0.4-1.5)
[2020-05-26 11:44] LABS: Ketone (Acetest) Serum Negative (Negative)
[2020-05-26 11:49] LABS: Lactic Sepsis W/Reflex 2.6 mmol/L (0.5-2.2)
[2020-05-26 11:51] LABS: Alanine Aminotransferase 15 U/L (0-41); Albumin Level 4.4 g/dL (3.5-5.2); Alkaline Phosphatase 114 IU/L (40-130); Blood Urea Nitrogen 16 mg/dL (8-23); Calcium 9.1 mg/dL (8.5-10.5); Carbon Dioxide 23 mmol/L (22-29); Chloride 100 mmol/L (98-107); Creatine Phosphokinase 123 U/L (39-308); Globulin 2.5 g/dL (1.3-4.6); Glucose 154 mg/dL (65-115); Magnesium 2.1 mg/dL (1.7-2.3); Osmolality Calculated 290 mOsm/kg (285-295); Sodium 138 mmol/L (136-145); Total Bilirubin 0.5 mg/dL (0.15-1.2); Total Protein 6.9 g/dL (6.6-8.7)
[2020-05-26 11:52] LABS: Troponin(5th) Baseline 24 ng/L (0-15)
[2020-05-26 11:53] LABS: Anion Gap 19.1 (5-19); Aspartate Amino Transferase 19 U/L (0-40); Potassium 4.1 mmol/L (3.5-5.1)
[2020-05-26 12:03] LABS: SARS Covid-2 Antigen Negative (Negative)
[2020-05-26 12:05] LABS: ABG PH Result 7.48 (7.35-7.45); Alveolar-Arterial Oxygen Gradi 16.2 mmHg (5-10); Arterial Blood Gas Hematocrit 48.9 % (42-52); Base Excess ABG 3.5 mmol/L (-2.0-2.0); Blood Gas Operator Identificat ED; Blood Gas Sample Site Radial, right; HGB O2 Sat 96.2 % (95-100); Oxygen Device BIPAP; Oxygen Saturation ABG 97.9; PO2 ABG 81.7 mmHg (80.0-100.0); Potassium Level - ABG 3.9 mmol/L (3.5-5.0)
[2020-05-26] MEDS: levofloxacin-dextrose 5 % 750 MG/150 ML PREMIX 100 MG IV (12:58)
[2020-05-26] MEDS: dexamethasone 4 mg/mL INJ 10 MG IVP (12:58)
[2020-05-26 13:13] LABS: Reflex Lactate Order REFLEX LACTIC ORDERD
--- NOTE | 2020-05-26 13:25 | ECG_ITS ---
[facility] Test Date: 2020-05-26 Pat Name: Isaac Simpson Department: Room: Gender: Male Functional Tester: : 1945 Requested By: Erik Barrett Order Number: [id number] Heron MD: Dagoberto Roldan M.D. Measurements Intervals [place] Rate: 101 P: 60 NC: 199 QRS: -43 QRSD: 122 T: 116 QT: 343 QTc: 445 Interpretive Statements SINUS TACHYCARDIA INFERIOR MYOCARDIAL INFARCTION , OF INDETERMINATE AGE [40+ ms Q WAVE AND/OR ST/T ABNORMALITY IN II/aVF] Compared to ECG 05/26/2020 11:15:18 Sinus rhythm no longer present First degree AV block no longer present Intraventricular conduction delay no longer present Myocardial infarct finding still present Electronically Signed On 05-26-2020 17:21:12 ROD PLACER by Dagoberto Roldan M.D. [id number]
[2020-05-26] MEDS: LORazepam 2 mg/mL INJ 1 mL ×2 (13:31→14:10)
--- NOTE | 2020-05-26 13:38 | PM.HP ---
Providers/Chief Complaint Admitting Physician: Nancy Escobar MD Primary Care Provider: Dr. Montes Chief Complaint: SOB History of Present Illness Isaac Simpson is a 74 year old male with PMHx noted below, presents from home having been brought to the ER by his sister after having had noted difficulty with his breathing. History is obtained from sister as patient is currently unable to provide much in the way of history with noted confusion and having had witnessed seizure episodes while in the ER. It seems that patient had previously been hospitalized in [place] and has been home for approximately 1 week; he had been admitted there for psychiatric evaluation. 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 Patient has had intermittent issues with shortness of breath particularly when anxious, is not currently oxygen dependent and with underlying dementia tends to wax and wane in terms of his baseline mental status. According to family they are unaware of prior history of seizures. Whenever he has shortness of breath he also complains of some chest discomfort, has had a nonproductive cough though no known exposure to COVID-19 positive individuals. He has an unstable gait at baseline and typically opts to ambulate independently rather than use his walker, no recent falls per his sister. Has a baseline hand tremor that seems to be exacerbated with anxiety or exertion. He has had previous cardiac work-up before including echo in July with ejection fraction of 30% and stress testing in November which was negative for any significant ischemia. He follows up with Dr. Willett. He recently had pulmonary function testing done. During my assessment in the ER, I witnessed jerking movements of his right upper extremity, head bobbing, inability to verbally respond to stimulation. Received 1 mg dose of Ativan and shortly thereafter had a repeat seizure-like episode, received an additional 1 mg dose of Ativan and started on [address] scan of the head ordered as well as repeat ABG in case of need for intubation. Work-up so far has included normal CBC, normal electrolytes, BUN of 16, creatinine of 1.8 lactic acid of 2.6, chest x-ray that is suggestive of either edema or pneumonitis superimposed on COPD. Rapid COVID-19 testing has been negative, PCR test is pending, he is currently on isolation precautions. Was in the process of obtaining history from sister over the phone patient was noted to have tachycardia and repeat seizure-like episode, received additional Ativan. Somnolent likely due to sedating effect of benzodiazepines. He will require close monitoring and ICU care at this time in light of what appears to be new onset seizure activity and need for close monitoring of his respiratory status. Review of Systems General: Reports: Other (obtained from sister) Const: Denies: fever(s) or chills Card: Reports: chest pain and dyspnea on exertion Resp: Reports: dyspnea Neuro: Reports: confusion (waxing and waning mental status), seizure-like activity (witnessed episodes in ED) and other (gait instability) Medications/Allergies Home Medications Medication Instructions Recorded Confirmed Last Taken Type aspirin 81 mg PO DAILY@79907/28/19 05/26/20 05/26/20 History donepezil 10 mg PO DAILY@79907/28/19 05/26/20 05/26/20 History pantoprazole 40 mg PO DAILY@79907/28/19 05/26/20 05/26/20 History apixaban 5 mg tablet 5 mg PO Q12H #60 tab 09/28/19 05/26/20 05/26/20 Rx furosemide 40 mg tablet 40 mg PO DAILY@0800 #30 tab 01/17/20 05/26/20 05/26/20 Rx memantine 10 mg PO BID@08,199902/03/20 05/26/20 05/26/20 History mirtazapine [Remeron] 30 mg PO BEDTIME@199902/03/20 05/26/20 05/25/20 History tamsulosin [Flomax] 0.4 mg PO DAILY@22002/03/20 05/26/20 05/25/20 History albuterol sulfate 2.5 mg INHALATION Q6H PRN 05/08/20 05/26/20 05/26/20 History polyethylene glycol 3350 [Miralax] 17 g PO DAILY PRN 05/08/20 05/26/20 Unknown History atorvastatin 10 mg PO DAILY@1700 05/26/20 05/26/20 05/25/20 History lisinopril 5 mg PO DAILY@79905/26/20 05/26/20 05/26/20 History metoprolol succinate 100 mg PO DAILY@79905/26/20 05/26/2008/21 History potassium chloride 10 meq PO DAILY@0800 05/26/20 05/26/20 05/26/20 History rosuvastatin 20 mg PO DAILY@1700 05/26/20 05/26/20 05/25/20 History Allergies Allergy/AdvReac Type Severity Reaction Status Date / Time codeine Allergy Unknown Verified 05/08/20 21:10 levofloxacin [From Levaquin] Allergy ADR-Dry Verified 05/26/20 17:24 Mucus Membranes PFSH Acute PFSH: Medical History COPD (chronic obstructive pulmonary disease) -not oxygen dependent Dementia GERD (gastroesophageal reflux disease) History of hypertension Hyperlipidemia Surgical History History of hernia surgery Family History Father CAD (coronary artery disease) Social History Smoking and tobacco status: former smoker Alcohol intake: never Substance/Drug Use: never Vitals/I&O/Wt Last Vital Signs Pulse 76 05/26/20 12:30 Resp 23 H 05/26/20 12:30 BP 125/78 05/26/20 12:30 Pulse Ox 93 05/26/20 12:30 Weight last 48 hrs Weight 77.111 kg Physical Exam Const: COMMON NORMALS: no acute distress and alert GENERAL APPEARANCE: cooperative, comfortable and frail appearing ORIENTATION/CONSCIOUSNESS: Yes awake and Yes confused HENMT: COMMON NORMALS: normocephalic, atraumatic, hearing grossly normal bilaterally and moist oral mucous membranes HEAD & SCALP: normocephalic and atraumatic Eye: COMMON NORMALS: Equal, round and reactive pupils present, EOMs intact bilaterally and conjunctivae normal CONJUNCTIVA: Yes conjunctivae normal PUPIL: Yes Equal, round and reactive pupils present Neck/C-Spine: COMMON NORMALS: full ROM GENERAL: Yes normal visual inspection and Yes trachea midline Resp: COMMON NORMALS: normal respiratory effort, No retractions and No use of accessory muscles EFFORT & INSPECTION: Yes able to speak in complete sentences, Yes symmetric chest movement and No tachypneic AUSCULTATION: diminished lung sounds OTHER: -currently on BiPAP, FiO2-35%, intermittently tachypneic Cardio: COMMON NORMALS: regular rate, regular rhythm, S1 normal heart sound present, S2 normal heart sound present and No murmurs present (Cardio) RATE: regular rate and tachycardic (intermittent with seizure activity) RHYTHM: regular rhythm HEART SOUNDS: S1 normal heart sound present and S2 normal heart sound present GI: COMMON NORMALS: Normal to inspection, nondistended, normoactive bowel sounds present, Soft to palpation and non-tender PALPATION: Yes Soft to palpation : BLADDER/KIDNEY EXAM: Yes catheter in place Catheter type (Male): urethral Extremity: COMMON NORMALS: normal to inspection, full ROM and no clubbing, cyanosis or edema; negative for no pedal edema Neuro: COMMON NORMALS: moves all extremities, no focal motor deficits and no sensory deficits noted SENSORIUM/ORIENTATION: Yes alert and Yes somnolent OTHER: -witnessed seizure episodes x 3, rapid jerking movements of RUE, head bobbing, some tremors on L Psych: COMMON NORMALS: Normal thought process present, cooperative, normal affect and speech normal ATTITUDE: Yes calm and Yes agitated (intermittently) SPEECH: Yes normal speech THOUGHT PROCESS: confused Skin: COMMON NORMALS: no rashes or lesions noted, no jaundice, no petechiae and no mottling GENERAL SKIN EXAM: no rashes or lesions noted Data : 05/26/20 11:20 05/26/20 11:20 Micro: Microbiology 05/26/20 12:19 Blood Culture - Preliminary Blood SPECIMEN COLLECTED 05/26/20 11:24 Blood Culture - Preliminary Blood SPECIMEN COLLECTED A&P Assessment and plan (1) Seizures: -witnessed seizure episodes in ED -has received 5 mg of Ativan, 1000 mg of Keppra -continue Keppra per discussion with Dr. Green -CT head with no acute changes -seizure, aspiration, fall precautions -unclear if triggered by infection as per family, has no prior hx of this -currently protecting his airway with BiPAP use, low threshold for intubation if continued seizure activity or further decompensation -CPK wnl Status: Acute (2) Pneumonia: -initially presented with respiratory distress, on BiPAP -noted evidence of new coarse interstitial thickening and reticulations in the mid and lower lungs suspicious for edema versus pneumonitis -Received a dose of Levaquin with what appears to be phlebitis on left forearm shortly thereafter. Will treat with ceftriaxone and azithromycin at this time -continue to monitor respiratory status closely -Wean off BiPAP as tolerated -Currently afebrile, normotensive, no leukocytosis, lactic acid mildly elevated at 2.6 -rapid COVID-19 negative, PCR pending, isolation precautions Status: Acute Qualifiers: Laterality: right Lung location: unspecified part of lung Pneumonia type: due to unspecified organism Qualified Code(s): J18.9 - Pneumonia, unspecified organism (3) Congestive heart failure (CHF): -possible acute CHF exacerbation with noted respiratory decompensation -gentle IV diuresis for now -Echo (07/2019): EF=30%, probable global hypokinesis -daily weights, monitor Is & Os -monitor vital signs Status: Acute Qualifiers: Heart failure chronicity: acute on chronic Heart failure type: combined systolic and diastolic Qualified Code(s): I50.43 - Acute on chronic combined systolic (congestive) and diastolic (congestive) heart failure (4) Paroxysmal A-fib: -telemetry monitoring -resume metoprolol, Eliquis Status: Chronic (5) COPD (chronic obstructive pulmonary disease): -not oxygen dependent at baseline -currently requiring BiPAP -Neb treatments, IV steroids, empiric antibiotics -monitor respiratory status Status: Acute Qualifiers: COPD type: COPD with acute exacerbation Qualified Code(s): J44.1 - Chronic obstructive pulmonary disease with (acute) exacerbation (6) Sepsis: Status: Acute Qualifiers: Sepsis acute organ dysfunction status: without acute organ dysfunction Sepsis type: sepsis due to unspecified organism Qualified Code(s): A41.9 - Sepsis, unspecified organism (7) Dementia: -resume meds Status: Chronic Qualifiers: Alzheimer's disease onset: unspecified onset Dementia behavioral disturbance: with behavioral disturbance Dementia type: Alzheimer's disease Qualified Code(s): G30.9 - Alzheimer's disease, unspecified; F02.81 - Dementia in other diseases classified elsewhere with behavioral disturbance (8) GERD (gastroesophageal reflux disease): -on PPI Status: Chronic Qualifiers: Esophagitis presence: esophagitis presence not specified Qualified Code(s): K21.9 - Gastro-esophageal reflux disease without esophagitis (9) Hyperlipidemia: -on statin Status: Chronic Qualifiers: Hyperlipidemia type: mixed hyperlipidemia Qualified Code(s): E78.2 - Mixed hyperlipidemia (10) History of hypertension: -monitor vital signs -resume antihypertensives Status: Chronic Additional A&P Information -NPO for now -GI ppx with PPI -DVT ppx not needed as on Eliquis -Dispo: anticipate need for SNF, case management consulted -Code status: FULL code -admit to ICU due to need for close monitoring of respiratory status, given multiple seizure episodes Attestations Medical Necessity Statement*: Isaac Simpson's hospital stay will require greater than 2 midnights for treatment of pneumonia, new onset seizures; currently requiring BiPAP and close monitoring of cardiovascular and respiratory status. Time Spent in Patient Care: Greater than 35 minutes (>than 50% of time spent in counselling and/or direct pt care on unit). Coding Level of Care Code Acute Cloud Architect for g Fwd Exam Comprehensive Diagnoses Seizures R56.9 Pneumonia J18.9 Laterality: right Lung location: unspecified part of lung Pneumonia type: due to unspecified organism Congestive heart failure (CHF) I50.43 Heart failure chronicity: acute on chronic Heart failure type: combined systolic and diastolic Paroxysmal A-fib I48.0 COPD (chronic obstructive pulmonary disease) J44.1 COPD type: COPD with acute exacerbation Sepsis A41.9 Sepsis acute organ dysfunction status: without acute organ dysfunction Sepsis type: sepsis due to unspecified organism Dementia G30.9; F02.81 Alzheimer's disease onset: unspecified onset Dementia behavioral disturbance: with behavioral disturbance Dementia type: Alzheimer's disease GERD (gastroesophageal reflux disease) K21.9 Esophagitis presence: esophagitis presence not specified Hyperlipidemia E78.2 Hyperlipidemia type: mixed hyperlipidemia History of hypertension Z86.79
--- NOTE | 2020-05-26 13:42 | PC.NURSE ---
EKG done at 1340 and shown to ER doctor
[2020-05-26 13:50] LABS: D Dimer 0.87 ug/mIFEU (0-0.59)
--- NOTE | 2020-05-26 13:57 | CT_ITS ---
WS: [id number] CT HEAD NONCONTRAST HISTORY: seizures TECHNIQUE: Contiguous axial imaging performed through the brain in 2.5 mm imaging. Bone and soft tiss ue windows. Sagittal and coronal reformats reviewed. All CT scans at [facility] use at ast one of these dose optimization techniques: automated exposure control; mA and/or kV adjustment pe r patient size (includes targeted exams where dose is matched to clinical indication); or iterative r econstruction. DLP: 622.59 mGy.cm COMPARISON: 01/01/2019 No acute intracranial hemorrhage, midline shift or mass effect. Mild atrophy and mild chronic microvascular ischemic disease. No focal area of sulcal effacement. Tin y lacunar infarcts in the basal ganglia. Ventricles: Normal size with no hydrocephalus. Paranasal sinuses: As visualized are clear. Mastoid air cells: Well pneumatized. Calvarium and scalp: Skull is intact with no soft tissue edema or swelling. CT/CT head wo con* [id number] IMPRESSION: 1. No acute intracranial hemorrhage or edema. 2. Mild atrophy and mild chronic microvascular ischemic disease.
[2020-05-26 14:06] LABS: ABG PCO2 44.3 mmHg (35-45); ABG PH Result 7.41 (7.35-7.45); Alveolar-Arterial Oxygen Gradi 14.6 mmHg (5-10); Arterial Blood Gas Hematocrit 45.2 % (42-52); Base Excess ABG 2.5 mmol/L (-2.0-2.0); Blood Gas Allen Test Pos; Blood Gas Operator Identificat ED; Blood Gas Sample Site Radial, right; Blood Gas Sample Type Arterial; Carboxyhemoglobin 1.7 %THgb (0.4-20.1); HCO3 ABG 27.8 mmol/L (22-26); HGB O2 Sat 94.3 % (95-100); Ionized Calcium Level - ABG 1.2 mmol/L (1.1-1.4); Methemoglobin 1.2 % (0.4-1.5); Oxygen Device BIPAP; PO2 ABG 84.4 mmHg (80.0-100.0); Potassium Level - ABG 4.1 mmol/L (3.5-5.0); Total Hemoglobin 14.7 g/dL (14-18)
[2020-05-26] MEDS: diphenhydrAMINE 50 mg/mL SDV 1mL (14:10)
[2020-05-26 14:32] LABS: Lactic Acid level (Lactate) 1.9 mmol/L (0.5-2.2)
[2020-05-26 14:35] LABS: Troponin 5 2HR 20.57 ng/L (0-15)
[2020-05-26 14:43] LABS: Troponin 5 2HR Delta -3.43 ABS# (0-10)
[2020-05-26] MEDS: LORazepam 2 mg/mL INJ 1 mL 1 MG IVP (15:53)
--- NOTE | 2020-05-26 17:25 | ECG_ITS ---
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 Measurements Intervals [place] Rate: 84 P: 62 NV: 186 QRS: -50 QRSD: 130 T: 132 QT: 414 QTc: 490 Interpretive Statements SINUS RHYTHM INFERIOR MYOCARDIAL INFARCTION , PROBABLY OLD [40+ ms Q WAVE AND/OR ST/T ABNORMALITY IN II/aVF] MODERATE T-WAVE ABNORMALITY, CONSIDER LATERAL ISCHEMIA [-0.1+ mV T WAVE IN I/aVL/V5/V6] Compared to ECG 05/26/2020 13:37:13 T-wave abnormality now present Possible ischemia now present Sinus tachycardia no longer present Myocardial infarct finding still present Electronically Signed On 05-26-2020 17:17:00 TRIMMING CASER by Dagoberto Roldan M.D. [id number]
[2020-05-26 18:25] LABS: Troponin 5 6HR 20.36 ng/L (0-15)
[2020-05-26] MEDS: azithromycin 500 MG in sodium chloride 0.9% 250 ML 250 MG IV (18:28)
[2020-05-26] MEDS: sodium chloride 0.9% 1,000 ML 50 ML IV (18:29)
[2020-05-26] MEDS: apixaban 5 mg Tablet PO (18:36)
[2020-05-26 18:37] LABS: Troponin 5 6HR Delta -3.64 ng/L (0-12)
[2020-05-26 18:47] LABS: Add Urine Microscopic? NO
[2020-05-26 18:51] LABS: Bilirubin Urine Neg (Negative); Blood Urine Neg (Negative); Glucose Urine UA Norm (Normal); Ketones Urine Negative (Negative); Leukocyte Esterase Urine Negative (Negative); Nitrate Urine Negative (Negative); Protein Urine Neg (Negative); Urine Appearance Clear (CLEAR); Urine Color Straw (Yellow); Urobilinogen Urine Norm (Negative); pH Urine 6 (5-7)
[2020-05-26] MEDS: cefTRIAXone 1,000 MG in sodium chloride 0.9% (plus) 50 ML 100 MG IV (19:14)
[2020-05-26] MEDS: memantine 5 mg tablet 10 MG PO (19:15)
[2020-05-26] MEDS: mirtazapine 30 mg Tablet PO (19:15)
[2020-05-26] MEDS: FUROsemide 10 mg/mL SDV 2mL 20 MG IVP (20:30)
[2020-05-26] MEDS: atorvastatin 40 mg Tablet 20 MG PO (20:31)
[2020-05-26] MEDS: metoprolol tartrate 25 mg Tablet PO (20:31)
[2020-05-26] MEDS: tamsulosin 0.4 mg Capsule PO (21:01)
[2020-05-26] MEDS: LORazepam 2 mg/mL INJ 1 mL IVP (22:23)
[2020-05-27] VITALS (98 sets, daily range): BP systolic 81–149; BP diastolic 54–85; PULSE 58–92; RESP 12–34; TEMP 36.6–37.1; O2SAT 90–99
--- NOTE | 2020-05-27 00:26 | PC.NURSE ---
Patient very confused and attempts to remove lines and has gotten out of bed multiple times so far thus shift. Called Dr. Yeh and received recommendation for 1:1 sitter, called dope house operator helper Rosalind, no 1:1 sitters are currently available. Precedex titratable gtt order received. Continue care.
[2020-05-27] MEDS: dexmedetomidine 400 MCG in sodium chloride 0.9% (100 ml) 100 ML IV (01:44)
--- NOTE | 2020-05-27 02:09 | PC.NURSE ---
Patient started on precedex at approximatly 0200. Patient is resting in bed with eyes closed on bipap at this time. Patient still somewhat restless and needs redirection at times to remain safe and prevent falls. SCD's in place. Continue care.
[2020-05-27 03:47] LABS: Basophils % 0.1 %; Hematocrit 43.2 % (42.0-52.0); Hemoglobin 14.1 g/dL (11.7-16.6); Lymphocytes # 1.1 10^3/uL (0.8-4.8); Lymphocytes % 10.6 %; Mean Corpuscular HGB Conc 32.6 g/dL (30.0-36.0); Mean Corpuscular Hemoglobin 31.5 pg (28.0-34.0); Mean Corpuscular Volume 96.4 fL (80-94); Mean Platelet Volume 11.7 fL (7.4-10.4); Monocytes # 0.1 10^3/uL (0.2-0.9); Neutrophils # 9.23 10^3/uL (1.8-7.7); Neutrophils % 87.8 %; Nucleated Red Blood Cells % 0 %; Platelet Count 201 10^3/cmm (130-400); Red Blood Count 4.48 10^6/uL (4.1-5.3); White Blood Count 10.5 10^3/uL (4.0-10.0)
[2020-05-27 04:17] LABS: Alanine Aminotransferase 14 U/L (0-41); Albumin Level 3.7 g/dL (3.5-5.2); Alkaline Phosphatase 92 IU/L (40-130); Aspartate Amino Transferase 14 U/L (0-40); Blood Urea Nitrogen 24 mg/dL (8-23); Calcium 9.2 mg/dL (8.5-10.5); Carbon Dioxide 25 mmol/L (22-29); Chloride 101 mmol/L (98-107); Globulin 2.6 g/dL (1.3-4.6); Glucose 174 mg/dL (65-115); Osmolality Calculated 292 mOsm/kg (285-295); Sodium 137 mmol/L (136-145); Total Bilirubin 0.4 mg/dL (0.15-1.2); Total Protein 6.3 g/dL (6.6-8.7)
--- NOTE | 2020-05-27 06:16 | PC.NURSE ---
Patient refusing oral medications and spit out eliquis this morning. Continue care.
--- NOTE | 2020-05-27 07:48 | P.PN_ITS ---
Subjective Subjective: Interval history: Overnight, transitioned to 4 L NC, afebrile, normotensive, HR wnl. Due to noted agitation and confusion, was started on Precedex. Had 550 mL urine output overnight. Resting quietly in bed, able to wean off precedex and keep on NC. COVID-19 PCR negative, d/c isolation precautions. ST to re-evaluate tomorrow, patient too somnolent to participate. No noted seizure episodes overnight. Medications: Reviewed: Yes Medication Review Details: Active Medications Generic Name Dose Route Start Last Admin Trade Name Freq PRN Reason Stop Dose Admin Acetaminophen 650 mg 05/26/20 17:51 Acetaminophen 32 5 Mg Tablet PO Q6H PRN Mild/Mod Pain Or Temp >/= 101 Albuterol Sulfate 2 puff 05/26/20 18:18 Albuterol 8 Gm M di INHALATION Q4H.RESPIRATORY P RN SHORTNESS OF GI TH Apixaban 5 mg 05/26/20 19:00 05/27/20 06:13 Apixaban 5 Mg Ta blet PO Not Given Q12H GISSELLE Aspirin 81 mg 05/27/20 08:00 Aspirin 81 Mg Ch ew Tablet PO DAILY@0800 [facility] Atorvastatin Calci um 20 mg 05/26/20 21:00 05/26/20 20:31 Atorvastatin 40 Mg Tablet PO 20 mg BEDTIME G[facility] Administration Donepezil HCl 10 mg 05/27/20 08:00 Donepezil 5 Mg T ablet PO DAILY@0800 G[facility] Furosemide 20 mg 05/26/20 20:15 05/26/20 20:30 Furosemide 10 Mg /Ml Sdv 2ml IVP 20 mg Q12H GIS[facility] Administration Sodium Chloride 1,000 mls @ 50 ml s/hr 05/26/20 17:51 05/26/20 18:29 Sodium Chloride 0.9% IV 50 mls/hr .Q20H [facility] Administration Azithromycin 500 m g/ Sodium 250 mls @ 250 mls /hr 05/26/20 19:00 05/26/20 22:29 Chloride IV Infused Q24H [facility] Infusion Protocol Ceftriaxone Sodium 1,000 mg/ 50 mls @ 100 mls/ hr 05/26/20 20:00 05/26/20 22:19 Sodium Chloride IV Infused Q24H [facility] Infusion Protocol Levetiracetam 1,00 0 mg/ Sodium 110 mls @ 440 mls /hr 05/27/20 02:00 05/27/20 06:17 Chloride IV Infused Q12H [facility] Infusion Dexmedetomidine HC l 400 mcg/ 104 mls @ 0 mls/h r 05/26/20 23:45 05/27/20 04:44 Sodium Chloride IV 0.4 mcg/kg/hr .Q0M [facility] 8 mls/hr Titration Protocol Per Protocol Lisinopril 5 mg 05/27/20 08:00 Lisinopril 10 Mg Tablet PO DAILY@0800 [facility] Lorazepam 2 mg 05/26/20 17:51 05/26/20 22:23 Lorazepam 2 Mg/M l Inj 1 Ml IVP 2 mg Q6H PRN Administration Anxiety or seizur es Memantine 10 mg 05/26/20 20:00 05/26/20 19:15 Memantine 5 Mg T ablet PO 10 mg BID@0800,1999 [facility] Administration Methylprednisolone Sodium Succinate 40 mg 05/26/20 20:15 05/27/20 05:07 Methylprednisolo ne Sod Succ 40 Mg/ Ml Inj IVP 40 mg Q8H [facility] Administration Metoprolol Tartrat e 25 mg 05/26/20 21:00 05/26/20 20:31 Metoprolol Tartr ate 25 Mg Tablet PO 25 mg BID@0900,2100 [facility] Administration Mirtazapine 30 mg 05/26/20 20:00 05/26/20 19:15 Mirtazapine 30 M g Tablet PO 30 mg BEDTIME@1999 [facility] Administration Morphine Sulfate 2 mg 05/26/20 17:51 Morphine 4 Mg/Ml Sdv 1 Ml IVP Q4H PRN SEVERE PAIN Ondansetron HCl 4 mg 05/26/20 17:51 Ondansetron 2 Mg /Ml Sdv 2 Ml IVP Q6H PRN NAUSEA AND VOMITI NG Pantoprazole Sodiu m 40 mg 05/27/20 08:[address] 40 Mg Tablet PO DAILY@0800 [facility] Polyethylene Glyco l 17 gm 05/26/20 18:27 Polyethylene Gly col 3350 Pkt 17 Gm PO DAILY PRN Constipation Potassium Chloride 10 meq 05/27/20 08:00 Potassium Chlori de Er 10 Meq Table t PO DAILY@0800 [facility] Tamsulosin HCl 0.4 mg 05/26/20 22:00 05/26/20 21:01 Tamsulosin 0.4 M g Capsule PO 0.4 mg DAILY@2200 [facility] Administration codeine Allergy (Verified 05/08/20 21:10) Unknown levofloxacin [From Levaquin] Allergy (Verified 05/26/20 17:24) ADR-Dry Mucus Membranes Vitals/I&O/Wt Last Vital Signs Temp 97.5 F L 05/26/20 20:00 Pulse 75 05/27/20 06:17 Resp 26 H 05/27/20 06:10 BP 124/82 05/27/20 06:10 Pulse Ox 92 05/27/20 06:17 05/26/20 05/27/20 05/27/20 22:59 06:59 14:59 Intake Total 300 / 521.667 122 / 643.667 Output Total 550 / 550 Balance 300 / 521.667 -428 / 93.667 Weight last 48 hrs Weight 80.881 kg Weight 77.111 kg Physical Exam Const: COMMON NORMALS: no acute distress GENERAL APPEARANCE: cooperative, comfortable, lethargic and frail appearing ORIENTATION/CONSCIOUSNESS: Yes confused and Yes lethargic HENMT: COMMON NORMALS: normocephalic, atraumatic, hearing grossly normal bilaterally and moist oral mucous membranes HEAD & SCALP: normocephalic and atraumatic Eye: COMMON NORMALS: Equal, round and reactive pupils present, EOMs intact bilaterally and conjunctivae normal CONJUNCTIVA: Yes conjunctivae normal PUPIL: Yes Equal, round and reactive pupils present Neck/C-Spine: COMMON NORMALS: full ROM GENERAL: Yes normal visual inspection and Yes trachea midline Resp: COMMON NORMALS: normal respiratory effort, No retractions and No use of accessory muscles EFFORT & INSPECTION: Yes able to speak in complete sentences, Yes symmetric chest movement and No tachypneic AUSCULTATION: diminished lung sounds OTHER: -on 4 L NC Cardio: COMMON NORMALS: regular rate, regular rhythm, S1 normal heart sound present, S2 normal heart sound present and No murmurs present (Cardio) RATE: regular rate RHYTHM: regular rhythm HEART SOUNDS: S1 normal heart sound present and S2 normal heart sound present GI: COMMON NORMALS: Normal to inspection, nondistended, normoactive bowel sounds present, Soft to palpation and non-tender PALPATION: Yes Soft to palpation : BLADDER/KIDNEY EXAM: Yes catheter in place Extremity: COMMON NORMALS: normal to inspection, full ROM and no clubbing, cyanosis or edema; negative for no pedal edema Neuro: COMMON NORMALS: moves all extremities, no focal motor deficits and no s ensory deficits noted SENSORIUM/ORIENTATION: Yes lethargic and Yes somnolent Psych: COMMON NORMALS: cooperative, normal affect and speech normal ATTITUDE: Yes calm SPEECH: Yes normal speech THOUGHT PROCESS: confused Skin: COMMON NORMALS: no rashes or lesions noted, no jaundice, no petechiae and no mottling GENERAL SKIN EXAM: no rashes or lesions noted Urinary Catheter Management^: Correia: Cath Placed During This Visit: yes Reason for Continuing Indwelling Catheter: Accurate Measurement of Urinary Output in Critically Ill Patients Urinary Catheter Date of Insertion: 05/26/20 Urinary Catheter Time of Insertion: 13:10 Data : 05/27/20 03:30 05/27/20 03:30 Micro: Microbiology 05/26/20 12:19 Blood Culture - Preliminary Blood SPECIMEN COLLECTED 05/26/20 11:24 Blood Culture - Preliminary Blood SPECIMEN COLLECTED A&P Assessment and plan (1) Seizures: -witnessed seizure episodes in ED; no further episodes witnessed overnight -Ativan PRN -continue Keppra per discussion with Dr. Green -CT head with no acute changes -seizure, aspiration, fall precautions -unclear if triggered by infection as per family, has no prior hx of this -currently protecting his airway with BiPAP use, low threshold for intubation if continued seizure activity or further decompensation -CPK wnl Status: Acute (2) Pneumonia: -initially presented with respiratory distress, on BiPAP -noted evidence of new coarse interstitial thickening and reticulations in the mid and lower lungs suspicious for edema versus pneumonitis -Received a dose of Levaquin with what appears to be phlebitis on left forearm shortly thereafter. Continue ceftriaxone and azithromycin (day 2) -continue to monitor respiratory status closely -Weaned off BiPAP as tolerated; supplemental oxygen as needed -Currently afebrile, normotensive, no leukocytosis, lactic acid mildly elevated at 2.6 -rapid COVID-19 negative, PCR negative, d/c isolation precautions Status: Acute (3) Congestive heart failure (CHF): -possible acute CHF exacerbation with noted respiratory decompensation -gentle IV diuresis for now -Echo (07/2019): EF=30%, probable global hypokinesis -daily weights, monitor Is & Os -continue to monitor vital signs Status: Acute Qualifiers: Heart failure chronicity: acute on chronic Heart failure type: combined systolic and diastolic Qualified Code(s): I50.43 - Acute on chronic combined systolic (congestive) and diastolic (congestive) heart failure (4) Paroxysmal A-fib: -telemetry monitoring -continue metoprolol, Eliquis Status: Chronic (5) COPD (chronic obstructive pulmonary disease): -not oxygen dependent at baseline -BiPAP, supplemental oxygen as needed -Neb treatments, IV steroids, empiric antibiotics -continue to monitor respiratory status Status: Acute (6) Sepsis: Status: Acute Qualifiers: Sepsis acute organ dysfunction status: without acute organ dysfunction Sepsis type: sepsis due to unspecified organism Qualified Code(s): A41.9 - Sepsis, unspecified organism (7) Dementia: -continue meds Status: Chronic Qualifiers: Alzheimer's disease onset: unspecified onset Dementia behavioral disturbance: with behavioral disturbance Dementia type: Alzheimer's disease Qualified Code(s): G30.9 - Alzheimer's disease, unspecified; F02.81 - Dementia in other diseases classified elsewhere with behavioral disturbance (8) GERD (gastroesophageal reflux disease): -on PPI Status: Chronic Qualifiers: Esophagitis presence: esophagitis presence not specified Qualified Code(s): K21.9 - Gastro-esophageal reflux disease without esophagitis (9) Hyperlipidemia: -on statin Status: Chronic Qualifiers: Hyperlipidemia type: mixed hyperlipidemia Qualified Code(s): E78.2 - Mixed hyperlipidemia (10) History of hypertension: -continue to monitor vital signs -continue antihypertensives Status: Chronic Additional A&P Information -NPO for now; ST evaluation for swallow assessment -GI ppx with PPI -DVT ppx not needed as on Eliquis -Dispo: anticipate need for SNF, case management consulted -Code status: FULL code -may consider transfer from ICU if continued stability Attestations Medical Necessity Statement*: Patient requires hospitalization for continued management of pneumonia, acute COPD and CHF exacerbations, close monitoring of respiratory status. Time Spent in Patient Care: 16 - 35 minutes (>than 50% of time spent in counselling and/or direct pt care on unit) . Coding Level of Care Code Acute Application Systems Administrator for [facility] Fwd Exam Comprehensive Diagnoses Seizures R56.9 Pneumonia J18.9 Congestive heart failure (CHF) I50.43 Heart failure chronicity: acute on chronic Heart failure type: combined systolic and diastolic Paroxysmal A-fib I48.0 COPD (chronic obstructive pulmonary disease) J44.9 Sepsis A41.9 Sepsis acute organ dysfunction status: without acute organ dysfunction Sepsis type: sepsis due to unspecified organism Dementia G30.9; F02.81 Alzheimer's disease onset: unspecified onset Dementia behavioral disturbance: with behavioral disturbance Dementia type: Alzheimer's disease GERD (gastroesophageal reflux disease) K21.9 Esophagitis presence: esophagitis presence not specified Hyperlipidemia E78.2 Hyperlipidemia type: mixed hyperlipidemia History of hypertension Z86.79
[2020-05-27] MEDS: FUROsemide 10 mg/mL SDV 2mL 20 MG IVP ×2 (09:16→20:38)
[2020-05-27] MEDS: dexmedetomidine 400 MCG in sodium chloride 0.9% (100 ml) 100 ML 8 MCG IV (10:37)
[2020-05-27] MEDS: metoprolol tartrate 25 mg Tablet PO ×2 (12:01→20:35)
[2020-05-27] MEDS: donepezil 5 MG Tablet 10 MG PO (12:02)
[2020-05-27] MEDS: aspirin 81 mg Chew Tablet PO (12:02)
[2020-05-27] MEDS: pantoprazole DR 40 mg Tablet PO ×2 (12:03→12:17)
[2020-05-27] MEDS: lisinopril 10 mg Tablet 5 MG PO (12:03)
[2020-05-27] MEDS: potassium chloride ER 10 mEq Tablet PO ×2 (12:03→12:18)
[2020-05-27] MEDS: memantine 5 mg tablet 10 MG PO ×2 (12:22→20:41)
--- NOTE | 2020-05-27 16:35 | PC.SLP ---
Two attempts were made to evaluate the patient's swallowing function, however, the patient was too lethargic to fully participate in the assessment. Attempts will be made 05/28/2020 to assess the patient.
[2020-05-27 17:42] LABS: Coronavirus Test Green County Not Detected
[2020-05-27] MEDS: mirtazapine 30 mg Tablet PO (20:35)
[2020-05-27] MEDS: apixaban 5 mg Tablet PO (20:35)
[2020-05-27] MEDS: atorvastatin 40 mg Tablet 20 MG PO (20:36)
[2020-05-27] MEDS: tamsulosin 0.4 mg Capsule PO (20:38)
[2020-05-27] MEDS: azithromycin 500 MG in sodium chloride 0.9% 250 ML IV (20:38)
[2020-05-27] MEDS: cefTRIAXone 1,000 MG in sodium chloride 0.9% (plus) 50 ML 200 MG IV (20:40)
[2020-05-28] VITALS (22 sets, daily range): BP systolic 87–154; BP diastolic 52–83; PULSE 66–92; RESP 15–26; TEMP 36.4–37.1; O2SAT 90–98; BMI 27.1
[2020-05-28 03:36] LABS: Basophils % 0.1 %; Hematocrit 43.9 % (42.0-52.0); Hemoglobin 14.3 g/dL (11.7-16.6); Lymphocytes # 1.2 10^3/uL (0.8-4.8); Lymphocytes % 7.2 %; Mean Corpuscular HGB Conc 32.6 g/dL (30.0-36.0); Mean Corpuscular Hemoglobin 31.4 pg (28.0-34.0); Mean Corpuscular Volume 96.5 fL (80-94); Mean Platelet Volume 11.5 fL (7.4-10.4); Monocytes # 0.4 10^3/uL (0.2-0.9); Monocytes % 2.1 %; Neutrophils # 14.78 10^3/uL (1.8-7.7); Neutrophils % 90.1 %; Nucleated Red Blood Cells % 0 %; Platelet Count 213 10^3/cmm (130-400); Red Blood Count 4.55 10^6/uL (4.1-5.3); Red Cell Distribution Width 12.2 % (12.1-15.1); White Blood Count 16.4 10^3/uL (4.0-10.0)
[2020-05-28 03:57] LABS: Anion Gap 14.5 (5-19); Blood Urea Nitrogen 37 mg/dL (8-23); Calcium 9.1 mg/dL (8.5-10.5); Carbon Dioxide 28 mmol/L (22-29); Chloride 102 mmol/L (98-107); Glucose 134 mg/dL (65-115); Osmolality Calculated 301 mOsm/kg (285-295); Potassium 4.5 mmol/L (3.5-5.1); Sodium 140 mmol/L (136-145)
--- NOTE | 2020-05-28 07:53 | PM.PN ---
Subjective Subjective: Interval history: Slight increase in oxygen requirement, on 5 L NC, did not require BiPAP overnight, had 550 mL urine output overnight, VSS, afebrile. Awake and alert this morning, needs some assistance with his breakfast but otherwise reports feeling well although is somewhat confused. Off isolation precautions as COVID-19 test is negative. Required Precedex overnight. Will transfer to floor with sitter. Medications: Reviewed: Yes Medication Review Details: Active Medications Generic Name Dose Route Start Last Admin Trade Name Freq PRN Reason Stop Dose Admin Acetaminophen 650 mg 05/26/20 17:51 Acetaminophen 32 5 Mg Tablet PO Q6H PRN Mild/Mod Pain Or Temp >/= 101 Albuterol Sulfate 2 puff 05/26/20 18:18 Albuterol 8 Gm M di INHALATION Q4H.RESPIRATORY P RN SHORTNESS OF GI TH Apixaban 5 mg 05/26/20 19:00 05/27/20 20:35 Apixaban 5 Mg Ta blet PO 5 mg Q12H [facility] Administration Aspirin 81 mg 05/27/20 08:00 05/27/20 12:02 Aspirin 81 Mg Ch ew Tablet PO 81 mg DAILY@0800 [facility] Administration Atorvastatin Calci um 20 mg 05/26/20 21:00 05/27/20 20:36 Atorvastatin 40 Mg Tablet PO 20 mg BEDTIME [facility] Administration Donepezil HCl 10 mg 05/27/20 08:00 05/27/20 12:02 Donepezil 5 Mg T ablet PO 10 mg DAILY@0800 [facility] Administration Furosemide 20 mg 05/26/20 20:15 05/27/20 20:38 Furosemide 10 Mg /Ml Sdv 2ml IVP 20 mg Q12H [facility] Administration Sodium Chloride 1,000 mls @ 50 ml s/hr 05/26/20 17:51 05/27/20 14:33 Sodium Chloride 0.9% IV Not Given .Q20H [facility] Azithromycin 500 m g/ Sodium 250 mls @ 250 mls /hr 05/26/20 19:00 05/28/20 04:32 Chloride IV Infused Q24H [facility] Infusion Protocol Ceftriaxone Sodium 1,000 mg/ 50 mls @ 100 mls/ hr 05/26/20 20:00 05/28/20 04:32 Sodium Chloride IV Infused Q24H [facility] Infusion Protocol Levetiracetam 1,00 0 mg/ Sodium 110 mls @ 440 mls /hr 05/27/20 02:00 05/28/20 04:30 Chloride IV Not Given Q12H [facility] Dexmedetomidine HC l 400 mcg/ 104 mls @ 0 mls/h r 05/26/20 23:45 05/27/20 10:37 Sodium Chloride IV 0.4 mcg/kg/hr .Q0M [facility] 8 mls/hr Administration Protocol Per Protocol Lisinopril 5 mg 05/27/20 08:00 05/27/20 12:03 Lisinopril 10 Mg Tablet PO 5 mg DAILY@0800 [facility] Administration Lorazepam 2 mg 05/26/20 17:51 05/26/20 22:23 Lorazepam 2 Mg/M l Inj 1 Ml IVP 2 mg Q6H PRN Administration Anxiety or seizur es Memantine 10 mg 05/26/20 20:00 05/27/20 20:41 Memantine 5 Mg T ablet PO 10 mg BID@0800,1999 [facility] Administration Methylprednisolone Sodium Succinate 40 mg 05/26/20 20:15 05/28/20 04:33 Methylprednisolo ne Sod Succ 40 Mg/ Ml Inj IVP 40 mg Q8H [facility] Administration Metoprolol Tartrat e 25 mg 05/26/20 21:00 05/27/20 20:35 Metoprolol Tartr ate 25 Mg Tablet PO 25 mg BID@0900,2100 [facility] Administration Mirtazapine 30 mg 05/26/20 20:00 05/27/20 20:35 Mirtazapine 30 M g Tablet PO 30 mg BEDTIME@2000 [facility] Administration Morphine Sulfate 2 mg 05/26/20 17:51 Morphine 4 Mg/Ml Sdv 1 Ml IVP Q4H PRN SEVERE PAIN Ondansetron HCl 4 mg 05/26/20 17:51 Ondansetron 2 Mg /Ml Sdv 2 Ml IVP Q6H PRN NAUSEA AND VOMITI NG Pantoprazole Sodiu m 40 mg 05/27/20 08:00 05/27/20 12:[address] 40 Mg Tablet PO 40 mg DAILY@0800 [facility] Administration Polyethylene Glyco l 17 gm 05/26/20 18:27 Polyethylene Gly col 3350 Pkt 17 Gm PO DAILY PRN Constipation Potassium Chloride 10 meq 05/27/20 08:00 05/27/20 12:18 Potassium Chlori de Er 10 Meq Table t PO 10 meq DAILY@0800 [facility] Administration Tamsulosin HCl 0.4 mg 05/26/20 22:00 05/27/20 20:38 Tamsulosin 0.4 M g Capsule PO 0.4 mg DAILY@2200 [facility] Administration codeine Allergy (Verified 05/08/20 21:10) Unknown levofloxacin [From Levaquin] Allergy (Verified 05/26/20 17:24) ADR-Dry Mucus Membranes Vitals/I&O/Wt Last Vital Signs Temp 98.7 F 05/28/20 04:00 Pulse 80 05/28/20 06:34 Resp 16 05/28/20 06:00 BP 87/57 05/28/20 06:00 Pulse Ox 98 05/28/20 06:00 05/27/20 05/28/20 05/28/20 22:59 06:59 14:59 Intake Total 120 / 167.067 300 / 467.067 Output Total 550 / 550 1050 / 1600 Balance -430 / -382.933 -750 / -1132.933 Weight last 48 hrs Weight 80.881 kg Weight 80.881 kg Weight 77.111 kg Physical Exam Const: COMMON NORMALS: no acute distress and alert GENERAL APPEARANCE: cooperative, comfortable and frail appearing ORIENTATION/CONSCIOUSNESS: Yes awake and Yes confused OTHER: -sitting up in bed, in good spirits HENMT: COMMON NORMALS: normocephalic, atraumatic, hearing grossly normal bilaterally and moist oral mucous membranes HEAD & SCALP: normocephalic and atraumatic Eye: COMMON NORMALS: Equal, round and reactive pupils present, EOMs intact bilaterally and conjunctivae normal CONJUNCTIVA: Yes conjunctivae normal PUPIL: Yes Equal, round and reactive pupils present Neck/C-Spine: COMMON NORMALS: full ROM GENERAL: Yes normal visual inspection and Yes trachea midline Resp: COMMON NORMALS: normal respiratory effort, No retractions and No use of accessory muscles EFFORT & INSPECTION: Yes able to speak in complete sentences, Yes symmetric chest movement and No tachypneic AUSCULTATION: diminished lung sounds OTHER: -on 4 L NC Cardio: COMMON NORMALS: regular rate, regular rhythm, S1 normal heart sound present, S2 normal heart sound present and No murmurs present (Cardio) RATE: regular rate RHYTHM: regular rhythm HEART SOUNDS: S1 normal heart sound present and S2 normal heart sound present GI: COMMON NORMALS: Normal to inspection, nondistended, normoactive bowel sounds present, Soft to palpation and non-tender PALPATION: Yes Soft to palpation : BLADDER/KIDNEY EXAM: Yes catheter in place Extremity: COMMON NORMALS: normal to inspection, full ROM and no clubbing, cyanosis or edema; negative for no pedal edema Neuro: COMMON NORMALS: moves all extremities, no focal motor deficits and no sensory deficits noted SENSORIUM/ORIENTATION: Yes alert and Yes Orientation impaired SPEECH: speech normal Psych: COMMON NORMALS: cooperative, normal affect and speech normal ATTITUDE: Yes calm SPEECH: Yes normal speech THOUGHT PROCESS: confused Skin: COMMON NORMALS: no rashes or lesions noted, no jaundice, no petechiae and no mottling GENERAL SKIN EXAM: no rashes or lesions noted Urinary Catheter Management^: Correia: Cath Placed During This Visit: yes Reason for Continuing Indwelling Catheter: Accurate Measurement of Urinary Output in Critically Ill Patients Urinary Catheter Date of Insertion: 05/26/20 Urinary Catheter Time of Insertion: 13:10 Data : 05/28/20 02:58 05/28/20 02:58 Micro: Microbiology 05/26/20 12:19 Blood Culture - Preliminary Blood NEGATIVE TO DATE 05/26/20 11:24 Blood Culture - Preliminary Blood NEGATIVE TO DATE A&P Assessment and plan (1) Seizures: -witnessed seizure episodes in ED; no further episodes witnessed overnight -Ativan PRN -continue Keppra per discussion with Dr. Green -CT head with no acute changes -seizure, aspiration, fall precautions -unclear if triggered by infection as per family, has no prior hx of this -currently protecting his airway with BiPAP use, low threshold for intubation if continued seizure activity or further decompensation -CPK wnl Status: Acute (2) Pneumonia: -initially presented with respiratory distress, initially required BiPAP -noted evidence of new coarse interstitial thickening and reticulations in the mid and lower lungs suspicious for edema versus pneumonitis -Received a dose of Levaquin with what appears to be phlebitis on left forearm shortly thereafter. Continue ceftriaxone and azithromycin (day 3) -continue to monitor respiratory status closely -Weaned off BiPAP as tolerated; supplemental oxygen as needed -Currently afebrile, normotensive, no leukocytosis, lactic acid normalized (2.6->1.9) -rapid COVID-19 negative, PCR negative, d/c isolation precautions Status: Acute (3) Congestive heart failure (CHF): -possible acute CHF exacerbation with noted respiratory decompensation -hold IV diuresis for now due to renal impairment -Echo (07/2019): EF=30%, probable global hypokinesis -daily weights, monitor Is & Os -continue to monitor vital signs Status: Acute Qualifiers: Heart failure chronicity: acute on chronic Heart failure type: combined systolic and diastolic Qualified Code(s): I50.43 - Acute on chronic combined systolic (congestive) and diastolic (congestive) heart failure (4) Paroxysmal A-fib: -telemetry monitoring -continue metoprolol, Eliquis Status: Chronic (5) COPD (chronic obstructive pulmonary disease): -not oxygen dependent at baseline -BiPAP, supplemental oxygen as needed -Neb treatments, IV steroids, empiric antibiotics -continue to monitor respiratory status Status: Acute (6) Sepsis: Status: Acute Qualifiers: Sepsis acute organ dysfunction status: without acute organ dysfunction Sepsis type: sepsis due to unspecified organism Qualified Code(s): A41.9 - Sepsis, unspecified organism (7) Dementia: -continue meds -will require 1:1 sitter due to confusion, high fall risk Status: Chronic Qualifiers: Alzheimer's disease onset: unspecified onset Dementia behavioral disturbance: with behavioral disturbance Dementia type: Alzheimer's disease Qualified Code(s): G30.9 - Alzheimer's disease, unspecified; F02.81 - Dementia in other diseases classified elsewhere with behavioral disturbance (8) GERD (gastroesophageal reflux disease): -on PPI Status: Chronic Qualifiers: Esophagitis presence: esophagitis presence not specified Qualified Code(s): K21.9 - Gastro-esophageal reflux disease without esophagitis (9) Hyperlipidemia: -on statin Status: Chronic Qualifiers: Hyperlipidemia type: mixed hyperlipidemia Qualified Code(s): E78.2 - Mixed hyperlipidemia (10) History of hypertension: -continue to monitor vital signs -continue antihypertensives Status: Chronic Additional A&P Information -KRANTHI on CKD stage 2; baseline Cr is around 1, continue to monitor renal function, likely due to diuresis -mechanical soft diet; ST evaluation for swallow assessment appreciated -GI ppx with PPI -DVT ppx not needed as on Eliquis -Dispo: anticipate need for SNF, case management consulted. Sister has opted for home, likely with HH -Code status: FULL code -transfer to floor Attestations Medical Necessity Statement*: Patient requires hospitalization for continued treatment of pneumonia, monitoring of respiratory and hemodynamic status, renal function Time Spent in Patient Care: 16 - 35 minutes (>than 50% of time spent in counselling and/or direct pt care on unit). 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 [employer] Fwd Exam Comprehensive Diagnoses Seizures R56.9 Pneumonia J18.9 Congestive heart failure (CHF) I50.43 Heart failure chronicity: acute on chronic Heart failure type: combined systolic and diastolic Paroxysmal A-fib I48.0 COPD (chronic obstructive pulmonary disease) J44.9 Sepsis A41.9 Sepsis acute organ dysfunction status: without acute organ dysfunction Sepsis type: sepsis due to unspecified organism Dementia G30.9; F02.81 Alzheimer's disease onset: unspecified onset Dementia behavioral disturbance: with behavioral disturbance Dementia type: Alzheimer's disease GERD (gastroesophageal reflux disease) K21.9 Esophagitis presence: esophagitis presence not specified Hyperlipidemia E78.2 Hyperlipidemia type: mixed hyperlipidemia History of hypertension Z86.79
[2020-05-28] MEDS: donepezil 5 MG Tablet 10 MG PO (08:56)
[2020-05-28] MEDS: aspirin 81 mg Chew Tablet PO (08:56)
[2020-05-28] MEDS: apixaban 5 mg Tablet PO ×2 (08:56→18:26)
[2020-05-28] MEDS: memantine 5 mg tablet 10 MG PO ×2 (09:01→20:42)
[2020-05-28] MEDS: metoprolol tartrate 25 mg Tablet PO ×2 (09:02→20:44)
--- NOTE | 2020-05-28 12:58 | PC.NURSE ---
Shift Summary: Day was uneventful. In the morning, patient attempted to get up for the restroom and pulled on his balderrama catheter in the process. Scan amount of hematuria afterwards. Patient was able to swallow pills and lunch with no difficulties. remained oriented to person and place. Not time. Transferred patient to [facility] room 279-2. Report given to dominik. Belongings sent with patient included clothes, slippers, and dentures in a labeled cup.
--- NOTE | 2020-05-28 14:20 | PC.NURSE ---
ICU TRANSFER UP VIA W/C WITH JIMI PORCELAIN ENAMEL INSTALLER , AT SIDE - ASSIST TO BED PER ICU NURSE - 02 PLACED ON AT 2LNC - AP NOTED TO BE IRREGULAR - TELE NOTES A FIB - LUNGS COARSE THROUGHOUT - ABD SOFT WITH NO DISTENTION - BS PRESENT - WILLSON NOTED TO BE PATENT WITH PINK URINE NOTED IN [place] BAG - MARTINA SCD'S ON AND WORKING PER THIS NURSE - HOB AT 45 DEGREES PER ASPIRATION PRECAUTION - BED RAILS PADDED PER THIS NURSE - PT ALERT AND ORIENTATED TO SELF AND PLACE - UNAWARE OF TIME - 1:1 IN ROOM - CALL LIGHT AT SIDE - WILL CONTINUE TO MONITOR
--- NOTE | 2020-05-28 15:02 | PC.NURSE ---
1:1 sitter documentation For 1:1 sitter documentation - see paper sitter flow shit for this shift
--- NOTE | 2020-05-28 16:48 | PC.NURSE ---
PT UP WITH PT - AMBULATED TO RESTROOM - INCREASED SHORTNESS OF BREATH NOTED WHILE PT UP - RETURNED TO BED - 022LNC REMAINED - VSS - 02 SATS AT 96% - NO CHANGE IN HEART RHYTHM NOTED - RATE CURRENTLY 88-91- WILL CONTINUE TO MONITOR
[2020-05-28] MEDS: sodium chloride 0.9% 1,000 ML 50 ML IV (17:27)
[2020-05-28] MEDS: azithromycin 500 MG in sodium chloride 0.9% 250 ML 250 MG IV (18:24)
--- NOTE | 2020-05-28 19:17 | PHA.FALL ---
A Pharmacy Consult Was Conducted For Isaac Simpson Due To: Rivas Fall Scale Risk Level: High Fall Risk On 05/28/20 14:14 And A Medication Fall Risk Score Greater Than 10. The Recommendations Are As Follows:This patient is presently on Eliquis which may lead to an increased risk of bleeding secondary to a fall. Cogntive impairment and Parkinson's disease (Aricept; Namend) are associated with an increased frisk of balls; therefore, close monitoring is important. Lopressor and lisinopril are associted with adverse drug effects which my contribute to flls. We would certainly want to be cautious surronding administration of the Ativan and Morphine. Close monitoring is advised.
[2020-05-28] MEDS: atorvastatin 40 mg Tablet 20 MG PO (20:41)
[2020-05-28] MEDS: mirtazapine 30 mg Tablet PO (20:41)
[2020-05-28] MEDS: cefTRIAXone 1,000 MG in sodium chloride 0.9% (plus) 50 ML 200 MG IV (20:42)
[2020-05-28] MEDS: tamsulosin 0.4 mg Capsule PO (20:44)
[2020-05-29] VITALS (12 sets, daily range): BP systolic 127–150; BP diastolic 65–82; PULSE 62–81; RESP 18–24; TEMP 36.2–36.7; O2SAT 87–97
[2020-05-29 06:04] LABS: Basophils % 0.1 %; Lymphocytes # 1.2 10^3/uL (0.8-4.8); Lymphocytes % 8.3 %; Mean Corpuscular HGB Conc 32.6 g/dL (30.0-36.0); Mean Corpuscular Hemoglobin 31.4 pg (28.0-34.0); Mean Corpuscular Volume 96.4 fL (80-94); Mean Platelet Volume 11.2 fL (7.4-10.4); Monocytes # 0.2 10^3/uL (0.2-0.9); Monocytes % 1.2 %; Neutrophils # 13.13 10^3/uL (1.8-7.7); Neutrophils % 89.6 %; Nucleated Red Blood Cells % 0 %; Platelet Count 219 10^3/cmm (130-400); Red Blood Count 4.46 10^6/uL (4.1-5.3); Red Cell Distribution Width 12.2 % (12.1-15.1); White Blood Count 14.7 10^3/uL (4.0-10.0)
[2020-05-29 06:16] LABS: Anion Gap 13.5 (5-19); Blood Urea Nitrogen 32 mg/dL (8-23); Calcium 8.7 mg/dL (8.5-10.5); Carbon Dioxide 26 mmol/L (22-29); Chloride 105 mmol/L (98-107); Glucose 135 mg/dL (65-115); Magnesium 2.3 mg/dL (1.7-2.3); Osmolality Calculated 299 mOsm/kg (285-295); Potassium 4.5 mmol/L (3.5-5.1); Sodium 140 mmol/L (136-145)
[2020-05-29] MEDS: apixaban 5 mg Tablet PO ×2 (06:38→17:34)
[2020-05-29] MEDS: metoprolol tartrate 25 mg Tablet PO ×2 (09:27→21:12)
[2020-05-29] MEDS: donepezil 5 MG Tablet 10 MG PO (09:27)
[2020-05-29] MEDS: potassium chloride ER 10 mEq Tablet PO (09:27)
[2020-05-29] MEDS: pantoprazole DR 40 mg Tablet PO (09:27)
[2020-05-29] MEDS: memantine 5 mg tablet 10 MG PO ×2 (09:27→21:11)
[2020-05-29] MEDS: aspirin 81 mg Chew Tablet PO (09:27)
--- NOTE | 2020-05-29 10:35 | PC.SOCIAL ---
Pg 2 IMM Explained to pt's sister Cassidy, Pg 2 IMM. No questions voiced. Provided pt a copy. Signed, dated, & timed a copy & placed in chart.
--- NOTE | 2020-05-29 13:24 | P.PN_ITS ---
Subjective Subjective: Interval history: On 2 L NC, hemodynamically stable, afebrile, had 600 mL urine output overnight. Sitter at bedside, improving leukocytosis and renal function. Alert, remembers seeing me yesterday, very pleasant. Will d/c Correia. Medications: Reviewed: Yes Medication Review Details: Active Medications Generic Name Dose Route Start Last Admin Trade Name Freq PRN Reason Stop Dose Admin Acetaminophen 650 mg 05/26/20 17:51 Acetaminophen 32 5 Mg Tablet PO Q6H PRN Mild/Mod Pain Or Temp >/= 101 Albuterol Sulfate 2 puff 05/26/20 18:18 Albuterol 8 Gm M di INHALATION Q4H.RESPIRATORY P RN SHORTNESS OF GI TH Apixaban 5 mg 05/26/20 19:00 05/29/20 06:38 Apixaban 5 Mg Ta blet PO 5 mg Q12H GISSELLE Administration Aspirin 81 mg 05/27/20 08:00 05/29/20 09:27 Aspirin 81 Mg Ch ew Tablet PO 81 mg DAILY@0800 GISSELLE Administration Atorvastatin Calci um 20 mg 05/26/20 21:00 05/28/20 20:41 Atorvastatin 40 Mg Tablet PO 20 mg BEDTIME GISSELLE Administration Donepezil HCl 10 mg 05/27/20 08:00 05/29/20 09:27 Donepezil 5 Mg T ablet PO 10 mg DAILY@0800 GISSELLE Administration Furosemide 20 mg 05/26/20 20:15 05/27/20 20:38 Furosemide 10 Mg /Ml Sdv 2ml IVP 20 mg Q12H GISSELLE Administration Sodium Chloride 1,000 mls @ 50 ml s/hr 05/26/20 17:51 05/28/20 17:27 Sodium Chloride 0.9% IV 50 mls/hr .Q20H GISSELLE Administration Azithromycin 500 m g/ Sodium 250 mls @ 250 mls /hr 05/26/20 19:00 05/28/20 18:24 Chloride IV 250 mls/hr Q24H GISSELLE Administration Protocol Ceftriaxone Sodium 1,000 mg/ 50 mls @ 100 mls/ hr 05/26/20 20:00 05/28/20 20:42 Sodium Chloride IV 200 mls/hr Q24H GISSELLE Administration Protocol Levetiracetam 1,00 0 mg/ Sodium 110 mls @ 440 mls /hr 05/27/20 02:00 05/29/20 02:54 Chloride IV 400 mls/hr Q12H GISSELLE Administration Dexmedetomidine HC l 400 mcg/ 104 mls @ 0 mls/h r 05/26/20 23:45 05/27/20 10:37 Sodium Chloride IV 0.4 mcg/kg/hr .Q0M GISSELLE 8 mls/hr Administration Protocol Per Protocol Lisinopril 5 mg 05/27/20 08:00 05/27/20 12:03 Lisinopril 10 Mg Tablet PO 5 mg DAILY@0800 GISSELLE Administration Lorazepam 2 mg 05/26/20 17:51 05/26/20 22:23 Lorazepam 2 Mg/M l Inj 1 Ml IVP 2 mg Q6H PRN Administration Anxiety or seizur es Memantine 10 mg 05/26/20 20:00 05/29/20 09:27 Memantine 5 Mg T ablet PO 10 mg BID@799,1999 GISSELLE Administration Methylprednisolone Sodium Succinate 40 mg 05/26/20 20:15 05/29/20 04:14 Methylprednisolo ne Sod Succ 40 Mg/ Ml Inj IVP 40 mg Q8H GISSELLE Administration Metoprolol Tartrat e 25 mg 05/26/20 21:00 05/29/20 09:27 Metoprolol Tartr ate 25 Mg Tablet PO 25 mg BID@0900,2100 GISSELLE Administration Mirtazapine 30 mg 05/26/20 20:00 05/28/20 20:41 Mirtazapine 30 M g Tablet PO 30 mg BEDTIME@1999 GISSELLE Administration Morphine Sulfate 2 mg 05/26/20 17:51 Morphine 4 Mg/Ml Sdv 1 Ml IVP Q4H PRN SEVERE PAIN Ondansetron HCl 4 mg 05/26/20 17:51 Ondansetron 2 Mg /Ml Sdv 2 Ml IVP Q6H PRN NAUSEA AND VOMITI NG Pantoprazole Sodiu m 40 mg 05/27/20 08:00 05/29/20 09:[address] 40 Mg Tablet PO 40 mg DAILY@0800 GISSELLE Administration Polyethylene Glyco l 17 gm 05/26/20 18:27 Polyethylene Gly col 3350 Pkt 17 Gm PO DAILY PRN Constipation Potassium Chloride 10 meq 05/27/20 08:00 05/29/20 09:27 Potassium Chlori de Er 10 Meq Table t PO 10 meq DAILY@0800 GISSELLE Administration Tamsulosin HCl 0.4 mg 05/26/20 22:00 05/28/20 20:44 Tamsulosin 0.4 M g Capsule PO 0.4 mg DAILY@2200 GISSELLE Administration codeine Allergy (Verified 05/08/20 21:10) Unknown levofloxacin [From Levaquin] Allergy (Verified 05/26/20 17:24) ADR-Dry Mucus Membranes Vitals/I&O/Wt Last Vital Signs Temp 98.0 F 05/29/20 12:00 Pulse 81 05/29/20 12:00 Resp 18 05/29/20 12:00 BP 127/80 05/29/20 12:00 Pulse Ox 96 05/29/20 12:00 05/28/20 05/29/20 05/29/20 22:59 06:59 14:59 Intake Total 450 / 690 120 / 120 Output Total 500 / 500 600 / 1100 Balance -50 / 190 -600 / -410 120 / 120 Weight last 48 hrs Weight 70.534 kg Weight 80.881 kg Physical Exam Const: COMMON NORMALS: no acute distress and alert GENERAL APPEARANCE: cooperative, comfortable and frail appearing ORIENTATION/CONSCIOUSNESS: Yes awake and Yes confused OTHER: -resting in bed, in good spirits HENMT: COMMON NORMALS: normocephalic, atraumatic, hearing grossly normal bilaterally and moist oral mucous membranes HEAD & SCALP: normocephalic and atraumatic Eye: COMMON NORMALS: Equal, round and reactive pupils present, EOMs intact bilaterally and conjunctivae normal CONJUNCTIVA: Yes conjunctivae normal PUPIL: Yes Equal, round and reactive pupils present Neck/C-Spine: COMMON NORMALS: full ROM GENERAL: Yes normal visual inspection and Yes trachea midline Resp: COMMON NORMALS: normal respiratory effort, No retractions and No use of accessory muscles EFFORT & INSPECTION: Yes able to speak in complete sentences, Yes symmetric chest movement and No tachypneic AUSCULTATION: diminished lung sounds OTHER: -on 2 L NC Cardio: COMMON NORMALS: regular rate, regular rhythm, S1 normal heart sound present, S2 normal heart sound present and No murmurs present (Cardio) RATE: regular rate RHYTHM: regular rhythm HEART SOUNDS: S1 normal heart sound present and S2 normal heart sound present GI: COMMON NORMALS: Normal to inspection, nondistended, normoactive bowel sounds present, Soft to palpation and non-tender PALPATION: Yes Soft to palpation : BLADDER/KIDNEY EXAM: Yes catheter in place Extremity: COMMON NORMALS: normal to inspection, full ROM and no clubbing, cyanosis or edema; negative for no pedal edema Neuro: COMMON NORMALS: moves all extremities, no focal motor deficits and no sensory deficits noted SENSORIUM/ORIENTATION: Yes alert and Yes Orientation impaired SPEECH: speech normal Psych: COMMON NORMALS: cooperative, normal affect and speech normal ATTITUDE: Yes calm SPEECH: Yes normal speech THOUGHT PROCESS: confused Skin: COMMON NORMALS: no rashes or lesions noted, no jaundice, no petechiae and no mottling GENERAL SKIN EXAM: no rashes or lesions noted Urinary Catheter Management^: Correia: Cath Placed During This Visit: yes Reason for Continuing Indwelling Catheter: Other Urinary Catheter Date of Insertion: 05/26/20 Urinary Catheter Time of Insertion: 13:10 Data : 05/29/20 05:42 05/29/20 05:42 A&P Assessment and plan (1) Seizures: -witnessed seizure episodes in ED; no further episodes witnessed overnight -Ativan PRN -continue Keppra per discussion with Dr. Green -CT head with no acute changes -seizure, aspiration, fall precautions -unclear if triggered by infection as per family, has no prior hx of this -currently protecting his airway with BiPAP use, low threshold for intubation if continued seizure activity or further decompensation -CPK wnl Status: Acute (2) Pneumonia: -initially presented with respiratory distress, initially required BiPAP -noted evidence of new coarse interstitial thickening and reticulations in the mid and lower lungs suspicious for edema versus pneumonitis -Received a dose of Levaquin with what appears to be phlebitis on left forearm shortly thereafter. Continue ceftriaxone and azithromycin (day 4) -continue to monitor respiratory status closely -Weaned off BiPAP as tolerated; supplemental oxygen as needed -Currently afebrile, normotensive, no leukocytosis, lactic acid normalized (2.6- >1.9) -rapid COVID-19 negative, PCR negative, d/c isolation precautions Status: Acute (3) Congestive heart failure (CHF): -possible acute CHF exacerbation with noted respiratory decompensation -hold IV diuresis for now due to renal impairment -Echo (07/2019): EF=30%, probable global hypokinesis -daily weights, monitor Is & Os -continue to monitor vital signs Status: Acute Qualifiers: Heart failure chronicity: acute on chronic Heart failure type: combined systolic and diastolic Qualified Code(s): I50.43 - Acute on chronic combined systolic (congestive) and diastolic (congestive) heart failure (4) Paroxysmal A-fib: -telemetry monitoring -continue metoprolol, Eliquis Status: Chronic (5) COPD (chronic obstructive pulmonary disease): -not oxygen dependent at baseline -BiPAP, supplemental oxygen as needed -Neb treatments, IV steroids, empiric antibiotics -continue to monitor respiratory status Status: Acute (6) Sepsis: Status: Acute Qualifiers: Sepsis acute organ dysfunction status: without acute organ dysfunction Sepsis type: sepsis due to unspecified organism Qualified Code(s): A41.9 - Sepsis, unspecified organism (7) Dementia: -continue meds -has 1:1 sitter due to confusion, high fall risk Status: Chronic Qualifiers: Alzheimer's disease onset: unspecified onset Dementia behavioral d isturbance: with behavioral disturbance Dementia type: Alzheimer's disease Qualified Code(s): G30.9 - Alzheimer's disease, unspecified; F02.81 - Dementia in other diseases classified elsewhere with behavioral disturbance (8) GERD (gastroesophageal reflux disease): -on PPI Status: Chronic Qualifiers: Esophagitis presence: esophagitis presence not specified Qualified Code(s): K21.9 - Gastro-esophageal reflux disease without esophagitis (9) Hyperlipidemia: -on statin Status: Chronic Qualifiers: Hyperlipidemia type: mixed hyperlipidemia Qualified Code(s): E78.2 - Mixed hyperlipidemia (10) History of hypertension: -continue to monitor vital signs -continue antihypertensives Status: Chronic Additional A&P Information -KRANTHI on CKD stage 2; baseline Cr is around 1, continue to monitor renal function, likely due to diuresis. Improving renal function. -mechanical soft diet; ST evaluation for swallow assessment appreciated -GI ppx with PPI -DVT ppx not needed as on Eliquis -Dispo: Sister has opted for home, with HH (Luigi) -Code status: FULL code -anticipate d/c in 24-48 hrs if continued stability/improvement Attestations Medical Necessity Statement*: Patient requires hospitalization for continued treatment of pneumonia, continued monitoring of renal function. Time Spent in Patient Care: 16 - 35 minutes (>than 50% of time spent in counselling and/or direct pt care on unit) . Coding Level of Care Code Acute Library Services Coordinator for Chg Fwd Exam Comprehensive Diagnoses Seizures R56.9 Pneumonia J18.9 Congestive heart failure (CHF) I50.43 Heart failure chronicity: acute on chronic Heart failure type: combined systolic and diastolic Paroxysmal A-fib I48.0 COPD (chronic obstructive pulmonary disease) J44.9 Sepsis A41.9 Sepsis acute organ dysfunction status: without acute organ dysfunction Sepsis type: sepsis due to unspecified organism Dementia G30.9; F02.81 Alzheimer's disease onset: unspecified onset Dementia behavioral disturbance: with behavioral disturbance Dementia type: Alzheimer's disease GERD (gastroesophageal reflux disease) K21.9 Esophagitis presence: esophagitis presence not specified Hyperlipidemia E78.2 Hyperlipidemia type: mixed hyperlipidemia History of hypertension Z86.79
--- NOTE | 2020-05-29 13:27 | PC.RESP ---
Pulmonary Rehab information sent to patient.
[2020-05-29] MEDS: azithromycin 250 mg Tablet 500 MG PO (13:46)
[2020-05-29] MEDS: levETIRAcetam 500 mg Tablet 1000 MG PO (17:34)
[2020-05-29] MEDS: cefTRIAXone 1,000 MG in sodium chloride 0.9% (plus) 50 ML 200 MG IV (21:10)
[2020-05-29] MEDS: mirtazapine 30 mg Tablet PO (21:11)
[2020-05-29] MEDS: atorvastatin 40 mg Tablet 20 MG PO (21:11)
[2020-05-29] MEDS: tamsulosin 0.4 mg Capsule PO (21:12)
--- NOTE | 2020-05-29 22:45 | PC.NURSE ---
Patient moved to room 251-1
[2020-05-30] VITALS (9 sets, daily range): BP systolic 113–153; BP diastolic 61–85; PULSE 61–79; RESP 16–20; TEMP 36.3–36.9; O2SAT 88–98
[2020-05-30] MEDS: LORazepam 2 mg/mL INJ 1 mL IVP (02:26)
--- NOTE | 2020-05-30 04:44 | PC.NURSE ---
had a accident in the bed
[2020-05-30 05:57] LABS: Basophils % 0.1 %; Eosinophils % 0.1 %; Hematocrit 42.5 % (42.0-52.0); Hemoglobin 13.8 g/dL (11.7-16.6); Lymphocytes # 2.8 10^3/uL (0.8-4.8); Mean Corpuscular HGB Conc 32.5 g/dL (30.0-36.0); Mean Corpuscular Hemoglobin 31.6 pg (28.0-34.0); Mean Corpuscular Volume 97.3 fL (80-94); Mean Platelet Volume 11.6 fL (7.4-10.4); Monocytes # 0.9 10^3/uL (0.2-0.9); Monocytes % 7.4 %; Neutrophils % 68.7 %; Nucleated Red Blood Cells % 0 %; Platelet Count 215 10^3/cmm (130-400); Red Blood Count 4.37 10^6/uL (4.1-5.3); Red Cell Distribution Width 12.2 % (12.1-15.1); White Blood Count 12.2 10^3/uL (4.0-10.0)
[2020-05-30] MEDS: apixaban 5 mg Tablet PO (06:19)
[2020-05-30 06:26] LABS: Blood Urea Nitrogen 24 mg/dL (8-23); Calcium 8.4 mg/dL (8.5-10.5); Carbon Dioxide 27 mmol/L (22-29); Chloride 109 mmol/L (98-107); Glucose 92 mg/dL (65-115); Osmolality Calculated 302 mOsm/kg (285-295); Sodium 144 mmol/L (136-145)
[2020-05-30] MEDS: levETIRAcetam 500 mg Tablet 1000 MG PO (08:06)
[2020-05-30] MEDS: donepezil 5 MG Tablet 10 MG PO (08:07)
[2020-05-30] MEDS: azithromycin 250 mg Tablet 500 MG PO (08:07)
[2020-05-30] MEDS: pantoprazole DR 40 mg Tablet PO (08:07)
[2020-05-30] MEDS: FUROsemide 40 mg Tablet PO (08:07)
[2020-05-30] MEDS: potassium chloride ER 10 mEq Tablet PO (08:07)
[2020-05-30] MEDS: lisinopril 10 mg Tablet 5 MG PO (08:07)
[2020-05-30] MEDS: aspirin 81 mg Chew Tablet PO (08:08)
[2020-05-30] MEDS: memantine 5 mg tablet 10 MG PO (08:09)
[2020-05-30] MEDS: metoprolol tartrate 25 mg Tablet PO (08:09)
--- NOTE | 2020-05-30 08:51 | PM.DCS ---
Discharge Providers Date of Admission: 05/26/20 12:57 Date of Discharge: May 30, 2020 Attending Provider at Admission: Nancy Escobar MD Attending Provider at Discharge: Nancy Escobar MD Consults: None Primary Care Provider: Dr. Montes Diagnoses at Discharge Discharge Diagnosis (1) Seizures: Status: Acute Permanent problem details: -witnessed seizure episodes in ED; no further episodes during hospitalization -Ativan PRN -continue Keppra per discussion with Dr. Green; outpatient neuro f/u -CT head with no acute changes -unclear if triggered by infection as per family, has no prior hx of this -CPK wnl (2) Pneumonia: Status: Acute Permanent problem details: -initially presented with respiratory distress, initially required BiPAP, weaned to NC -noted evidence of new coarse interstitial thickening and reticulations in the mid and lower lungs suspicious for edema versus pneumonitis -Received a dose of Levaquin with what appears to be phlebitis on left forearm shortly thereafter. Continue ceftriaxone and azithromycin (day 5) -continue to monitor respiratory status closely -afebrile, normotensive, no leukocytosis, lactic acid normalized (2.6->1.9) -rapid COVID-19 negative, PCR negative Qualifiers: Laterality: bilateral Lung location: lower lobe of lung Pneumonia type: due to unspecified organism Qualified Code(s): J18.9 - Pneumonia, unspecified organism (3) Congestive heart failure (CHF): Status: Acute Permanent problem details: -possible acute CHF exacerbation with noted respiratory decompensation -on oral diuresis -Echo (07/2019): EF=30%, probable global hypokinesis Qualifiers: Heart failure chronicity: acute on chronic Heart failure type: combined systolic and diastolic Qualified Code(s): I50.43 - Acute on chronic combined systolic (congestive) and diastolic (congestive) heart failure (4) Paroxysmal A-fib: Status: Chronic Permanent problem details: -on BB, Eliquis (5) COPD (chronic obstructive pulmonary disease): Status: Acute Permanent problem details: -not oxygen dependent at baseline Qualifiers: COPD type: COPD with acute exacerbation Qualified Code(s): J44.1 - Chronic obstructive pulmonary disease with (acute) exacerbation (6) Sepsis: Status: Resolved Qualifiers: Sepsis acute organ dysfunction status: without acute organ dysfunction Sepsis type: sepsis due to unspecified organism Qualified Code(s): A41.9 - Sepsis, unspecified organism (7) Dementia: Status: Chronic Permanent problem details: -did require 1:1 monitoring Qualifiers: Alzheimer's disease onset: unspecified onset Dementia behavioral disturbance: with behavioral disturbance Dementia type: Alzheimer's disease Qualified Code(s): G30.9 - Alzheimer's disease, unspecified; F02.81 - Dementia in other diseases classified elsewhere with behavioral disturbance (8) GERD (gastroesophageal reflux disease): Status: Chronic Permanent problem details: -on PPI Qualifiers: Esophagitis presence: esophagitis presence not specified Qualified Code(s): K21.9 - Gastro-esophageal reflux disease without esophagitis (9) Hyperlipidemia: Status: Chronic Permanent problem details: -on statin Qualifiers: Hyperlipidemia type: mixed hyperlipidemia Qualified Code(s): E78.2 - Mixed hyperlipidemia (10) History of hypertension: Status: Chronic Other Information Additional DC diagnoses/information: -CKD stage 2; renal function improving, baseline Cr is around 1 Reason for Visit Reason for Visit: SOB Hospital Course Hospital Course Patient was admitted to ICU after having had at least 3 witnessed seizure episodes in the ER upon his evaluation. He required Ativan and a load of Keppra and has had no further seizure episodes during his hospital stay. Case was briefly discussed with Dr. Green who recommended continuation of Keppra. Patient was placed on isolation precautions secondary to having some respiratory distress and initially requiring BiPAP with noted evidence of coarse interstitial thickening and reticulations in the mid and lower lungs. He received a dose of Levaquin with what appeared to be phlebitis evident on his left forearm so has been on treatment with ceftriaxone and azithromycin. COVID-19 test is negative, both rapid and PCR at which point she was taken off isolation precautions. There was initial concern for sepsis which has since resolved with continued treatment. His mentation improved approximately 36 to 48 hours after admission as well as his respiratory status and he was weaned off BiPAP and transitioned to nasal cannula. He was transferred to the medical surgical floor and did require one-on-one monitoring secondary to underlying dementia and intermittent confusion. Blood cultures have been negative so far, sputum culture is pending though Gram stain has grown rare gram-positive cocci. Since he has required some supplemental oxygen support and is not oxygen dependent at baseline he has had a home oxygen evaluation done prior to discharge. He was evaluated by speech therapy to rule out aspiration as a contributing factor to infection and was cleared for a mechanical soft diet which he has tolerated well. With improvement in mental status Correia catheter was discontinued and he has been able to void independently without difficulty. Disposition was discussed with patient's sister and she opted to have patient return home with continued home health services through [facility] [place]. Patient is to continue oral antibiotic therapy and will need to follow-up with his primary care physician within 1 week. He is counseled on need to seek medical attention immediately should he have recurrent symptoms. Physical Exam Const: COMMON NORMALS: no acute distress and alert GENERAL APPEARANCE: cooperative, comfortable and frail appearing ORIENTATION/CONSCIOUSNESS: Yes awake and Yes confused OTHER: -resting in bed, in good spirits HENMT: COMMON NORMALS: normocephalic, atraumatic, hearing grossly normal bilaterally and moist oral mucous membranes HEAD & SCALP: normocephalic and atraumatic Eye: COMMON NORMALS: Equal, round and reactive pupils present, EOMs intact bilaterally and conjunctivae normal CONJUNCTIVA: Yes conjunctivae normal PUPIL: Yes Equal, round and reactive pupils present Neck/C-Spine: COMMON NORMALS: full ROM GENERAL: Yes normal visual inspection and Yes trachea midline Resp: COMMON NORMALS: normal respiratory effort, No retractions and No use of accessory muscles EFFORT & INSPECTION: Yes able to speak in complete sentences, Yes symmetric chest movement and No tachypneic AUSCULTATION: diminished lung sounds OTHER: -on RA Cardio: COMMON NORMALS: regular rate, regular rhythm, S1 normal heart sound present, S2 normal heart sound present and No murmurs present (Cardio) RATE: regular rate RHYTHM: regular rhythm HEART SOUNDS: S1 normal heart sound present and S2 normal heart sound present GI: COMMON NORMALS: Normal to inspection, nondistended, normoactive bowel sounds present, Soft to palpation and non-tender PALPATION: Yes Soft to palpation Extremity: COMMON NORMALS: normal to inspection, full ROM and no clubbing, cyanosis or edema; negative for no pedal edema Neuro: COMMON NORMALS: moves all extremities, no focal motor deficits and no sensory deficits noted SENSORIUM/ORIENTATION: Yes alert and Yes Orientation impaired SPEECH: speech normal Psych: COMMON NORMALS: cooperative, normal affect and speech normal ATTITUDE: Yes calm SPEECH: Yes normal speech THOUGHT PROCESS: confused Skin: COMMON NORMALS: no rashes or lesions noted, no jaundice, no petechiae and no mottling GENERAL SKIN EXAM: no rashes or lesions noted Urinary Catheter Management^: Correia: Cath Placed During This Visit: yes, but has since been removed by the nurse Reason for Continuing Indwelling Catheter: Decision to DC Catheter Urinary Catheter Date of Insertion: 05/26/20 Urinary Catheter Time of Insertion: 13:10 Date Urinary Catheter Removed: 05/29/20 Time Urinary Catheter Discontinued: 21:38 Discharge Data Data Completed and Pending: Completed Studies During Hospitalization Category Date Time Status CT head wo con* 7 [id number] Stat Cat Scan 05/26/20 13:57 Completed XR chest 1V brian ble [id number] Stat Exams 05/26/20 11:20 Completed Pending at discharge Category Date Time Status Blood Culture Sta t Lab 05/26/20 12:19 Results Sputum Culture an d Gram Stain Routi ne Lab 05/28/20 20:50 Results Labs from last 24 hours 05/30/20 05/30/20 05:04 05:04 WBC 12.2 H RBC 4.37 Hgb 13.8 Hct 42.5 MCV 97.3 H MCH 31.6 MCHC 32.5 RDW 12.2 Plt Count 215 MPV 11.6 H Neut % (Auto) 68.7 Lymph % (Auto) 23.0 [place] % (Auto) 7.4 Eos % (Auto) 0.1 Baso % (Auto) 0.1 Neut # (Auto) 8.40 H Lymph # (Auto) 2.8 [place] # (Auto) 0.9 Eos # (Auto) 0.0 Baso # (Auto) 0.0 Nucleated RBC % (a uto) 0 Nucleated RBCs # 0.0 Sodium 144 Potassium 4.0 Chloride 109 H Carbon Dioxide 27 Anion Gap 12.0 BUN 24 H Creatinine 1.4 H GFR Calculation Not Reportable Glucose 92 Calculated Osmolal ity 302 H Calcium 8.4 L Vitals: Last Vital Signs Temp 98.4 F 05/30/20 07:21 Pulse 72 05/30/20 07:21 Resp 16 05/30/20 07:21 BP 133/80 05/30/20 07:21 Pulse Ox 96 05/30/20 07:21 Discharge Plan Discharge Patient Disposition: Home Health Service Condition: Stable Prescriptions: New azithromycin 250 mg Tablet 500 mg PO DAILY 5 Days Qty: 10 RF: 0 levetiracetam 500 mg Tablet 1,000 mg PO BID 30 Days Qty: 120 RF: 0 metoprolol tartrate 25 mg Tablet 25 mg PO BID@0900,2100 30 Days Qty: 60 RF: 0 Continued Eliquis 5 mg tablet 5 mg PO Q12H Qty: 60 RF: 6 tamsulosin [Flomax] 0.4 mg Capsule 0.4 mg PO DAILY@2200 RF: 0 mirtazapine [Remeron] 30 mg Tablet 30 mg PO BEDTIME@1999 RF: 0 memantine 10 mg Tablet 10 mg PO BID@0800,1999 RF: 0 polyethylene glycol 3350 [Miralax] 17 gram/dose Powder 17 g PO DAILY PRN (Reason: Constipation) RF: 0 potassium chloride 10 mEq tablet extended release 10 meq PO DAILY@0800 RF: 0 furosemide 40 mg tablet 40 mg PO DAILY@0800 Qty: 30 RF: 0 donepezil 10 mg tablet 10 mg PO DAILY@0800 RF: 0 pantoprazole 40 mg tablet,delayed release (DR/EC) 40 mg PO DAILY@0800 RF: 0 aspirin 81 mg Tablet,Chewable 81 mg PO DAILY@0800 RF: 0 albuterol sulfate 2.5 mg /3 mL (0.083 %) solution for nebulization 2.5 mg inhalation Q6H PRN (Reason: Shortness Of Breath) Qty: 90 RF: 0 Changed lisinopril 10 mg tablet 5 mg PO DAILY@0800 Qty: 30 RF: 0 atorvastatin 10 mg tablet 20 mg PO BEDTIME Qty: 0 RF: 0 Discontinued metoprolol succinate 100 mg tablet extended release 24 hr 100 mg PO DAILY@0800 RF: 0 rosuvastatin 20 mg tablet 20 mg PO DAILY@1700 RF: 0 Discharge Orders: Discharge Order (Routine); Ordered 05/30/20 Ordered By: Nancy Escobar Referrals: Colleen Green MD [Physician] - 1 month (New onset seizure disorder) Quintin Montes MD [Physician] - 4-7 days Discharge Diet: Soft Mechanical Discharge Activity: Increase activity as tolerated and As per PT/OT instructions Discharge Attestations Time Spent in Discharge Care*: greater than 30 min Specific Discharge Activities: educating and/or supporting family/caregiver, discussing with case resolution specialist/social workers/dc planners, documenting/other paperwork and evaluating patient/reviewing data Status at Discharge: Cognitive status at discharge: cognitively intact, Behavioral status at discharge: cooperative and dependent in ADL's, Functional status at discharge: uses cane/walker Overall status at discharge: patient is progressing back to baseline Quality Metrics Clinical Quality Measures During this hospital stay, did patient experience: None Coding Level of Care Code Acute Associate Professor [employer] for g Fwd Exam Comprehensive Diagnoses Seizures R56.9 Pneumonia J18.9 Laterality: bilateral Lung location: lower lobe of lung Pneumonia type: due to unspecified organism Congestive heart failure (CHF) I50.43 Heart failure chronicity: acute on chronic Heart failure type: combined systolic and diastolic Paroxysmal A-fib I48.0 COPD (chronic obstructive pulmonary disease) J44.1 COPD type: COPD with acute exacerbation Sepsis A41.9 Sepsis acute organ dysfunction status: without acute organ dysfunction Sepsis type: sepsis due to unspecified organism Dementia G30.9; F02.81 Alzheimer's disease onset: unspecified onset Dementia behavioral disturbance: with behavioral disturbance Dementia type: Alzheimer's disease GERD (gastroesophageal reflux disease) K21.9 Esophagitis presence: esophagitis presence not specified Hyperlipidemia E78.2 Hyperlipidemia type: mixed hyperlipidemia History of hypertension Z86.79
[2020-05-30] MEDS: albuterol 8 gm MDI 2 PUFF INHALATION (09:44)
--- NOTE | 2020-05-30 14:06 | PC.NURSE ---
[facility] TO DISCHARGE WITH [facility] - REPORT SHEET FAXED
--- NOTE | 2020-05-30 15:51 | PC.NURSE ---
DISCHARGE INSTRUCTIONS DISCHARGE INSTRUCTIONS GIVEN TO SISTER PER THIS NURSE VIA TELEPHONE CALL - VERBALIZES UNDERSTANDING OF ALL
== END 2020-05-30 16:40 | disposition home health service (06) | DRG 871 ==
LOC: ER 15:26 → ICU 16:30 → MEDSURG 05-28 13:15
PROVIDERS: Admitting Provider Family Medicine; Emergency Provider Family Medicine; Visit Provider Family Medicine
DX: A41.9 Sepsis, unspecified organism (principal); I50.43 Acute on chronic combined systolic (congestive) and diastolic (congestive) heart failure; J44.0 Chronic obstructive pulmonary disease with (acute) lower respiratory infection; J44.1 Chronic obstructive pulmonary disease with (acute) exacerbation; I13.0 Hypertensive heart and chronic kidney disease with heart failure and stage 1 through stage 4 chronic kidney disease, or unspecified chronic kidney disease; N17.9 Acute kidney failure, unspecified; R56.9 Unspecified convulsions; G30.9 Alzheimer's disease, unspecified; F02.80 Dementia in other diseases classified elsewhere, unspecified severity, without behavioral disturbance, psychotic disturbance, mood disturbance, and anxiety; R25.1 Tremor, unspecified; K21.9 Gastro-esophageal reflux disease without esophagitis; N18.2 Chronic kidney disease, stage 2 (mild); E78.2 Mixed hyperlipidemia; Z87.891 Personal history of nicotine dependence; I48.0 Paroxysmal atrial fibrillation; I80.8 Phlebitis and thrombophlebitis of other sites; Z79.01 Long term (current) use of anticoagulants; Z79.82 Long term (current) use of aspirin; Z79.51 Long term (current) use of inhaled steroids
CPT/HCPCS: 12345; 36415; 36600; 51702; 70450; 71045; 80048; 80051; 80053; 81003; 82009; 82330; 82550; 82805; 83605; 83735; 84484; 85025; 85378; 87040; 87070; 87205; 87426; 87635; 92523; 92610; 93005; 94640; 94660; 94664; 97116; 97161; 97530; 99283; 99291; J0456; J0696; J1100; J1200; J1940; J1953; J1956; J2060; J2920; J3535; J7030; J7050; Q0144